=== PATIENT | male | born 1965 | race American Indian/Alaskan Native ===

== ENCOUNTER 2020-04-08 21:30 | Inpatient (IN) | payer OTHER ==
--- NOTE | 2020-04-08 21:51 | Emergency Department Report ---
ED Shortness of Breath HPI - General Chief Complaint: Dyspnea/Respdistress Stated Complaint: SOB/COVID + Time Seen by Provider: 04/08/20 21:46 Source: patient, EMS Mode of arrival: Stretcher Limitations: No Limitations - History of Present Illness Initial Comments: Patient is a 55-year-old male who presents emergency room with complaints of shortness of breath, Covid positive, cough, fever, chills, diarrhea, loss of smell and taste. Patient states his symptoms started 5 days ago. Patient states he was diagnosed 3 days ago with COVID-19. Patient states his symptoms are worsening. Patient states he is taking Tylenol for his fever and chills. Patient states his diarrhea has improved. Patient states his shortness of breath is better with rest and worse with exertion. Patient brought in by EMS. EMS report received. Patient on initial assessment was 86% on room air and was placed on 15 L and remained 86%. Patient states he feels better with the oxygen. MD Complaint: shortness of breath, cough -: Sudden Severity: severe Consistency: constant Improves With: rest Worsens With: exertion Known History Of: other Context: recent URI Associated Symptoms: fever, cough Treatments Prior to Arrival: oxygen - Related Data Home Oxygen Therapy: No Allergies Allergy/AdvReac Type Severity Reaction Status Date / Time No Known Allergies Allergy Unverified 04/08/20 22:37 ED Review of Systems ROS: Stated complaint: SOB/COVID + Other details as noted in HPI Constitutional: chills, fever, malaise Eyes: denies: eye pain, eye discharge, vision change ENT: denies: ear pain, throat pain Respiratory: see HPI, cough, shortness of breath. denies: wheezing Cardiovascular: denies: chest pain, palpitations Endocrine: no symptoms reported Gastrointestinal: diarrhea. denies: abdominal pain, nausea Genitourinary: denies: urgency, dysuria Musculoskeletal: denies: back pain, joint swelling, arthralgia Skin: denies: rash, lesions Neurological: denies: headache, weakness, paresthesias Psychiatric: denies: anxiety, depression Hematological/Lymphatic: denies: easy bleeding, easy bruising ED Past Medical Hx - Surgical History Past Surgical History?: No - Family History Family history: no significant - Social History Smoking Status: Never Smoker Substance Use Type: None ED Physical Exam - General Limitations: No Limitations General appearance: alert, in distress - Head Head exam: Present: atraumatic, normocephalic - Eye Eye exam: Present: normal appearance - ENT ENT exam: Present: mucous membranes moist - Neck Neck exam: Present: normal inspection - Respiratory Respiratory exam: Present: respiratory distress, decreased breath sounds - Cardiovascular Cardiovascular Exam: Present: regular rate, normal rhythm. Absent: systolic murmur, diastolic murmur, rubs, gallop - GI/Abdominal GI/Abdominal exam: Present: soft, normal bowel sounds - Rectal Rectal exam: Present: deferred - Extremities Exam Extremities exam: Present: normal inspection - Back Exam Back exam: Present: normal inspection - Neurological Exam Neurological exam: Present: alert, oriented X3 - Psychiatric Psychiatric exam: Present: normal affect, normal mood - Skin Skin exam: Present: warm, dry, intact, normal color. Absent: rash ED Course Vital Signs 04/08/20 04/08/20 04/08/20 21:35 21:52 21:56 Temperature 97.7 F Pulse Rate 92 H 90 Respiratory 32 H 11 L Rate Blood Pressure Blood Pressure 104/56 [Left] O2 Sat by Pulse 91 75 L Oximetry 04/08/20 04/08/20 04/08/20 22:00 22:15 22:16 Temperature Pulse Rate 92 H 92 H Respiratory 40 H 29 H 26 H Rate Blood Pressure 102/51 110/60 Blood Pressure [Left] O2 Sat by Pulse 91 95 96 Oximetry 04/08/20 04/08/20 04/08/20 22:30 22:45 23:00 Temperature Pulse Rate 91 H 90 91 H Respiratory 12 29 H 14 Rate Blood Pressure 110/60 106/62 102/51 Blood Pressure [Left] O2 Sat by Pulse 95 94 96 Oximetry 04/08/20 04/08/20 04/08/20 23:15 23:30 23:45 Temperature Pulse Rate 88 87 88 Respiratory 23 35 H Rate Blood Pressure 119/74 118/77 125/79 Blood Pressure [Left] O2 Sat by Pulse 94 94 92 Oximetry - Reevaluation(s) Reevaluation #1: Initial evaluation done. Patient severely hypoxic and will be placed on BiPAP. 04/08/20 21:46 Reevaluation #2: Patient on BiPAP. Patient states he is feeling better. Patient's oxygen saturation is better. Patient's work to breathe has improved. 04/08/20 22:25 Reevaluation #3: Patient having allergic reaction. Patient noted to have hives and patient will be given Benadryl. Patient is only received cefepime. 04/08/20 23:53 Reevaluation #4: I discussed all results with patient. I discussed plan of care with patient. Patient agrees with plan of care and admission. Patient to be admitted to the hospitalist service. 04/09/20 00:19 - Consultations Consultation #1: Hospitalist consulted for admission. Hospitalist to admit patient. 04/09/20 00:19 Consultation #2: I discussed case with [facility] physician, Dr. Trinidad. Dr. Trinidad states the patiulises nt can be admitted here. 04/09/20 01:34 ED Medical Decision Making - Lab Data Result diagrams: 04/08/20 23:06 04/08/20 23:06 - Radiology Data Radiology results: report reviewed, image reviewed CHEST 1 VIEW INDICATION / CLINICAL INFORMATION: MAIN. COMPARISON: None available. FINDINGS: SUPPORT DEVICES: None. HEART / MEDIASTINUM: No significant abnormality. LUNGS / PLEURA: Moderate diffuse patchy and confluent consolidative opacities throughout the lungs. No significant effusion. No pneumothorax. ADDITIONAL FINDINGS: No significant additional findings. IMPRESSION: 1. Moderate diffuse airspace disease throughout the lungs. Given this patient's history, atypical/viral pneumonia is suggested. Recommend clinical correlation and continued follow-up until resolution. - Medical Decision Making Patient is a 55-year-old male who presents emergency room with complaints of shortness of breath, Covid, fever chills, respiratory infection symptoms. Patient diagnosed with Covid 3 days prior to come to the hospital. Patient was found to be severely hypoxic with EMS. Patient was immediately placed on BiPAP and his oxygen improved. Patient states he was feeling better on BiPAP. Patient given broad-spectrum antibiotics and fluids and Decadron immediately after initial evaluation. Patient had labs done which were consistent with renal failure, elevated markers of Covid. Patient had a chest x-ray which shows bilateral pneumonia. ID consultation placed. [facility] further evaluation treatment. - Differential Diagnosis Covid, pneumonia, shortness of breath, respiratory failure, Critical Care Time: Yes Critical care time in (mins) excluding proc time.: 35 Critical care attestation.: If time is entered above; I have spent that time in minutes in the direct care of this critically ill patient, excluding procedure time. Critical Care Time: 35 minutes ED Disposition Clinical Impression: SOB (shortness of breath), COVID-19, Cough Respiratory failure Qualifiers: Chronicity: acute Respiratory failure complication: hypoxia Qualified Code(s): J96.01 - Acute respiratory failure with hypoxia Renal failure Qualifiers: Renal failure chronicity: acute Acute renal failure type: unspecified Qualified Code(s): N17.9 - Acute kidney failure, unspecified Fever Qualifiers: Fever type: unspecified Qualified Code(s): R50.9 - Fever, unspecified Disposition: DC-09 OP ADMIT IP TO THIS HOSP Is pt being admited?: Yes Does the pt Need Aspirin: No Condition: Critical Time of Disposition: 00:14
[2020-04-08] MEDS ORDERED: SODIUM CHLORIDE 0.9% 1000 ML IV SOLN IV ONE (21:52)
[2020-04-08] MEDS ORDERED: CEFEPIME/NS 2 GM/100 ML 2 GM/100 ML BAG IV ONE (21:53)
[2020-04-08] MEDS ORDERED: dexAMETHasone 4 MG/ML VIAL IV ONE (21:53)
[2020-04-08] MEDS ORDERED: AZITHROMYCIN 500 MG in SODIUM CHLORIDE 0.9% 250ML 250 ML IV ONE (22:45)
--- NOTE | 2020-04-08 22:45 | XRay Report ---
CHEST 1 VIEW INDICATION / CLINICAL INFORMATION: MAIN. COMPARISON: None available. FINDINGS: SUPPORT DEVICES: None. HEART / MEDIASTINUM: No significant abnormality. LUNGS / PLEURA: Moderate diffuse patchy and confluent consolidative opacities throughout the lungs. N o significant effusion. No pneumothorax. ADDITIONAL FINDINGS: No significant additional findings. IMPRESSION: 1. Moderate diffuse airspace disease throughout the lungs. Given this patient's history, atypical/vir al pneumonia is suggested. Recommend clinical correlation and continued follow-up until resolution. Signer Name: Tad Finn MD Signed: 04/08/2020 10:40 PM Workstation Name: [id number]
[2020-04-08] MEDS ORDERED: HYDROmorphone 1 MG/1 ML INJ IV ONE (23:30)
[2020-04-08 23:47] LABS: Basophils # (Auto) 0.1 K/mm3 (0.0-0.1); Basophils % (Auto) 0.6 % (0.0-1.8); Hematocrit 48.5 % (35.5-45.6); Lymphocytes # (Auto) 0.5 K/mm3 (1.2-5.4); Lymphocytes % (Auto) 4.5 % (13.4-35.0); Mean Corpuscular HGB Conc 35 % (32-34); Mean Corpuscular Volume 87 fl (84-94); Monocytes # (Auto) 0.8 K/mm3 (0.0-0.8); Monocytes % (Auto) 7.5 % (0.0-7.3); Platelet Count 276 K/mm3 (140-440); Red Blood Count 5.59 M/mm3 (3.65-5.03); Red Cell Distribution Width 14.2 % (13.2-15.2)
[2020-04-08 23:48] LABS: Albumin 3.5 g/dL (3.9-5); Calcium 8.9 mg/dL (8.4-10.2)
[2020-04-08 23:57] LABS: C-Reactive Protein 24.3 mg/dL (0.00-1.30)
[2020-04-09] MEDS ORDERED: diphenhydrAMINE 50 MG/ML VIAL IV ONE (00:08)
[2020-04-09] MEDS ORDERED: SODIUM CHLORIDE 0.9% 1000 ML 2,000 ML ONE (00:11)
[2020-04-09] MEDS ORDERED: MORPHINE 2 MG/1 ML INJ IV PRN (02:25)
[2020-04-09] MEDS ORDERED: ONDANSETRON 4 MG/2 ML INJ IV PRN (02:25)
[2020-04-09] MEDS ORDERED: MAGNESIUM HYDROXIDE (MOM) ORAL LIQD UDC PO PRN (02:25)
[2020-04-09] MEDS ORDERED: ACETAMINOPHEN 325 MG TAB PO PRN (02:25)
--- NOTE | 2020-04-09 02:39 | History and Physical Report ---
History of Present Illness Date of examination: 04/08/20 Date of admission: 04/09/20 00:21 Chief complaint: Shortness of Breath History of present illness: 55-year-old male was diagnosed with Covid 19 at an outside facility few days ago presenting to the emergency room today complaining of shortness of breath, cough and fever. He also states that he has been having loss of smell and taste. Symptoms started about 5 days ago and he was diagnosed COVID-19 just 3 days ago. He had some diarrhea which has since improved. Patient has been taking some Tylenol for his fever and chills. Upon arrival in the emergency room today patient was in respiratory distress and was having O2 saturation of about 85% room air. He was subsequently placed on BiPAP. Work-up in the emergency room today reveals bilateral pneumonia. Patient was placed on empiric IV antibiotics and also started on IV steroid. He has also been placed on isolation precautions for COVID-19. Past History Past Medical History: No medical history Past Surgical History: No surgical history Social history: no significant social history Family history: no significant family history Medications and Allergies Allergies Allergy/AdvReac Type Severity Reaction Status Date / Time cefepime Allergy Hives Verified 04/09/20 03:19 Active Meds: Active Medications Acetaminophen (Acetaminophen 325 Mg Tab) 650 mg PO Q6H PRN PRN Reason: Pain MILD(1-3)/Fever >100.5/SARKAR Heparin Sodium (Porcine) (Heparin 5,000 Unit/1 Ml Vial) 5,000 unit SUB-Q Q8HR GLORIA Ceftriaxone Sodium (Rocephin/Ns 2 Gm/100 Ml) 2 gm in 100 mls @ 200 mls/hr IV Q24HR GLORIA; Protocol Azithromycin 500 mg/ Sodium (Chloride) 250 mls @ 250 mls/hr IV Q24HR GLORIA; Protocol Magnesium Hydroxide (Magnesium Hydroxide (Mom) Oral Liqd Udc) 30 ml PO Q4H PRN PRN Reason: Constipation Morphine Sulfate (Morphine 2 Mg/1 Ml Inj) 2 mg IV Q4H PRN PRN Reason: Pain, Moderate (4-6) Ondansetron HCl (Ondansetron 4 Mg/2 Ml Inj) 4 mg IV Q8H PRN PRN Reason: Nausea And Vomiting Sodium Chloride (Sodium Chloride 0.9% 10 Ml Flush Syringe) 10 ml IV BID GLORIA Sodium Chloride (Sodium Chloride 0.9% 10 Ml Flush Syringe) 10 ml IV PRN PRN PRN Reason: LINE FLUSH Review of Systems Constitutional: weakness, no fever Ears, nose, mouth and throat: no nasal congestion, no sore throat Cardiovascular: no chest pain, no palpitations Respiratory: cough, shortness of breath Gastrointestinal: no abdominal pain, no nausea, no vomiting, no diarrhea Genitourinary Male: no dysuria, no hematuria, no nocturia Musculoskeletal: no neck pain, no low back pain Integumentary: no rash, no pruritis Neurological: no headaches, no confusion Psychiatric: no anxiety, no depression Exam - Constitutional Vitals: Temp Pulse Resp BP Pulse Ox 97.7 F 88 35 H 103/68 94 04/08/20 21:52 04/08/20 23:45 04/08/20 23:30 04/09/20 01:30 04/09/20 01:30 General appearance: Present: no acute distress, well-nourished - EENT Eyes: Present: PERRL, EOM intact. Absent: scleral icterus ENT: hearing intact, clear oral mucosa, dentition normal - Neck Neck: Present: supple, normal ROM - Respiratory Respiratory effort: normal Respiratory: bilateral: CTA - Cardiovascular Rhythm: regular Heart Sounds: Present: S1 & S2. Absent: gallop, systolic murmur, diastolic murmur, rub - Extremities Extremities: no ischemia, pulses intact, pulses symmetrical, No edema, Full ROM Peripheral Pulses: within normal limits - Abdominal General gastrointestinal: Present: soft, non-tender, non-distended, normal bowel sounds. Absent: mass - Integumentary Integumentary: Present: clear, warm, dry. Absent: rash - Musculoskeletal Musculoskeletal: strength equal bilaterally - Psychiatric Psychiatric: appropriate mood/affect, intact judgment & insight, memory intact, cooperative - Neurologic Neurologic: CNII-XII intact, no focal deficits, moves all extremities Results - Labs CBC & Chem 7: 04/08/20 23:06 04/08/20 23:06 Labs: Abnormal lab results 04/08/20 04/08/20 04/08/20 Range/Units 23:06 23:06 23:06 RBC 5.59 H (3.65-5.03) M/mm3 Hgb 17.0 H (11.8-15.2) gm/dl Hct 48.5 H (35.5-45.6) % MCHC 35 H (32-34) % Lymph % (Auto) 4.5 L (13.4-35.0) % [place] % (Auto) 7.5 H (0.0-7.3) % Lymph # (Auto) 0.5 L (1.2-5.4) K/mm3 Seg Neutrophils % 87.4 H (40.0-70.0) % Seg Neutrophils # 9.3 H (1.8-7.7) K/mm3 D-Dimer 574.04 H (0-234) ng/mlDDU Sodium 136 L (137-145) mmol/L BUN 31 H (9-20) mg/dL Creatinine 1.9 H (0.8-1.3) mg/dL Glucose 132 H (75-100) mg/dL Ferritin (30.0-300.0) ng/mL AST 107 H (5-40) units/L ALT 69 H (7-56) units/L Lactate Dehydrogenase (91-180) units/L C-Reactive Protein (0.00-1.30) mg/dL Albumin 3.5 L (3.9-5) g/dL 04/08/20 04/08/20 Range/Units 23:06 23:06 RBC (3.65-5.03) M/mm3 Hgb (11.8-15.2) gm/dl Hct (35.5-45.6) % MCHC (32-34) % Lymph % (Auto) (13.4-35.0) % [place] % (Auto) (0.0-7.3) % Lymph # (Auto) (1.2-5.4) K/mm3 Seg Neutrophils % (40.0-70.0) % Seg Neutrophils # (1.8-7.7) K/mm3 D-Dimer (0-234) ng/mlDDU Sodium (137-145) mmol/L BUN (9-20) mg/dL Creatinine (0.8-1.3) mg/dL Glucose 131 H (75-100) mg/dL Ferritin 1068.0 H (30.0-300.0) ng/mL AST (5-40) units/L ALT (7-56) units/L Lactate Dehydrogenase 858 H (91-180) units/L C-Reactive Protein 24.30 H (0.00-1.30) mg/dL Albumin (3.9-5) g/dL Assessment and Plan - Patient Problems (1) COVID-19 Current Visit: Yes Status: Acute Plan to address problem: Patient placed on isolation precautions. We will await infectious disease evaluation. Consult also placed to employee representative for evaluation. (2) Renal failure Current Visit: Yes Status: Acute Qualifiers: Renal failure chronicity: acute Acute renal failure type: unspecified Qualified Code(s): N17.9 - Acute kidney failure, unspecified Plan to address problem: Patient placed on gentle IV fluid hydration. Will monitor BUN and creatinine. Baseline creatinine unknown. We will place a consult to nephrology for evaluation. (3) Respiratory failure Current Visit: Yes Status: Acute Qualifiers: Chronicity: acute Respiratory failure complication: hypoxia Qualified Code(s): J96.01 - Acute respiratory failure with hypoxia Plan to address problem: Due to the pneumonia secondary to Covid. We will await pulmonology evaluation. (4) DVT prophylaxis Current Visit: Yes Status: Acute Plan to address problem: Patient placed on subcutaneous heparin (5) Full code status Current Visit: Yes Status: Acute
[2020-04-09] MEDS: HEPARIN 5,000 UNIT/1 ML VIAL SUB-Q SCH ×2 (06:09→17:57)
--- NOTE | 2020-04-09 08:40 | Consultation ---
History of Present Illness - Reason for Consult Consult date: 04/09/20 r/o COVID Requesting physician: PATTI CARVALHO III - History of Present Illness 52 years old male with history of with no significant past medical history, admitted on 04/08/2020 secondary to 5-day history of generalized malaise, cough, fever, shortness of breath, loss of smell and taste. Patient also reported diarrhea. Patient tested positive for COVID-19 as an outpatient 3 days before admission. On arrival, temperature 97.7, HR 92, RR 32, O2 sat 91% drop to 75%, BP 104/56. Initial WBC 10. D-dimer 574. Creatinine 1.9. AST 107, ALT 69. CRP 24. Blood cultures pending. Chest x-ray shows diffuse bilateral airspace disease. Review of Systems: reviewed ED and H&P notes. Deferred to prevent COVID-19 transmission. Past History Past Medical History: No medical history Past Surgical History: No surgical history Social history: no significant social history Family history: no significant family history Medications and Allergies Allergies Allergy/AdvReac Type Severity Reaction Status Date / Time cefepime Allergy Hives Verified 04/09/20 03:19 Active Meds: Active Medications Acetaminophen (Acetaminophen 325 Mg Tab) 650 mg PO Q6H PRN PRN Reason: Pain MILD(1-3)/Fever >100.5/SARKAR Heparin Sodium (Porcine) (Heparin 5,000 Unit/1 Ml Vial) 5,000 unit SUB-Q Q8HR GLORIA Last Admin: 04/09/20 06:09 Dose: 5,000 unit Documented by: Ceftriaxone Sodium (Rocephin/Ns 2 Gm/100 Ml) 2 gm in 100 mls @ 200 mls/hr IV Q24HR GLORIA; Protocol Azithromycin 500 mg/ Sodium (Chloride) 250 mls @ 250 mls/hr IV Q24HR GLORIA; Protocol Magnesium Hydroxide (Magnesium Hydroxide (Mom) Oral Liqd Udc) 30 ml PO Q4H PRN PRN Reason: Constipation Morphine Sulfate (Morphine 2 Mg/1 Ml Inj) 2 mg IV Q4H PRN PRN Reason: Pain, Moderate (4-6) Ondansetron HCl (Ondansetron 4 Mg/2 Ml Inj) 4 mg IV Q8H PRN PRN Reason: Nausea And Vomiting Sodium Chloride (Sodium Chloride 0.9% 10 Ml Flush Syringe) 10 ml IV BID GLORIA Sodium Chloride (Sodium Chloride 0.9% 10 Ml Flush Syringe) 10 ml IV PRN PRN PRN Reason: LINE FLUSH Physical Examination - Physical Exam Narrative exam: Physical Exam: reviewed ED and hospitalist notes. Deferred to prevent COVID-19 transmission. - Constitutional Vitals: Vital Signs Temp Pulse Resp BP Pulse Ox 97.7 F 66 26 H 102/62 95 04/08/20 21:52 04/09/20 08:28 04/09/20 08:28 04/09/20 08:28 04/09/20 08:28 Temperature -Last 24 Hours Temperature 97.7 F Results - Labs CBC & Chem 7: 04/08/20 23:06 04/08/20 23:06 Labs: Abnormal lab results 04/08/20 04/08/20 04/08/20 Range/Units 23:06 23:06 23:06 RBC 5.59 H (3.65-5.03) M/mm3 Hgb 17.0 H (11.8-15.2) gm/dl Hct 48.5 H (35.5-45.6) % MCHC 35 H (32-34) % Lymph % (Auto) 4.5 L (13.4-35.0) % [place] % (Auto) 7.5 H (0.0-7.3) % Lymph # (Auto) 0.5 L (1.2-5.4) K/mm3 Seg Neutrophils % 87.4 H (40.0-70.0) % Seg Neutrophils # 9.3 H (1.8-7.7) K/mm3 D-Dimer 574.04 H (0-234) ng/mlDDU Sodium 136 L (137-145) mmol/L BUN 31 H (9-20) mg/dL Creatinine 1.9 H (0.8-1.3) mg/dL Glucose 132 H (75-100) mg/dL Ferritin (30.0-300.0) ng/mL AST 107 H (5-40) units/L ALT 69 H (7-56) units/L Lactate Dehydrogenase (91-180) units/L C-Reactive Protein (0.00-1.30) mg/dL Albumin 3.5 L (3.9-5) g/dL 04/08/20 04/08/20 Range/Units 23:06 23:06 RBC (3.65-5.03) M/mm3 Hgb (11.8-15.2) gm/dl Hct (35.5-45.6) % MCHC (32-34) % Lymph % (Auto) (13.4-35.0) % [place] % (Auto) (0.0-7.3) % Lymph # (Auto) (1.2-5.4) K/mm3 Seg Neutrophils % (40.0-70.0) % Seg Neutrophils # (1.8-7.7) K/mm3 D-Dimer (0-234) ng/mlDDU Sodium (137-145) mmol/L BUN (9-20) mg/dL Creatinine (0.8-1.3) mg/dL Glucose 131 H (75-100) mg/dL Ferritin 1068.0 H (30.0-300.0) ng/mL AST (5-40) units/L ALT (7-56) units/L Lactate Dehydrogenase 858 H (91-180) units/L C-Reactive Protein 24.30 H (0.00-1.30) mg/dL Albumin (3.9-5) g/dL Assessment and Plan Cultures: Blood culture pending SARS CoV2 PCR positive as an outpatient Assessment: 52 years old male with history of with no significant past medical history, admitted on 04/08/2020 secondary to 5-day history of generalized malaise, cough, fever, shortness of breath, loss of smell and taste: #Severe sepsis: Present on admission with hypoxia, hypotension, RICKY and elevated LFTs. Likely due to bilateral pneumonia. #Severe COVID pneumonia: Noted elevated inflammatory markers. Chest x-ray with bilateral airspace disease. #Acute hypoxemic respiratory failure: Initial O2 sats dropped to 75%. Patient currently on BiPAP. #Elevated LFTs: from COVID #RICKY: from COVID #Acute diarrhea: For COVID-19 infection. Recommendations: -Pulmonary consult -Start Dexamethasone 6 mg IV/PO daily for 10 days -Start Remdesivir total 5 days -Monitor inflammatory markers - ferritin, Ddimer, CRP, LDH -Stop ceftriaxone, history of cefepime allergy -Continue azithromycin, will stop if procalcitonin <0.25 ng/mL -Obtain procalcitonin -Monitor liver function test on Remdesivir -Continue anticoagulation per System Protocol -Prone positioning as possible -Obtain SARS CoV-2 IgG to determine if patient is a candidate for COVID convalescent plasma All laboratory, cultures and imaging were reviewed. Will follow Ave Morales MD Infectious Diseases [facility] M [phone] O [phone]
[2020-04-09] MEDS ORDERED: REMDESIVIR 200 MG in SODIUM CHLORIDE 0.9% 250ML 250 ML IV ONE (09:30)
[2020-04-09] MEDS ORDERED: REMDESIVIR 100 MG VIAL IV ONE (09:30)
[2020-04-09] MEDS ORDERED: cefTRIAXone/NS 2 GM/100 ML 2 GM/100 ML BAG IV SCH (10:00)
--- NOTE | 2020-04-09 10:12 | Consultation ---
History of Present Illness - Reason for Consult Consult date: 04/09/20 acute renal failure - History of Present Illness The patient is a 52 YO male with history significant for Obesity who presented to [facility] with 5-6 day history of worsening sob. He also reports malaise, cough, fever, shortness of breath, loss of smell & taste and diarrhea. Patient tested positive for COVID-19 as an outpatient 3 days before admission. History positive for sick contact. On arrival, temperature 97.7, HR 92, RR 32, O2 sat 91% drop to 75%, BP 104/56. Labs significant for D-dimer 574, Creatinine 1.9, AST 107, ALT 69 and CRP 24. Chest x-ray showed diffuse bilateral airspace disease. Patient was put on BIPAP. Pt denies any prior kidney problem. Nephrology was consulted for further evaluation. Past History Past Medical History: No medical history Past Surgical History: No surgical history Social history: no significant social history Family history: no significant family history Medications and Allergies Allergies Allergy/AdvReac Type Severity Reaction Status Date / Time cefepime Allergy Hives Verified 04/09/20 03:19 Active Meds: Active Medications Acetaminophen (Acetaminophen 325 Mg Tab) 650 mg PO Q6H PRN PRN Reason: Pain MILD(1-3)/Fever >100.5/SARKAR Dexamethasone (Dexamethasone 4 Mg/Ml Vial) 6 mg IV Q24HR GLORIA Stop: 04/18/20 10:01 Heparin Sodium (Porcine) (Heparin 5,000 Unit/1 Ml Vial) 5,000 unit SUB-Q Q8HR GLORIA Last Admin: 04/09/20 06:09 Dose: 5,000 unit Documented by: Azithromycin 500 mg/ Sodium (Chloride) 250 mls @ 250 mls/hr IV Q24HR GLORIA; Protocol REMDESIVIR 100 mg/ Sodium (Chloride) 250 mls @ 500 mls/hr IV Q24HR@2100 GLORIA Stop: 04/13/20 21:29 Magnesium Hydroxide (Magnesium Hydroxide (Mom) Oral Liqd Udc) 30 ml PO Q4H PRN PRN Reason: Constipation Morphine Sulfate (Morphine 2 Mg/1 Ml Inj) 2 mg IV Q4H PRN PRN Reason: Pain, Moderate (4-6) Ondansetron HCl (Ondansetron 4 Mg/2 Ml Inj) 4 mg IV Q8H PRN PRN Reason: Nausea And Vomiting Sodium Chloride (Sodium Chloride 0.9% 10 Ml Flush Syringe) 10 ml IV BID GLORIA Sodium Chloride (Sodium Chloride 0.9% 10 Ml Flush Syringe) 10 ml IV PRN PRN PRN Reason: LINE FLUSH Sodium Chloride (Sodium Chloride 0.9% 50 Ml Ivpb) 50 ml IV Q24HR@2100 GLORIA Stop: 04/13/20 21:01 Review of Systems Constitutional: malaise, no weight loss, no weight gain, no fever Cardiovascular: shortness of breath, dyspnea on exertion, no chest pain, no orthopnea, no lightheadedness Respiratory: shortness of breath, dyspnea on exertion, no cough, no excessive sputum, no hemoptysis Gastrointestinal: no abdominal pain, no nausea, no vomiting, no diarrhea, no melena Genitourinary Male: no dysuria, no hematuria Rectal: no bleeding Integumentary: no rash Neurological: no seizures, no syncope, no aphasia, no change in speech, no change in mentation, no confusion Exam - Vital Signs Vital signs: Vital Signs Pulse Resp BP Pulse Ox 92 H 32 H 104/56 91 04/08/20 21:35 04/08/20 21:35 04/08/20 21:35 04/08/20 21:35 Results - Lab Results 04/08/20 23:06 04/09/20 09:55 Most recent lab results Calcium 8.9 mg/dL (8.4-10.2) 04/08/20 23:06 Assessment and Plan 1. Acute kidney injury: Likely vasomotor nephropathy in the setting of hypotension and COVID-19 infection. Urine studies and Renal US ordered. Baseline renal function is unknown. Monitor renal function. Creatinine level is 2 from 1.9. Avoid nephrotoxic agents. Meds dosage based on GFR. 2. FEN: Metabolic acidosis, monitor. Monitor lytes and volume status. 3. Acute respiratory failure with hypoxia: 2/2 COVID PNA. On BIPAP. 4. Severe sepsis, POA: 2/2 COVID PNA. Cefepime, stopped now 2/2 hives. Followed by ID. 5. Bilateral pneumonia, POA: 2/2 COVID infection. On Abx and IV Decadron. 6. Severe COVID pneumonia: Elevated inflammatory markers. 7. Elevated LFTs: 2/2 COVID. 8. Acute diarrhea: 2/2 COVID-19 infection. Subjective: Patient was seen and examined at the bedside. Examination: General appearance: well-developed, appears stated age, intubated, on BIPAP HEENT: Pupils reacting to light Neck: Trachea midline Respiratory: coarse breath sounds heard Cardiology: regular, S1S2, no murmur Gastrointestinal: normoactive bowel sounds, no tenderness, ND Integumentary: no obvious rash Neurologic: AOX4, able to move extremities Ext: no edema
[2020-04-09 11:36] LABS: Calcium 8.9 mg/dL (8.4-10.2)
--- NOTE | 2020-04-09 12:34 | Event Note ---
This is a 55-year-old male with no significant medical history who presented to the emergency department on 04/08 with a 5-day history of generalized malaise, cough, fever, shortness of breath, loss of smell and taste and diarrhea. Patient is tested positive for COVID-19 at outpatient facility 3 days before admission. Upon arrival to the emergency department his SPO2 on room air was 85% and was subsequently placed on BiPAP. Work-up emergency department revealed sepsis (presented with hypoxia, hypotension, acute kidney injury and transaminitis likely secondary to bilateral pneumonia), bilateral pneumonia on CXR, acute kidney injury, diarrhea, acute hypoxic respiratory failure, transaminitis and the patient was placed on empiric antibiotics and started on steroids. In the emergency department he received 3.5 L of normal saline, azithromycin, cefepime and dexamethasone. Patient was admitted to the hospitalist service with a consult to nephrology, infectious disease and p ulmonology. Today on examination patient remains on BiPAP with 80% FiO2 with SPO2 of 94%. Patient's RN informed that COVID-19 PCR needs to be sent. Infectious disease has started the patient on remdesivir, will monitor LFTs along with COVID-19 inflammatory markers. Patient will continue his azithromycin and his ceftriaxone was stopped due to cefepime allergy. ID has also ordered a SARS CoV-2 IgG to determine candidacy for convalescent plasma. We will continue to monitor.
[2020-04-09] MEDS: AZITHROMYCIN 500 MG in SODIUM CHLORIDE 0.9% 250ML 250 ML IV SCH (13:26)
[2020-04-09] MEDS: dexAMETHasone 4 MG/ML VIAL IV SCH (13:29)
--- NOTE | 2020-04-09 13:31 | Consultation ---
History of Present Illness Consult date: 04/09/20 Requesting physician: MIKE PETERS History of present illness: This is a 55-year-old male with no significant medical history who presented to the emergency department on 04/08 with a 5-day history of generalized malaise, cough, fever, shortness of breath, loss of smell and taste and diarrhea. Patient is tested positive for COVID-19 at outpatient facility 3 days before admission. Upon arrival to the emergency department his SPO2 on room air was 85% and was subsequently placed on BiPAP. Work-up emergency department revealed sepsis (presented with hypoxia, hypotension, acute kidney injury and transaminitis likely secondary to COVID, bilateral infiltrates on CXR, acute kidney injury, diarrhea, acute hypoxic respiratory failure, transaminitis and the patient was placed on empiric antibiotics and started on steroids. In the emergency department he received 3.5 L of normal saline, azithromycin, cefepime and dexamethasone. Patient was admitted to the hospitalist service with a consult to pulmonology. Patient seen and examined. Vitals, labs, medications, chart and imaging reviewed. He is on BIPAP via a FFM Today on examination patient remains on BiPAP with 80% FiO2 with SPO2 of 94%. He is resting comfortably in bed. States his daughter is currently COVID positive but is at home Review of Systems Constitutional: weakness, no fever Ears, nose, mouth and throat: no nasal congestion, no sore throat Cardiovascular: no chest pain, no palpitations Respiratory: cough, shortness of breath Gastrointestinal: no abdominal pain, no nausea, no vomiting, no diarrhea Genitourinary Male: no dysuria, no hematuria, no nocturia Musculoskeletal: no neck pain, no low back pain Integumentary: no rash, no pruritis Neurological: no headaches, no confusion Psychiatric: no anxiety, no depression Past History Past Medical History: No medical history Past Surgical History: No surgical history Social history: no significant social history Family history: no significant family history Medications and Allergies Allergies Allergy/AdvReac Type Severity Reaction Status Date / Time cefepime Allergy Hives Verified 04/09/20 03:19 Active Meds: Active Medications Acetaminophen (Acetaminophen 325 Mg Tab) 650 mg PO Q6H PRN PRN Reason: Pain MILD(1-3)/Fever >100.5/SARKAR Dexamethasone (Dexamethasone 4 Mg/Ml Vial) 6 mg IV Q24HR GLORIA Stop: 12/20/20 10:01 Heparin Sodium (Porcine) (Heparin 5,000 Unit/1 Ml Vial) 5,000 unit SUB-Q Q8HR [facility] Last Admin: 04/09/20 06:09 Dose: 5,000 unit Documented by: Azithromycin 500 mg/ Sodium (Chloride) 250 mls @ 250 mls/hr IV Q24HR [facility]; Protocol REMDESIVIR 100 mg/ Sodium (Chloride) 250 mls @ 500 mls/hr IV Q24HR@2100 GLORIA Stop: 04/13/20 21:29 Magnesium Hydroxide (Magnesium Hydroxide (Mom) Oral Liqd Udc) 30 ml PO Q4H PRN PRN Reason: Constipation Morphine Sulfate (Morphine 2 Mg/1 Ml Inj) 2 mg IV Q4H PRN PRN Reason: Pain, Moderate (4-6) Ondansetron HCl (Ondansetron 4 Mg/2 Ml Inj) 4 mg IV Q8H PRN PRN Reason: Nausea And Vomiting Sodium Chloride (Sodium Chloride 0.9% 10 Ml Flush Syringe) 10 ml IV BID GLORIA Sodium Chloride (Sodium Chloride 0.9% 10 Ml Flush Syringe) 10 ml IV PRN PRN PRN Reason: LINE FLUSH Sodium Chloride (Sodium Chloride 0.9% 50 Ml Ivpb) 50 ml IV Q24HR@2100 GLORIA Stop: 04/13/20 21:01 Physical Examination Vital signs: Vital Signs Pulse Resp BP Pulse Ox 92 H 32 H 104/56 91 04/08/20 21:35 04/08/20 21:35 04/08/20 21:35 04/08/20 21:35 General appearance: other (mild respiratory distress on FFM BIPAP) Eyes: non-icteric Neck: supple, no lymphadenopathy, no JVD, other (large short neck) Effort: mildly labored Ascultation: Bilateral: diminished breath sounds, rhonchi Cardiovascular: regular rate and rhythm, other (S1,S2) Gastrointestinal: normoactive bowel sounds, soft, non-tender, non-distended Integumentary: normal Extremities: no cyanosis, no edema, pulses normal normal mental status, non-focal exam, pupils equal and round, motor strength normal and mood appropriate, affect normal Results - Laboratory Findings CBC and BMP: 04/08/20 23:06 04/09/20 09:55 PT/INR, D-dimer D-Dimer 574.04 ng/mlDDU (0-234) H 04/08/20 23:06 Abnormal lab findings: Abnormal Labs 04/08/20 04/08/20 04/08/20 23:06 23:06 23:06 RBC 5.59 H Hgb 17.0 H Hct 48.5 H MCHC 35 H Lymph % (Auto) 4.5 L [place] % (Auto) 7.5 H Lymph # (Auto) 0.5 L Seg Neutrophils % 87.4 H Seg Neutrophils # 9.3 H D-Dimer 574.04 H Sodium 136 L Carbon Dioxide BUN 31 H Creatinine 1.9 H Glucose 132 H Ferritin AST 107 H ALT 69 H Lactate Dehydrogenase C-Reactive Protein Albumin 3.5 L 04/08/20 04/08/20 04/09/20 23:06 23:06 09:55 RBC Hgb Hct MCHC Lymph % (Auto) [place] % (Auto) Lymph # (Auto) Seg Neutrophils % Seg Neutrophils # D-Dimer Sodium Carbon Dioxide 17 L BUN 33 H Creatinine 2.0 H Glucose 131 H 135 H Ferritin 1068.0 H AST ALT Lactate Dehydrogenase 858 H C-Reactive Protein 24.30 H Albumin - Diagnostic Findings Chest x-ray: image reviewed (Bilateral alveolar space disease) Assessment and Plan 52 years old male with history of with no significant past medical history, admitted on 04/08/2020 secondary to 5-day history of generalized malaise, cough, fever, shortness of breath, loss of smell and taste: DIAGNOSIS -Severe sepsis -Acute hypoxemic respiratory failure on BIPAP -Bilateral Pneumonia -Severe COVID infection -Elevated LFTs -RICKY -Acute diarrhea -Acidosis Recommendations: -ABG -Wean supplemental oxygen for O2 sats>90% -Awake proning, lateral decubitus positioning as tolerated - accuchecks with glycemic control per SSI (While critically ill target blood glucose of 140-180 mg/dL; avoid hypoglycemia) - Monitor liver function test , avoid hepatotoxic agents - Avoid nephrotoxins, renally dose all medications, conservative fluid management -Empiric antibitoics fro CAP -Get transthoracic echocardiogram to evaluate LVEF - Avoid benzodiazepines, reduce the possibility of delirium - prn analgesia per CPOT score - Maintenance of sleep-wake cycle, avoid delirium - Aspiration precautions -CXR in am -CBC, BMP in am -Supportive transfusions to keep HgB >7g/dL - Monitor hemodynamics closely - continue other care per attending / other consultants COVID SPECIFIC INTERVENTIONS - SARS CoV-2 IgG , pending -On Remdesivir, monitor for hepatoxicity and nephrotoxicity -On dexamethasone -Monitor inflammatory markers - ferritin, dimer, CRP, LDH per facility protocol -Anticoagulation per System Protocol based on d-dimer -Continue contact and airborne isolation per facility protocol CONDITION: CRITICAL PROGNOSIS: GUARDED CODE STATUS: FULL CODE The high probability of a clinically significant, sudden or life-threatening deterioration of the [respiratory, renal system(s) required my full and direct attention, intervention and personal management. The aggregate critical care time was [35] minutes without overlap. Time includes spent on; [x] Data Review and interpretation [x] Patient assessment and monitoring of vital signs [x] Documentation [x] Medication orders and management
[2020-04-09] MEDS: SODIUM CHLORIDE 0.9% 50 ML IVPB IV SCH (13:40)
[2020-04-09] MEDS: MIDODRINE 5 MG TAB PO SCH (18:00)
[2020-04-09 18:04] LABS: Creatinine,Urine 176.6 mg/dL (0.1-20.0)
[2020-04-09 18:05] LABS: Bilirubin,Urine NEG (Negative); Blood,Urine NEG (Negative); Color,Urine Yellow (Yellow); Hyaline Casts,Urine 2 /LPF; Mucus,Urine FEW /HPF; Protein,Urine <15 mg/dL mg/dL (Negative); Urobilinogen,Urine < 2.0 mg/dL (<2.0)
[2020-04-09 20:18] LABS: ABG Base Excess -1.8 mmol/L (-2.0-3.0); ABG HCO3 23.2 mmol/L (20.0-26.0); ABG Methemoglobin 0.6 % (0.0-1.5); ABG Oxygen Saturation 93.2 % (95.0-99.0); ABG PCO2 40.4 mm Hg; ABG PH 7.376 pH Units (7.350-7.450); ABG PO2 67.1 mm Hg (80.0-90.0)
[2020-04-10 05:55] LABS: Basophils % (Auto) 0.1 % (0.0-1.8); Hematocrit 43.6 % (35.5-45.6); Hemoglobin 14.9 gm/dl (11.8-15.2); Lymphocytes # (Auto) 0.6 K/mm3 (1.2-5.4); Lymphocytes % (Auto) 4.8 % (13.4-35.0); Mean Corpuscular HGB Conc 34 % (32-34); Mean Corpuscular Volume 88 fl (84-94); Monocytes # (Auto) 1.2 K/mm3 (0.0-0.8); Monocytes % (Auto) 9.5 % (0.0-7.3); Platelet Count 323 K/mm3 (140-440); Red Blood Count 4.94 M/mm3 (3.65-5.03); Red Cell Distribution Width 14.1 % (13.2-15.2)
[2020-04-10 06:01] LABS: INR 1.14 (0.87-1.13)
[2020-04-10] MEDS: HEPARIN 5,000 UNIT/1 ML VIAL SUB-Q SCH ×4 (06:15→21:27)
[2020-04-10 06:18] LABS: Albumin 3.2 g/dL (3.9-5); Bilirubin,Direct 0.2 mg/dL (0-0.2)
[2020-04-10 06:37] LABS: BUN/Creatinine Ratio 31; Blood Urea Nitrogen 43 mg/dL (9-20); Calcium 8.4 mg/dL (8.4-10.2); Hemolysis Index 4
--- NOTE | 2020-04-10 09:44 | Progress Note ---
Assessment and Plan Assessment and plan: Acute hypoxemic respiratory failure. Continue O2 and BiPAP as clinically indicated. Etiology secondary to sepsis and severe Covid pneumonia. Severe sepsis. Patient meets criteria given the tachypnea, leukocytosis and diagnosis of pneumonia. Patient also with organ dysfunction of acute kidney injury and respiratory failure. Etiology secondary to Covid pneumonia. Severe Covid pneumonia. Continue to monitor elevated inflammatory markers. Continue dexamethasone and remdesivir. Follow-up pro calcitonin level. Continue anticoagulation per protocol. Prone positioning when possible. Elevated LFTs. Etiology secondary to Covid/sepsis. Acute kidney injury. Etiology secondary to sepsis/ATN Acute diarrhea. 04/10/2020. Patient currently with high flow nasal cannula 40 L/min O2 with FiO2 of 100%. Procalcitonin normal at 0.51. CRP elevated at 24.3, LDH 858 and ferritin 1068 and D-dimer 574. Trend inflammatory markers today. History Interval history: No new issues overnight. Hospitalist Physical - Constitutional Vitals: Temp Pulse Resp BP Pulse Ox 98.6 F 72 20 103/57 89 04/10/20 05:52 04/10/20 05:52 04/10/20 05:52 04/10/20 05:52 04/10/20 08:48 General appearance: Present: no acute distress, well-nourished - EENT Eyes: Present: PERRL, EOM intact ENT: hearing intact, clear oral mucosa, dentition normal - Neck Neck: Present: supple, normal ROM - Respiratory Respiratory effort: normal Respiratory: bilateral: CTA - Cardiovascular Rhythm: regular Heart Sounds: Present: S1 & S2. Absent: gallop, rub - Extremities Extremities: no ischemia, No edema, Full ROM - Abdominal General gastrointestinal: soft, non-tender, non-distended, normal bowel sounds - Integumentary Integumentary: Present: clear, warm, dry - Neurologic Neurologic: CNII-XII intact, moves all extremities Results - Labs CBC & Chem 7: 04/10/20 04:57 04/10/20 04:57 Labs: Laboratory Last Values WBC 12.3 K/mm3 (4.5-11.0) H 04/10/20 04:57 RBC 4.94 M/mm3 (3.65-5.03) 04/10/20 04:57 Hgb 14.9 gm/dl (11.8-15.2) 04/10/20 04:57 Hct 43.6 % (35.5-45.6) 04/10/20 04:57 MCV 88 fl (84-94) 04/10/20 04:57 MCH 30 pg (28-32) 04/10/20 04:57 MCHC 34 % (32-34) 04/10/20 04:57 RDW 14.1 % (13.2-15.2) 04/10/20 04:57 Plt Count 323 K/mm3 (140-440) 04/10/20 04:57 Lymph % (Auto) 4.8 % (13.4-35.0) L 04/10/20 04:57 [place] % (Auto) 9.5 % (0.0-7.3) H 04/10/20 04:57 Eos % (Auto) 0.0 % (0.0-4.3) 04/10/20 04:57 Baso % (Auto) 0.1 % (0.0-1.8) 04/10/20 04:57 Lymph # (Auto) 0.6 K/mm3 (1.2-5.4) L 04/10/20 04:57 [place] # (Auto) 1.2 K/mm3 (0.0-0.8) H 04/10/20 04:57 Eos # (Auto) 0.0 K/mm3 (0.0-0.4) 04/10/20 04:57 Baso # (Auto) 0.0 K/mm3 (0.0-0.1) 04/10/20 04:57 Seg Neutrophils % 85.6 % (40.0-70.0) H 04/10/20 04:57 Seg Neutrophils # 10.5 K/mm3 (1.8-7.7) H 04/10/20 04:57 PT 14.4 Sec. (12.2-14.9) 04/10/20 04:57 INR 1.14 (0.87-1.13) H 04/10/20 04:57 D-Dimer 574.04 ng/mlDDU (0-234) H 04/08/20 23:06 ABG pH 7.376 pH Units (7.350-7.450) 04/09/20 20:11 ABG pCO2 40.4 mm Hg 04/09/20 20:11 ABG pO2 67.1 mm Hg (80.0-90.0) L 04/09/20 20:11 ABG HCO3 23.2 mmol/L (20.0-26.0) 04/09/20 20:11 ABG O2 Saturation 93.2 % (95.0-99.0) L 04/09/20 20:11 ABG O2 Content 19.8 (0.0-44) 04/09/20 20:11 ABG Base Excess -1.8 mmol/L (-2.0-3.0) 04/09/20 20:11 ABG Hemoglobin 15.4 gm/dl (14.0-18.0) 04/09/20 20:11 ABG Carboxyhemoglobin 1.0 % (0.0-5.0) 04/09/20 20:11 ABG Methemoglobin 0.6 % (0.0-1.5) 04/09/20 20:11 Oxyhemoglobin 91.7 % (95.0-99.0) L 04/09/20 20:11 FiO2 80 % 04/09/20 20:11 Sodium 146 mmol/L (137-145) H 04/10/20 04:57 Potassium 4.1 mmol/L (3.6-5.0) 04/10/20 04:57 Chloride 107.4 mmol/L (98-107) H 04/10/20 04:57 Carbon Dioxide 23 mmol/L (22-30) 04/10/20 04:57 Anion Gap 20 mmol/L 04/10/20 04:57 BUN 43 mg/dL (9-20) H 04/10/20 04:57 Creatinine 1.4 mg/dL (0.8-1.3) H 04/10/20 04:57 Estimated GFR > 60 ml/min 04/10/20 04:57 BUN/Creatinine Ratio 31 % 04/10/20 04:57 Glucose 137 mg/dL (75-100) H 04/10/20 04:57 Lactic Acid 1.50 mmol/L (0.7-2.0) 04/09/20 09:55 Calcium 8.4 mg/dL (8.4-10.2) 04/10/20 04:57 Ferritin 1068.0 ng/mL (30.0-300.0) H 04/08/20 23:06 Total Bilirubin 0.50 mg/dL (0.1-1.2) 04/10/20 04:57 Direct Bilirubin 0.2 mg/dL (0-0.2) 04/10/20 04:57 Indirect Bilirubin 0.3 mg/dL 04/10/20 04:57 AST 50 units/L (5-40) H 04/10/20 04:57 ALT 49 units/L (7-56) 04/10/20 04:57 Alkaline Phosphatase 99 units/L (35-129) 04/10/20 04:57 Lactate Dehydrogenase 858 units/L (91-180) H 04/08/20 23:06 C-Reactive Protein 24.30 mg/dL (0.00-1.30) H 04/08/20 23:06 Total Protein 6.5 g/dL (6.3-8.2) 04/10/20 04:57 Albumin 3.2 g/dL (3.9-5) L 04/10/20 04:57 Albumin/Globulin Ratio 1.0 % 04/10/20 04:57 Procalcitonin 0.51 ng/mL (<0.15) 04/08/20 23:06 Urine Color Yellow (Yellow) 04/09/20 Unknown Urine Turbidity Clear (Clear) 04/09/20 Unknown Urine pH 5.0 (5.0-7.0) 04/09/20 Unknown Ur Specific [place] 1.018 (1.003-1.030) 04/09/20 Unknown Urine Protein <15 mg/dl mg/dL (Negative) 04/09/20 Unknown Urine Glucose (UA) Neg mg/dL (Negative) 04/09/20 Unknown Urine Ketones Neg mg/dL (Negative) 04/09/20 Unknown Urine Blood Neg (Negative) 04/09/20 Unknown Urine Nitrite Neg (Negative) 04/09/20 Unknown Urine Bilirubin Neg (Negative) 04/09/20 Unknown Urine Urobilinogen < 2.0 mg/dL (<2.0) 04/09/20 Unknown Ur Leukocyte Esterase Neg (Negative) 04/09/20 Unknown Urine WBC (Auto) 8.0 /HPF (0.0-6.0) H 04/09/20 Unknown Urine RBC (Auto) 3.0 /HPF (0.0-6.0) 04/09/20 Unknown U Epithel Cells (Auto) 1.0 /HPF (0-13.0) 04/09/20 Unknown Hyaline Casts 2 /LPF 04/09/20 Unknown Urine Mucus Few /HPF 04/09/20 Unknown Urine Eosinophils None seen (None Seen) 04/09/20 Unknown Urine Creatinine 176.6 mg/dL (0.1-20.0) H 04/09/20 Unknown Urine Sodium 35 mmol/L 04/09/20 Unknown SARS-CoV-2 IgG Ab Nonreactive (NonReactive) 04/09/20 09:55 Blood Type O POSITIVE 04/09/20 19:43 Antibody Screen Negative 04/09/20 19:43 Microbiology: Microbiology 04/08/20 23:28 Peripheral/Venous Blood Culture - Preliminary NO GROWTH AFTER 24 HOURS 04/08/20 23:06 Peripheral/Venous Blood Culture - Preliminary NO GROWTH AFTER 24 HOURS [place]/IV: Voiding Method Urinal IV Catheter Type [Right INT / Saline Lock Antecubital] Active Medications - Current Medications Current Medications: Generic Name Dose Route Start Last Admin Trade Name Freq PRN Reason Stop Dose Admin Acetaminophen 650 mg 04/09/20 02:25 Acetaminophen 325 Mg Tab PO Q6H PRN Pain MILD(1-3)/Fever >100.5/SARKAR Dexamethasone 6 mg 04/09/20 10:00 04/09/20 13:29 Dexamethasone 4 Mg/Ml Vial IV 04/18/20 10:01 6 mg Q24HR GLORIA Administration Heparin Sodium (Porcine) 5,000 unit 04/09/20 06:00 04/10/20 06:15 Heparin 5,000 Unit/1 Ml Vial SUB-Q 5,000 unit Q8HR GLORIA Administration Azithromycin 500 mg/ Sodium 250 mls @ 250 mls/hr 04/09/20 10:00 04/09/20 13:26 Chloride IV 250 mls/hr Q24HR GLORIA Administration Protocol REMDESIVIR 100 mg/ Sodium 250 mls @ 500 mls/hr 04/10/20 21:00 Chloride IV 04/13/20 21:29 Q24HR@2100 GLORIA Magnesium Hydroxide 30 ml 04/09/20 02:25 Magnesium Hydroxide (Mom) Oral Liqd Udc PO Q4H PRN Constipation Midodrine 5 mg 04/09/20 16:00 04/09/20 18:00 Midodrine 5 Mg Tab PO Not Given TID@0800,1200,1600 [facility] Morphine Sulfate 2 mg 04/09/20 02:25 04/09/20 18:00 Morphine 2 Mg/1 Ml Inj IV 2 mg Q4H PRN Administration Pain, Moderate (4-6) Ondansetron HCl 4 mg 04/09/20 02:25 04/09/20 18:01 Ondansetron 4 Mg/2 Ml Inj IV 4 mg Q8H PRN Administration Nausea And Vomiting Sodium Chloride 10 ml 04/09/20 10:00 04/09/20 13:40 Sodium Chloride 0.9% 10 Ml Flush Syringe IV 10 ml BID GLORIA Administration Sodium Chloride 10 ml 04/09/20 02:25 Sodium Chloride 0.9% 10 Ml Flush Syringe IV PRN PRN LINE FLUSH Sodium Chloride 50 ml 04/09/20 09:30 04/09/20 13:40 Sodium Chloride 0.9% 50 Ml Ivpb IV 04/13/20 21:01 50 ml Q24HR@2100 GLORIA Administration Nutrition/Malnutrition Assess - Dietary Evaluation Nutrition/Malnutrition Findings: Nutrition Notes Start: 04/09/20 11:14 Freq: Status: Active Protocol: Document 04/09/20 11:14 EN (Rec: 04/09/20 11:16 EN [id number]) Co-Sign 04/09/20 11:14 LM Nutrition Notes Need for Assessment generated from: MD Order,Education Initial or Follow up Brief Note Current Diagnosis Acute Kidney Injury, Respiratory Failure Other Pertinent Diagnosis Sepsis, COVID-19 + Current Diet Regular Subjective/Other Information MD consult for diet education. Pt is on a regular diet. Per chart, pt had diarrhea upon admission and it has since improved. Pt is currently in ED. Nutrition Intervention Anticipated Discharge Needs: Regular diet Follow-Up By: 04/13/20 Additional Comments F/u for assessment and any diet education needs
--- NOTE | 2020-04-10 09:46 | Progress Note ---
Assessment and Plan 1. Acute kidney injury: Likely vasomotor nephropathy in the setting of hypotension and COVID-19 infection. Urine studies and Renal US ordered. Baseline renal function is unknown. Monitor renal function. Creatinine level is 1.4 from 2 from 1.9. Avoid nephrotoxic agents. Meds dosage based on GFR. 2. FEN: Metabolic acidosis, improved, monitor. Encouraged PO fluids. Monitor lytes and volume status. 3. Acute respiratory failure with hypoxia: 2/2 COVID PNA. On HFNC o2. 4. Severe sepsis, POA: 2/2 COVID PNA. Azithromycin. Followed by ID. 5. Bilateral pneumonia, POA: 2/2 COVID infection. On Abx and IV Decadron. 6. Severe COVID pneumonia: Elevated inflammatory markers. 7. Elevated LFTs: 2/2 COVID. 8. Acute diarrhea: 2/2 COVID-19 infection. Subjective: Patient was seen and examined at the bedside. Doing ok. Examination: General appearance: well-developed, appears stated age, intubated, on HFNC O2 HEENT: Pupils reacting to light Neck: Trachea midline Respiratory: coarse breath sounds heard Cardiology: regular, S1S2, no murmur Gastrointestinal: normoactive bowel sounds, no tenderness, ND Integumentary: no obvious rash Neurologic: AOX4, able to move extremities Ext: no edema Subjective Date of service: 04/10/20 Objective - Vital Signs Vital signs: Vital Signs - 12hr 04/09/20 04/09/20 04/09/20 22:00 22:25 22:31 Temperature Pulse Rate Respiratory Rate Blood Pressure 137/81 137/81 137/68 O2 Sat by Pulse 93 93 95 Oximetry 04/09/20 04/09/20 04/09/20 22:41 22:51 23:00 Temperature Pulse Rate Respiratory Rate Blood Pressure 137/68 137/68 137/68 O2 Sat by Pulse 96 92 93 Oximetry 04/10/20 04/10/20 04/10/20 03:03 05:52 08:48 Temperature 98.6 F Pulse Rate 72 Respiratory 20 Rate Blood Pressure 103/57 O2 Sat by Pulse 93 93 89 Oximetry - Lab 04/10/20 04:57 04/10/20 04:57 Most recent lab results ABG pH 7.376 pH Units (7.350-7.450) 12/11/20 20:11 ABG pCO2 40.4 mm Hg 04/09/20 20:11 ABG pO2 67.1 mm Hg (80.0-90.0) L 04/09/20 20:11 ABG HCO3 23.2 mmol/L (20.0-26.0) 04/09/20 20:11 ABG O2 Saturation 93.2 % (95.0-99.0) L 04/09/20 20:11 Calcium 8.4 mg/dL (8.4-10.2) 04/10/20 04:57 Urine Creatinine 176.6 mg/dL (0.1-20.0) H 04/09/20 Unknown Urine Sodium 35 mmol/L 04/09/20 Unknown Medications & Allergies - Medications Allergies/Adverse Reactions: Allergies cefepime Allergy (Verified 04/09/20 03:19) Hives Active Medications: Generic Name Dose Route Start Last Admin Trade Name Freq PRN Reason Stop Dose Admin Acetaminophen 650 mg 04/09/20 02:25 Acetaminophen 325 Mg Tab PO Q6H PRN Pain MILD(1-3)/Fever >100.5/SARKAR Dexamethasone 6 mg 04/09/20 10:00 04/09/20 13:29 Dexamethasone 4 Mg/Ml Vial IV 04/18/20 10:01 6 mg Q24HR GLORIA Administration Heparin Sodium (Porcine) 5,000 unit 04/09/20 06:00 04/10/20 06:15 Heparin 5,000 Unit/1 Ml Vial SUB-Q 5,000 unit Q8HR GLORIA Administration Azithromycin 500 mg/ Sodium 250 mls @ 250 mls/hr 04/09/20 10:00 04/09/20 13 :26 Chloride IV 250 mls/hr Q24HR GLORIA Administration Protocol REMDESIVIR 100 mg/ Sodium 250 mls @ 500 mls/hr 04/10/20 21:00 Chloride IV 04/13/20 21:29 Q24HR@2100 GLORIA Magnesium Hydroxide 30 ml 04/09/20 02:25 Magnesium Hydroxide (Mom) Oral Liqd Udc PO Q4H PRN Constipation Midodrine 5 mg 04/09/20 16:00 04/09/20 18:00 Midodrine 5 Mg Tab PO Not Given TID@0800,1200,1600 [facility] Morphine Sulfate 2 mg 04/09/20 02:25 04/09/20 18:00 Morphine 2 Mg/1 Ml Inj IV 2 mg Q4H PRN Administration Pain, Moderate (4-6) Ondansetron HCl 4 mg 04/09/20 02:25 04/09/20 18:01 Ondansetron 4 Mg/2 Ml Inj IV 4 mg Q8H PRN Administration Nausea And Vomiting Sodium Chloride 10 ml 04/09/20 10:00 04/09/20 13:40 Sodium Chloride 0.9% 10 Ml Flush Syringe IV 10 ml BID GLORIA Administration Sodium Chloride 10 ml 04/09/20 02:25 Sodium Chloride 0.9% 10 Ml Flush Syringe IV PRN PRN LINE FLUSH Sodium Chloride 50 ml 04/09/20 09:30 04/09/20 13:40 Sodium Chloride 0.9% 50 Ml Ivpb IV 04/13/20 21:01 50 ml Q24HR@2100 GLORIA Administration
[2020-04-10] MEDS: dexAMETHasone 4 MG/ML VIAL IV SCH (11:03)
[2020-04-10] MEDS: MIDODRINE 5 MG TAB PO SCH ×3 (11:03→18:02)
[2020-04-10] MEDS: AZITHROMYCIN 500 MG in SODIUM CHLORIDE 0.9% 250ML 250 ML IV SCH (11:06)
[2020-04-10] MEDS: guaiFENesin DM 200/20 MG ORAL LIQD 10 ML PO PRN ×2 (12:27→17:56)
[2020-04-10] MEDS: REMDESIVIR 100 MG in SODIUM CHLORIDE 0.9% 250ML 250 ML IV SCH (21:26)
[2020-04-10] MEDS: SODIUM CHLORIDE 0.9% 50 ML IVPB IV SCH (21:27)
--- NOTE | 2020-04-10 22:18 | Progress Note ---
Assessment and Plan Patient alert, awake. Resting on High flow Oxygen , FIO2 80% and O2 saturation running 90%. According to the nursing staff. No complaint of chest pain or shortness of breath. Patient afebrile and has mild leukocytosis. Chest xray 04/08/20 reported Moderate diffuse airspace disease throughout the lungs. Given this patient's history, atypical/viral pneumonia is suggested. Koenig virus antibody reported non reactive. Patient is on Zithromax, S/C Heparin, REMDESIVIR and Decodron. - Patient Problems (1) Respiratory failure Current Visit: Yes Status: Acute Qualifiers: Chronicity: acute Respiratory failure complication: hypoxia Qualified Code(s): J96.01 - Acute respiratory failure with hypoxia Plan to address problem: Patient is oh high flow O2 80%, FIO2. (2) COVID-19 Current Visit: Yes Status: Acute Plan to address problem: Koenig virus antibody reported negative. Patient is on Zithromax, S/C Heparin, REMDESIVIR and Decodron. (3) Cough Current Visit: Yes Status: Acute Plan to address problem: Robitussin DM 10 ml q 4 hours PRN for cough. (4) Fever Current Visit: Yes Status: Acute Qualifiers: Fever type: unspecified Qualified Code(s): R50.9 - Fever, unspecified Plan to address problem: Patient afebrile at this time. (5) Renal failure Current Visit: Yes Status: Acute Qualifiers: Renal failure chronicity: acute Acute renal failure type: unspecified Qualified Code(s): N17.9 - Acute kidney failure, unspecified Plan to address problem: Management as per nephrology. Subjective Date of service: 04/10/20 Interval history: Patient alert, awake. Resting on High flow Oxygen , FIO2 80% and O2 saturation running 90%. According to the nursing staff. No complaint of chest pain or shortness of breath. Patient afebrile and has mild leukocytosis. Chest xray 04/08/20 reported Moderate diffuse airspace disease throughout the lungs. Given this patient's history, atypical/viral pneumonia is suggested. Koenig virus antibody reported non reactive. Patient is on Zithromax, S/C Heparin, REMDESIVIR and Decodron. Objective Vital Signs - 12hr 04/10/20 04/10/20 12:31 21:00 Temperature 98.8 F Pulse Rate 79 Respiratory 20 Rate Blood Pressure 124/72 O2 Sat by Pulse 90 89 Oximetry Constitutional: no acute distress, alert, other (mild respiratory distress on FFM BIPAP) Eyes: non-icteric Neck: supple, no lymphadenopathy, no JVD, other (large short neck) Effort: mildly labored Ascultation: Bilateral: diminished breath sounds, rhonchi Cardiovascular: regular rate and rhythm, other (S1,S2) Gastrointestinal: normoactive bowel sounds, soft, non-tender, non-distended Integumentary: normal Extremities: no cyanosis, no edema, pulses normal Neurologic: normal mental status, non-focal exam, pupils equal and round, motor strength normal and Psychiatric: mood appropriate, affect normal CBC and BMP: 04/11/20 09:54 04/11/20 09:54 ABG, PT/INR, D-dimer: ABG ABG pH 7.376 pH Units (7.350-7.450) 04/09/20 20:11 ABG pCO2 40.4 mm Hg 04/09/20 20:11 ABG pO2 67.1 mm Hg (80.0-90.0) L 04/09/20 20:11 ABG O2 Saturation 93.2 % (95.0-99.0) L 04/09/20 20:11 PT/INR, D-dimer PT 14.4 Sec. (12.2-14.9) 04/10/20 04:57 INR 1.14 (0.87-1.13) H 04/10/20 04:57 D-Dimer 574.04 ng/mlDDU (0-234) H 04/08/20 23:06 Abnormal lab findings: Abnormal Labs 04/08/20 04/08/20 04/08/20 23:06 23:06 23:06 WBC RBC 5.59 H Hgb 17.0 H Hct 48.5 H MCHC 35 H Lymph % (Auto) 4.5 L [place] % (Auto) 7.5 H Lymph # (Auto) 0.5 L [place] # (Auto) Seg Neutrophils % 87.4 H Seg Neutrophils # 9.3 H INR D-Dimer 574.04 H ABG pO2 ABG O2 Saturation Oxyhemoglobin Sodium 136 L Chloride Carbon Dioxide BUN 31 H Creatinine 1.9 H Glucose 132 H Ferritin AST 107 H ALT 69 H Lactate Dehydrogenase C-Reactive Protein Albumin 3.5 L Urine WBC (Auto) Urine Creatinine 04/08/20 04/08/20 04/09/20 23:06 23:06 09:55 WBC RBC Hgb Hct MCHC Lymph % (Auto) [place] % (Auto) Lymph # (Auto) [place] # (Auto) Seg Neutrophils % Seg Neutrophils # INR D-Dimer ABG pO2 ABG O2 Saturation Oxyhemoglobin Sodium Chloride Carbon Dioxide 17 L BUN 33 H Creatinine 2.0 H Glucose 131 H 135 H Ferritin 1068.0 H AST ALT Lactate Dehydrogenase 858 H C-Reactive Protein 24.30 H Albumin Urine WBC (Auto) Urine Creatinine 04/09/20 04/09/20 04/09/20 20:11 Unknown Unknown WBC RBC Hgb Hct MCHC Lymph % (Auto) [place] % (Auto) Lymph # (Auto) [place] # (Auto) Seg Neutrophils % Seg Neutrophils # INR D-Dimer ABG pO2 67.1 L ABG O2 Saturation 93.2 L Oxyhemoglobin 91.7 L Sodium Chloride Carbon Dioxide BUN Creatinine Glucose Ferritin AST ALT Lactate Dehydrogenase C-Reactive Protein Albumin Urine WBC (Auto) 8.0 H Urine Creatinine 176.6 H 04/10/20 04/10/20 04/10/20 04:57 04:57 04:57 WBC 12.3 H RBC Hgb Hct MCHC Lymph % (Auto) 4.8 L [place] % (Auto) 9.5 H Lymph # (Auto) 0.6 L [place] # (Auto) 1.2 H Seg Neutrophils % 85.6 H Seg Neutrophils # 10.5 H INR 1.14 H D-Dimer ABG pO2 ABG O2 Saturation Oxyhemoglobin Sodium 146 H Chloride 107.4 H Carbon Dioxide BUN 43 H Creatinine 1.4 H Glucose 137 H Ferritin AST ALT Lactate Dehydrogenase C-Reactive Protein Albumin Urine WBC (Auto) Urine Creatinine 04/10/20 04:57 WBC RBC Hgb Hct MCHC Lymph % (Auto) [place] % (Auto) Lymph # (Auto) [place] # (Auto) Seg Neutrophils % Seg Neutrophils # INR D-Dimer ABG pO2 ABG O2 Saturation Oxyhemoglobin Sodium Chloride Carbon Dioxide BUN Creatinine Glucose Ferritin AST 50 H ALT Lactate Dehydrogenase C-Reactive Protein Albumin 3.2 L Urine WBC (Auto) Urine Creatinine Chest x-ray: report reviewed, image reviewed Additional Studies: CHEST 1 VIEW 04/08/20 INDICATION / CLINICAL INFORMATION: MAIN. COMPARISON: None available. FINDINGS: SUPPORT DEVICES: None. HEART / MEDIASTINUM: No significant abnormality. LUNGS / PLEURA: Moderate diffuse patchy and confluent consolidative opacities throughout the lungs. No significant effusion. No pneumothorax. ADDITIONAL FINDINGS: No significant additional findings. IMPRESSION: 1. Moderate diffuse airspace disease throughout the lungs. Given this patient's history, atypical/viral pneumonia is suggested. Recommend clinical correlation and continued follow-up until resolution.
[2020-04-11] MEDS ORDERED: ALPRAZolam 0.5 MG TAB PO ONE (04:25)
[2020-04-11] MEDS: HEPARIN 5,000 UNIT/1 ML VIAL SUB-Q SCH ×3 (05:10→21:48)
[2020-04-11] MEDS ORDERED: LIP THERAPY VASELINE TP PRN (08:00)
[2020-04-11] MEDS: MIDODRINE 5 MG TAB PO SCH ×3 (08:48→15:43)
--- NOTE | 2020-04-11 09:13 | Progress Note ---
Assessment and Plan Assessment and plan: Acute hypoxemic respiratory failure. Continue O2 and BiPAP as clinically indicated. Etiology secondary to sepsis and severe Covid pneumonia. Severe sepsis. Patient meets criteria given the tachypnea, leukocytosis and diagnosis of pneumonia. Patient also with organ dysfunction of acute kidney injury and respiratory failure. Etiology secondary to Covid pneumonia. Severe Covid pneumonia. Continue to monitor elevated inflammatory markers. Continue dexamethasone and remdesivir. Follow-up pro calcitonin level. Continue anticoagulation per protocol. Prone positioning when possible. Elevated LFTs. Etiology secondary to Covid/sepsis. Acute kidney injury. Etiology secondary to sepsis/ATN Acute diarrhea. 04/10/2020. Patient currently with high flow nasal cannula 40 L/min O2 with FiO2 of 100%. Procalcitonin normal at 0.51. CRP elevated at 24.3, LDH 858 and ferritin 1068 and D-dimer 574. Trend inflammatory markers today. 04/11/2020. Patient currently with high flow nasal cannula 40 L/min O2 with FiO2 of 100%. Continue dexamethasone, remdesivir and prone positioning when possible. Continue to trend inflammatory markers. History Interval history: No new issues overnight. Hospitalist Physical - Constitutional Vitals: Temp Pulse Resp BP Pulse Ox 97.7 F 71 22 149/80 95 04/11/20 03:40 04/11/20 03:40 04/11/20 03:40 04/11/20 03:40 04/11/20 08:42 General appearance: Present: no acute distress, well-nourished - EENT Eyes: Present: PERRL, EOM intact ENT: hearing intact, clear oral mucosa, dentition normal - Neck Neck: Present: supple, normal ROM - Respiratory Respiratory effort: normal Respiratory: bilateral: CTA - Cardiovascular Rhythm: regular Heart Sounds: Present: S1 & S2. Absent: gallop, rub - Extremities Extremities: no ischemia, No edema, Full ROM - Abdominal General gastrointestinal: soft, non-tender, non-distended, normal bowel sounds - Integumentary Integumentary: Present: clear, warm, dry - Neurologic Neurologic: CNII-XII intact, moves all extremities Results - Labs CBC & Chem 7: 04/10/20 04:57 04/10/20 04:57 Labs: Laboratory Last Values WBC 12.3 K/mm3 (4.5-11.0) H 04/10/20 04:57 RBC 4.94 M/mm3 (3.65-5.03) 04/10/20 04:57 Hgb 14.9 gm/dl (11.8-15.2) 04/10/20 04:57 Hct 43.6 % (35.5-45.6) 04/10/20 04:57 MCV 88 fl (84-94) 04/10/20 04:57 MCH 30 pg (28-32) 04/10/20 04:57 MCHC 34 % (32-34) 04/10/20 04:57 RDW 14.1 % (13.2-15.2) 04/10/20 04:57 Plt Count 323 K/mm3 (140-440) 04/10/20 04:57 Lymph % (Auto) 4.8 % (13.4-35.0) L 04/10/20 04:57 [place] % (Auto) 9.5 % (0.0-7.3) H 04/10/20 04:57 Eos % (Auto) 0.0 % (0.0-4.3) 04/10/20 04:57 Baso % (Auto) 0.1 % (0.0-1.8) 04/10/20 04:57 Lymph # (Auto) 0.6 K/mm3 (1.2-5.4) L 04/10/20 04:57 [place] # (Auto) 1.2 K/mm3 (0.0-0.8) H 04/10/20 04:57 Eos # (Auto) 0.0 K/mm3 (0.0-0.4) 04/10/20 04:57 Baso # (Auto) 0.0 K/mm3 (0.0-0.1) 04/10/20 04:57 Seg Neutrophils % 85.6 % (40.0-70.0) H 04/10/20 04:57 Seg Neutrophils # 10.5 K/mm3 (1.8-7.7) H 04/10/20 04:57 PT 14.4 Sec. (12.2-14.9) 04/10/20 04:57 INR 1.14 (0.87-1.13) H 04/10/20 04:57 D-Dimer 574.04 ng/mlDDU (0-234) H 04/08/20 23:06 ABG pH 7.376 pH Units (7.350-7.450) 04/09/20 20:11 ABG pCO2 40.4 mm Hg 04/09/20 20:11 ABG pO2 67.1 mm Hg (80.0-90.0) L 04/09/20 20:11 ABG HCO3 23.2 mmol/L (20.0-26.0) 04/09/20 20:11 ABG O2 Saturation 93.2 % (95.0-99.0) L 04/09/20 20:11 ABG O2 Content 19.8 (0.0-44) 04/09/20 20:11 ABG Base Excess -1.8 mmol/L (-2.0-3.0) 04/09/20 20:11 ABG Hemoglobin 15.4 gm/dl (14.0-18.0) 04/09/20 20:11 ABG Carboxyhemoglobin 1.0 % (0.0-5.0) 04/09/20 20:11 ABG Methemoglobin 0.6 % (0.0-1.5) 04/09/20 20:11 Oxyhemoglobin 91.7 % (95.0-99.0) L 04/09/20 20:11 FiO2 80 % 04/09/20 20:11 Sodium 146 mmol/L (137-145) H 04/10/20 04:57 Potassium 4.1 mmol/L (3.6-5.0) 04/10/20 04:57 Chloride 107.4 mmol/L (98-107) H 04/10/20 04:57 Carbon Dioxide 23 mmol/L (22-30) 04/10/20 04:57 Anion Gap 20 mmol/L 04/10/20 04:57 BUN 43 mg/dL (9-20) H 04/10/20 04:57 Creatinine 1.4 mg/dL (0.8-1.3) H 04/10/20 04:57 Estimated GFR > 60 ml/min 04/10/20 04:57 BUN/Creatinine Ratio 31 % 04/10/20 04:57 Glucose 137 mg/dL (75-100) H 04/10/20 04:57 Lactic Acid 1.50 mmol/L (0.7-2.0) 04/09/20 09:55 Calcium 8.4 mg/dL (8.4-10.2) 04/10/20 04:57 Ferritin 1068.0 ng/mL (30.0-300.0) H 04/08/20 23:06 Total Bilirubin 0.50 mg/dL (0.1-1.2) 04/10/20 04:57 Direct Bilirubin 0.2 mg/dL (0-0.2) 04/10/20 04:57 Indirect Bilirubin 0.3 mg/dL 04/10/20 04:57 AST 50 units/L (5-40) H 04/10/20 04:57 ALT 49 units/L (7-56) 04/10/20 04:57 Alkaline Phosphatase 99 units/L (35-129) 04/10/20 04:57 Lactate Dehydrogenase 858 units/L (91-180) H 04/08/20 23:06 C-Reactive Protein 24.30 mg/dL (0.00-1.30) H 04/08/20 23:06 Total Protein 6.5 g/dL (6.3-8.2) 04/10/20 04:57 Albumin 3.2 g/dL (3.9-5) L 04/10/20 04:57 Albumin/Globulin Ratio 1.0 % 04/10/20 04:57 Procalcitonin 0.51 ng/mL (<0.15) 04/08/20 23:06 Urine Color Yellow (Yellow) 04/09/20 Unknown Urine Turbidity Clear (Clear) 04/09/20 Unknown Urine pH 5.0 (5.0-7.0) 04/09/20 Unknown Ur Specific [place] 1.018 (1.003-1.030) 04/09/20 Unknown Urine Protein <15 mg/dl mg/dL (Negative) 04/09/20 Unknown Urine Glucose (UA) Neg mg/dL (Negative) 04/09/20 Unknown Urine Ketones Neg mg/dL (Negative) 04/09/20 Unknown Urine Blood Neg (Negative) 04/09/20 Unknown Urine Nitrite Neg (Negative) 04/09/20 Unknown Urine Bilirubin Neg (Negative) 04/09/20 Unknown Urine Urobilinogen < 2.0 mg/dL (<2.0) 04/09/20 Unknown Ur Leukocyte Esterase Neg (Negative) 04/09/20 Unknown Urine WBC (Auto) 8.0 /HPF (0.0-6.0) H 04/09/20 Unknown Urine RBC (Auto) 3.0 /HPF (0.0-6.0) 04/09/20 Unknown U Epithel Cells (Auto) 1.0 /HPF (0-13.0) 04/09/20 Unknown Hyaline Casts 2 /LPF 04/09/20 Unknown Urine Mucus Few /HPF 04/09/20 Unknown Urine Eosinophils None seen (None Seen) 04/09/20 Unknown Urine Creatinine 176.6 mg/dL (0.1-20.0) H 04/09/20 Unknown Urine Sodium 35 mmol/L 04/09/20 Unknown SARS-CoV-2 IgG Ab Nonreactive (NonReactive) 04/09/20 09:55 Blood Type O POSITIVE 04/09/20 19:43 Antibody Screen Negative 04/09/20 19:43 Microbiology: Microbiology 04/08/20 23:28 Peripheral/Venous Blood Culture - Preliminary NO GROWTH AFTER 48 HOURS 04/08/20 23:06 Peripheral/Venous Blood Culture - Preliminary NO GROWTH AFTER 48 HOURS [place]/IV: Voiding Method Urinal IV Catheter Type [Right INT / Saline Lock Antecubital] Active Medications - Current Medications Current Medications: Generic Name Dose Route Start Last Admin Trade Name Freq PRN Reason Stop Dose Admin Acetaminophen 650 mg 04/09/20 02:25 Acetaminophen 325 Mg Tab PO Q6H PRN Pain MILD(1-3)/Fever >100.5/SARKAR Dexamethasone 6 mg 04/09/20 10:00 04/10/20 11:03 Dexamethasone 4 Mg/Ml Vial IV 04/18/20 10:01 6 mg Q24HR GLORIA Administration Guaifenesin 10 ml 04/10/20 13:00 04/10/20 17:56 Guaifenesin Dm 200/20 Mg Oral Liqd 10 Ml PO 10 ml Q4H PRN Administration Cough Heparin Sodium (Porcine) 5,000 unit 04/09/20 06:00 04/11/20 05:10 Heparin 5,000 Unit/1 Ml Vial SUB-Q 5,000 unit Q8HR GLORIA Administration Hydrophilic Ointment 1 applic 04/11/20 08:00 Lip Therapy Vaseline TP DIRECT PRN Dry Lips Azithromycin 500 mg/ Sodium 250 mls @ 250 mls/hr 04/09/20 10:00 04/10/20 11:06 Chloride IV 250 mls/hr Q24HR GLORIA Administration Protocol REMDESIVIR 100 mg/ Sodium 250 mls @ 500 mls/hr 04/10/20 21:00 04/10/20 21:26 Chloride IV 04/13/20 21:29 500 mls/hr Q24HR@2100 GLORIA Administration Magnesium Hydroxide 30 ml 04/09/20 02:25 Magnesium Hydroxide (Mom) Oral Liqd Udc PO Q4H PRN Constipation Midodrine 5 mg 04/09/20 16:00 04/11/20 08:48 Midodrine 5 Mg Tab PO 5 mg TID@0800,1200,1600 GLORIA Administration Morphine Sulfate 2 mg 04/09/20 02:25 04/09/20 18:00 Morphine 2 Mg/1 Ml Inj IV 2 mg Q4H PRN Administration Pain, Moderate (4-6) Ondansetron HCl 4 mg 04/09/20 02:25 04/09/20 18:01 Ondansetron 4 Mg/2 Ml Inj IV 4 mg Q8H PRN Administration Nausea And Vomiting Sodium Chloride 10 ml 04/09/20 10:00 04/10/20 21:28 Sodium Chloride 0.9% 10 Ml Flush Syringe IV 10 ml BID GLORIA Administration Sodium Chloride 10 ml 04/09/20 02:25 Sodium Chloride 0.9% 10 Ml Flush Syringe IV PRN PRN LINE FLUSH Sodium Chloride 50 ml 04/09/20 09:30 04/10/20 21:27 Sodium Chloride 0.9% 50 Ml Ivpb IV 04/13/20 21:01 50 ml Q24HR@2100 GLORIA Administration Nutrition/Malnutrition Assess - Dietary Evaluation Nutrition/Malnutrition Findings: Nutrition Notes Start: 04/09/20 11:14 Freq: Status: Active Protocol: Document 04/09/20 11:14 EN (Rec: 04/09/20 11:16 EN [id number]) Co-Sign 04/09/20 11:14 LM Nutrition Notes Need for Assessment generated from: MD Order,Education Initial or Follow up Brief Note Current Diagnosis Acute Kidney Injury, Respiratory Failure Other Pertinent Diagnosis Sepsis, COVID-19 + Current Diet Regular Subjective/Other Information MD consult for diet education. Pt is on a regular diet. Per chart, pt had diarrhea upon admission and it has since improved. Pt is currently in ED. Nutrition Intervention Anticipated Discharge Needs: Regular diet Follow-Up By: 04/13/20 Additional Comments F/u for assessment and any diet education needs
--- NOTE | 2020-04-11 10:34 | Progress Note ---
Assessment and Plan 1. Acute kidney injury: Likely vasomotor nephropathy in the setting of hypotension and COVID-19 infection. Urine studies and Renal US ordered. Baseline renal function is unknown. Monitor renal function. Creatinine level is 1.1 from 1.4 from 2 from 1.9. Avoid nephrotoxic agents. Meds dosage based on GFR. 2. FEN: Metabolic acidosis, improved, monitor. Encouraged PO fluids. Monitor lytes and volume status. 3. Acute respiratory failure with hypoxia: 2/2 COVID PNA. On HFNC O2. 4. Severe sepsis, POA: 2/2 COVID PNA. Azithromycin. Followed by ID. 5. Bilateral pneumonia, POA: 2/2 COVID infection. On Abx and IV Decadron. 6. Severe COVID pneumonia: Remdesivir. Elevated inflammatory markers. 7. Elevated LFTs: 2/2 COVID. 8. Acute diarrhea: 2/2 COVID-19 infection. Subjective: Patient was seen and examined at the bedside. Doing ok. Examination: General appearance: well-developed, appears stated age, on HFNC O2 HEENT: Pupils reacting to light Neck: Trachea midline Respiratory: coarse breath sounds heard Cardiology: regular, S1S2, no murmur Gastrointestinal: normoactive bowel sounds, no tenderness, ND Integumentary: no obvious rash Neurologic: AOX4, able to move extremities Ext: no edema Subjective Date of service: 04/11/20 Objective - Vital Signs Vital signs: Vital Signs - 12hr 04/10/20 04/10/20 04/11/20 23:00 23:13 01:00 Temperature 98.2 F Pulse Rate 72 Respiratory 20 22 20 Rate Blood Pressure 125/72 O2 Sat by Pulse 88 Oximetry 04/11/20 04/11/20 04/11/20 03:00 03:40 08:05 Temperature 97.7 F Pulse Rate 65 71 Respiratory 32 H 22 Rate Blood Pressure 149/80 O2 Sat by Pulse 97 71 L 93 Oximetry 04/11/20 08:42 Temperature Pulse Rate Respiratory Rate Blood Pressure O2 Sat by Pulse 95 Oximetry - Lab 04/11/20 09:54 04/11/20 09:54 Most recent lab results ABG pH 7.376 pH Units (7.350-7.450) 04/09/20 20:11 ABG pCO2 40.4 mm Hg 04/09/20 20:11 ABG pO2 67.1 mm Hg (80.0-90.0) L 04/09/20 20:11 ABG HCO3 23.2 mmol/L (20.0-26.0) 04/09/20 20:11 ABG O2 Saturation 93.2 % (95.0-99.0) L 04/09/20 20:11 Calcium 8.4 mg/dL (8.4-10.2) 04/10/20 04:57 Urine Creatinine 176.6 mg/dL (0.1-20.0) H 04/09/20 Unknown Urine Sodium 35 mmol/L 04/09/20 Unknown Medications & Allergies - Medications Allergies/Adverse Reactions: Allergies cefepime Allergy (Verified 04/09/20 03:19) Hives Active Medications: Generic Name Dose Route Start Last Admin Trade Name Freq PRN Reason Stop Dose Admin Acetaminophen 650 mg 04/09/20 02:25 Acetaminophen 325 Mg Tab PO Q6H PRN Pain MILD(1-3)/Fever >100.5/SARKAR Dexamethasone 6 mg 04/09/20 10:00 04/10/20 11:03 Dexamethasone 4 Mg/Ml Vial IV 04/18/20 10:01 6 mg Q24HR GLORIA Administration Guaifenesin 10 ml 04/10/20 13:00 04/10/20 17:56 Guaifenesin Dm 200/20 Mg Oral Liqd 10 Ml PO 10 ml Q4H PRN Administration Cough Heparin Sodium (Porcine) 5,000 unit 04/09/20 06:00 04/11/20 05:10 Heparin 5,000 Unit/1 Ml Vial SUB-Q 5,000 unit Q8HR GLORIA Administration Hydrophilic Ointment 1 applic 04/11/20 08:00 Lip Therapy Vaseline TP DIRECT PRN Dry Lips Azithromycin 500 mg/ Sodium 250 mls @ 250 mls/hr 04/09/20 10:00 04/10/20 11:06 Chloride IV 250 mls/hr Q24HR GLORIA Administration Protocol REMDESIVIR 100 mg/ Sodium 250 mls @ 500 mls/hr 04/10/20 21:00 04/10/20 21:26 Chloride IV 04/13/20 21:29 500 mls/hr Q24HR@2100 GLORIA Administration Magnesium Hydroxide 30 ml 04/09/20 02:25 Magnesium Hydroxide (Mom) Oral Liqd Udc PO Q4H PRN Constipation Midodrine 5 mg 04/09/20 16:00 04/11/20 08:48 Midodrine 5 Mg Tab PO 5 mg TID@0800,1200,1600 GLORIA Administration Morphine Sulfate 2 mg 04/09/20 02:25 04/09/20 18:00 Morphine 2 Mg/1 Ml Inj IV 2 mg Q4H PRN Administration Pain, Moderate (4-6) Ondansetron HCl 4 mg 04/09/20 02:25 04/09/20 18:01 Ondansetron 4 Mg/2 Ml Inj IV 4 mg Q8H PRN Administration Nausea And Vomiting Sodium Chloride 10 ml 04/09/20 10:00 04/10/20 21:28 Sodium Chloride 0.9% 10 Ml Flush Syringe IV 10 ml BID GLORIA Administration Sodium Chloride 10 ml 04/09/20 02:25 Sodium Chloride 0.9% 10 Ml Flush Syringe IV PRN PRN LINE FLUSH Sodium Chloride 50 ml 04/09/20 09:30 04/10/20 21:27 Sodium Chloride 0.9% 50 Ml Ivpb IV 04/13/20 21:01 50 ml Q24HR@2100 GLORIA Administration
[2020-04-11 11:06] LABS: BUN/Creatinine Ratio 30; Blood Urea Nitrogen 33 mg/dL (9-20); Calcium 8.4 mg/dL (8.4-10.2); Hemolysis Index 35
[2020-04-11 11:10] LABS: Bilirubin,Direct 0.2 mg/dL (0-0.2)
[2020-04-11 11:27] LABS: Hematocrit 46.1 % (35.5-45.6); Hemoglobin 15.4 gm/dl (11.8-15.2); Mean Corpuscular HGB Conc 34 % (32-34); Mean Corpuscular Volume 88 fl (84-94); Platelet Count 310 K/mm3 (140-440); Red Blood Count 5.26 M/mm3 (3.65-5.03); Red Cell Distribution Width 14.5 % (13.2-15.2)
[2020-04-11] MEDS: AZITHROMYCIN 500 MG in SODIUM CHLORIDE 0.9% 250ML 250 ML IV SCH (11:31)
[2020-04-11] MEDS: dexAMETHasone 4 MG/ML VIAL IV SCH (11:31)
[2020-04-11] MEDS: guaiFENesin DM 200/20 MG ORAL LIQD 10 ML PO PRN ×3 (11:41→22:34)
[2020-04-11 12:25] LABS: Total Cells Counted 100
[2020-04-11 12:26] LABS: Platelet Estimate Consistent w Auto; RBC Morphology Normal
--- NOTE | 2020-04-11 21:47 | Progress Note ---
Assessment and Plan Patient alert, awake. Resting on High flow Oxygen , FIO2 100% and O2 saturation running 93%. According to the nursing staff. No complaint of chest pain or shortness of breath. Patient afebrile and has mild leukocytosis. Chest xray 04/08/20 reported Moderate diffuse airspace disease throughout the lungs. Given this patient's history, atypical/viral pneumonia is suggested. Koenig virus antibody reported non reactive. Patient is on Zithromax, S/C Heparin, REMDESIVIR and Decodron. - Patient Problems (1) Respiratory failure Current Visit: Yes Status: Acute Qualifiers: Chronicity: acute Respiratory failure complication: hypoxia Qualified Code(s): J96.01 - Acute respiratory failure with hypoxia Plan to address problem: Patient is oh high flow O2 100%, FIO2. (2) COVID-19 Current Visit: Yes Status: Acute Plan to address problem: Koenig virus antibody reported negative. Patient is on Zithromax, S/C Heparin, REMDESIVIR and Decodron. (3) Cough Current Visit: Yes Status: Acute Plan to address problem: Robitussin DM 10 ml q 4 hours PRN for cough. (4) Fever Current Visit: Yes Status: Acute Qualifiers: Fever type: unspecified Qualified Code(s): R50.9 - Fever, unspecified Plan to address problem: Patient running low grade fever at this time. (5) Renal failure Current Visit: Yes Status: Acute Qualifiers: Renal failure chronicity: acute Acute renal failure type: unspecified Qualified Code(s): N17.9 - Acute kidney failure, unspecified Plan to address problem: Management as per nephrology. Subjective Date of service: 04/11/20 Interval history: Patient alert, awake. Resting on High flow Oxygen , FIO2 100% and O2 saturation running 93%. According to the nursing staff. No complaint of chest pain or shortness of breath. Patient afebrile and has mild leukocytosis. Chest xray 04/08/20 reported Moderate diffuse airspace disease throughout the lungs. Given this patient's history, atypical/viral pneumonia is suggested. Koenig virus antibody reported non reactive. Patient is on Zithromax, S/C Heparin, REMDESIVIR and Decodron. Objective Vital Signs - 12hr 04/11/20 04/11/20 15:00 16:17 Temperature 99.5 F Pulse Rate 63 Respiratory 28 H Rate Blood Pressure 118/63 O2 Sat by Pulse 90 91 Oximetry Constitutional: no acute distress, alert, other (mild respiratory distress on FFM BIPAP) Eyes: non-icteric Neck: supple, no lymphadenopathy, no JVD, other (large short neck) Effort: mildly labored Ascultation: Bilateral: diminished breath sounds, rhonchi Cardiovascular: regular rate and rhythm, other (S1,S2) Gastrointestinal: normoactive bowel sounds, soft, non-tender, non-distended Integumentary: normal Extremities: no cyanosis, no edema, pulses normal Neurologic: normal mental status, non-focal exam, pupils equal and round, motor strength normal and Psychiatric: mood appropriate, affect normal CBC and BMP: 04/11/20 09:54 04/11/20 09:54 ABG, PT/INR, D-dimer: ABG ABG pH 7.376 pH Units (7.350-7.450) 04/09/20 20:11 ABG pCO2 40.4 mm Hg 04/09/20 20:11 ABG pO2 67.1 mm Hg (80.0-90.0) L 04/09/20 20:11 ABG O2 Saturation 93.2 % (95.0-99.0) L 04/09/20 20:11 PT/INR, D-dimer PT 14.4 Sec. (12.2-14.9) 04/10/20 04:57 INR 1.14 (0.87-1.13) H 04/10/20 04:57 D-Dimer > 76137 ng/mlDDU (0-234) H 04/11/20 09:54 Abnormal lab findings: Abnormal Labs 04/08/20 04/08/20 04/08/20 23:06 23:06 23:06 WBC RBC 5.59 H Hgb 17.0 H Hct 48.5 H MCHC 35 H Lymph % (Auto) 4.5 L [place] % (Auto) 7.5 H Lymph # (Auto) 0.5 L [place] # (Auto) Seg Neutrophils % 87.4 H Seg Neuts % (Manual) Lymphocytes % (Manual) Nucleated RBC % Seg Neutrophils # 9.3 H Seg Neutrophils # Man Lymphocytes # (Manual) INR D-Dimer 574.04 H ABG pO2 ABG O2 Saturation Oxyhemoglobin Sodium 136 L Chloride Carbon Dioxide BUN 31 H Creatinine 1.9 H Glucose 132 H Ferritin AST 107 H ALT 69 H Alkaline Phosphatase Lactate Dehydrogenase C-Reactive Protein Albumin 3.5 L Urine WBC (Auto) Urine Creatinine 04/08/20 04/08/20 04/09/20 23:06 23:06 09:55 WBC RBC Hgb Hct MCHC Lymph % (Auto) [place] % (Auto) Lymph # (Auto) [place] # (Auto) Seg Neutrophils % Seg Neuts % (Manual) Lymphocytes % (Manual) Nucleated RBC % Seg Neutrophils # Seg Neutrophils # Man Lymphocytes # (Manual) INR D-Dimer ABG pO2 ABG O2 Saturation Oxyhemoglobin Sodium Chloride Carbon Dioxide 17 L BUN 33 H Creatinine 2.0 H Glucose 131 H 135 H Ferritin 1068.0 H AST ALT Alkaline Phosphatase Lactate Dehydrogenase 858 H C-Reactive Protein 24.30 H Albumin Urine WBC (Auto) Urine Creatinine 04/09/20 04/09/20 04/09/20 20:11 Unknown Unknown WBC RBC Hgb Hct MCHC Lymph % (Auto) [place] % (Auto) Lymph # (Auto) [place] # (Auto) Seg Neutrophils % Seg Neuts % (Manual) Lymphocytes % (Manual) Nucleated RBC % Seg Neutrophils # Seg Neutrophils # Man Lymphocytes # (Manual) INR D-Dimer ABG pO2 67.1 L ABG O2 Saturation 93.2 L Oxyhemoglobin 91.7 L Sodium Chloride Carbon Dioxide BUN Creatinine Glucose Ferritin AST ALT Alkaline Phosphatase Lactate Dehydrogenase C-Reactive Protein Albumin Urine WBC (Auto) 8.0 H Urine Creatinine 176.6 H 04/10/20 04/10/20 04/10/20 04:57 04:57 04:57 WBC 12.3 H RBC Hgb Hct MCHC Lymph % (Auto) 4.8 L [place] % (Auto) 9.5 H Lymph # (Auto) 0.6 L [place] # (Auto) 1.2 H Seg Neutrophils % 85.6 H Seg Neuts % (Manual) Lymphocytes % (Manual) Nucleated RBC % Seg Neutrophils # 10.5 H Seg Neutrophils # Man Lymphocytes # (Manual) INR 1.14 H D-Dimer ABG pO2 ABG O2 Saturation Oxyhemoglobin Sodium 146 H Chloride 107.4 H Carbon Dioxide BUN 43 H Creatinine 1.4 H Glucose 137 H Ferritin AST ALT Alkaline Phosphatase Lactate Dehydrogenase C-Reactive Protein Albumin Urine WBC (Auto) Urine Creatinine 04/10/20 04/11/20 04/11/20 04:57 09:54 09:54 WBC RBC Hgb Hct MCHC Lymph % (Auto) [place] % (Auto) Lymph # (Auto) [place] # (Auto) Seg Neutrophils % Seg Neuts % (Manual) Lymphocytes % (Manual) Nucleated RBC % Seg Neutrophils # Seg Neutrophils # Man Lymphocytes # (Manual) INR D-Dimer > 15764 H ABG pO2 ABG O2 Saturation Oxyhemoglobin Sodium Chloride Carbon Dioxide BUN Creatinine Glucose Ferritin AST 50 H 76 H ALT 89 H Alkaline Phosphatase 134 H Lactate Dehydrogenase C-Reactive Protein Albumin 3.2 L 3.0 L Urine WBC (Auto) Urine Creatinine 04/11/20 04/11/20 04/11/20 09:54 09:54 09:54 WBC 11.8 H RBC 5.26 H Hgb 15.4 H Hct 46.1 H MCHC Lymph % (Auto) [place] % (Auto) Lymph # (Auto) [place] # (Auto) Seg Neutrophils % Seg Neuts % (Manual) 91.0 H Lymphocytes % (Manual) 6.0 L Nucleated RBC % 1.0 H Seg Neutrophils # Seg Neutrophils # Man 10.7 H Lymphocytes # (Manual) 0.7 L INR D-Dimer ABG pO2 ABG O2 Saturation Oxyhemoglobin Sodium Chloride 107.1 H Carbon Dioxide BUN 33 H Creatinine Glucose 111 H Ferritin 926.3 H AST ALT Alkaline Phosphatase Lactate Dehydrogenase 815 H C-Reactive Protein 5.70 H Albumin Urine WBC (Auto) Urine Creatinine
[2020-04-11] MEDS: REMDESIVIR 100 MG in SODIUM CHLORIDE 0.9% 250ML 250 ML IV SCH (21:48)
[2020-04-11] MEDS: SODIUM CHLORIDE 0.9% 50 ML IVPB IV SCH (21:49)
[2020-04-12] MEDS: HEPARIN 5,000 UNIT/1 ML VIAL SUB-Q SCH (05:32)
[2020-04-12] MEDS: guaiFENesin DM 200/20 MG ORAL LIQD 10 ML PO PRN ×2 (05:32→23:28)
[2020-04-12] MEDS: MIDODRINE 5 MG TAB PO SCH ×3 (08:29→17:22)
--- NOTE | 2020-04-12 08:44 | Progress Note ---
Assessment and Plan 1. Acute kidney injury: Likely vasomotor nephropathy in the setting of hypotension and COVID-19 infection. Urine studies and Renal US ordered. Monitor renal function. Creatinine level is 0.9 from 1.1 from 1.4 from 2 from 1.9. Avoid nephrotoxic agents. Meds dosage based on GFR. 2. FEN: Metabolic acidosis, improved, monitor. Encouraged PO fluids. Monitor lytes and volume status. 3. Acute respiratory failure with hypoxia: 2/2 COVID PNA. On HFNC O2. 4. Severe sepsis, POA: 2/2 COVID PNA. Followed by ID. 5. Severe COVID pneumonia: On IV Decadron and Remdesivir. Elevated inflammatory markers. 6. Elevated LFTs: 2/2 COVID. Subjective: Patient was seen and examined at the bedside. Doing ok. Examination: General appearance: well-developed, appears stated age, on HFNC O2 HEENT: Pupils reacting to light Neck: Trachea midline Respiratory: ctab Cardiology: regular, S1S2, no murmur Gastrointestinal: normoactive bowel sounds, no tenderness, ND Integumentary: no obvious rash Neurologic: AOX4, able to move extremities Ext: no edema Subjective Date of service: 04/12/20 Objective - Vital Signs Vital signs: Vital Signs - 12hr 04/11/20 04/11/20 04/12/20 21:30 22:22 03:47 Temperature 98.9 F Pulse Rate 70 Respiratory 18 Rate Blood Pressure 145/87 O2 Sat by Pulse 92 93 96 Oximetry 04/12/20 04:47 Temperature 99.3 F Pulse Rate 68 Respiratory 18 Rate Blood Pressure 138/83 O2 Sat by Pulse 91 Oximetry - Lab 04/12/20 08:17 04/12/20 08:17 Most recent lab results ABG pH 7.376 pH Units (7.350-7.450) 04/09/20 20:11 ABG pCO2 40.4 mm Hg 04/09/20 20:11 ABG pO2 67.1 mm Hg (80.0-90.0) L 04/09/20 20:11 ABG HCO3 23.2 mmol/L (20.0-26.0) 04/09/20 20:11 ABG O2 Saturation 93.2 % (95.0-99.0) L 04/09/20 20:11 Calcium 8.4 mg/dL (8.4-10.2) 04/11/20 09:54 Urine Creatinine 176.6 mg/dL (0.1-20.0) H 04/09/20 Unknown Urine Sodium 35 mmol/L 04/09/20 Unknown Medications & Allergies - Medications Allergies/Adverse Reactions: Allergies cefepime Allergy (Verified 04/09/20 03:19) Hives Active Medications: Generic Name Dose Route Start Last Admin Trade Name Freq PRN Reason Stop Dose Admin Acetaminophen 650 mg 04/09/20 02:25 Acetaminophen 325 Mg Tab PO Q6H PRN Pain MILD(1-3)/Fever >100.5/SARKAR Dexamethasone 6 mg 04/09/20 10:00 04/11/20 11:31 Dexamethasone 4 Mg/Ml Vial IV 04/18/20 10:01 6 mg Q24HR GLORIA Administration Guaifenesin 10 ml 04/10/20 13:00 04/12/20 05:32 Guaifenesin Dm 200/20 Mg Oral Liqd 10 Ml PO 10 ml Q4H PRN Administration Cough Heparin Sodium (Porcine) 5,000 unit 04/09/20 06:00 04/12/20 05:32 Heparin 5,000 Unit/1 Ml Vial SUB-Q 5,000 unit Q8HR GLORIA Administration Hydrophilic Ointment 1 applic 04/11/20 08:00 Lip Therapy Vaseline TP DIRECT PRN Dry Lips Azithromycin 500 mg/ Sodium 250 mls @ 250 mls/hr 04/09/20 10:00 04/11/20 11:31 Chloride IV 250 mls/hr Q24HR GLORIA Administration Protocol REMDESIVIR 100 mg/ Sodium 250 mls @ 500 mls/hr 04/10/20 21:00 04/11/20 21:48 Chloride IV 04/13/20 21:29 500 mls/hr Q24HR@2100 GLORIA Administration Magnesium Hydroxide 30 ml 04/09/20 02:25 Magnesium Hydroxide (Mom) Oral Liqd Udc PO Q4H PRN Constipation Midodrine 5 mg 04/09/20 16:00 04/12/20 08:29 Midodrine 5 Mg Tab PO 5 mg TID@0800,1200,1600 GLORIA Administration Morphine Sulfate 2 mg 04/09/20 02:25 04/09/20 18:00 Morphine 2 Mg/1 Ml Inj IV 2 mg Q4H PRN Administration Pain, Moderate (4-6) Ondansetron HCl 4 mg 04/09/20 02:25 04/09/20 18:01 Ondansetron 4 Mg/2 Ml Inj IV 4 mg Q8H PRN Administration Nausea And Vomiting Sodium Chloride 10 ml 04/09/20 10:00 04/11/20 21:49 Sodium Chloride 0.9% 10 Ml Flush Syringe IV 10 ml BID GLORIA Administration Sodium Chloride 10 ml 04/09/20 02:25 Sodium Chloride 0.9% 10 Ml Flush Syringe IV PRN PRN LINE FLUSH Sodium Chloride 50 ml 04/09/20 09:30 04/11/20 21:49 Sodium Chloride 0.9% 50 Ml Ivpb IV 04/13/20 21:01 50 ml Q24HR@2100 GLORIA Administration
[2020-04-12 08:57] LABS: Hematocrit 44.7 % (35.5-45.6); Hemoglobin 15.2 gm/dl (11.8-15.2); Mean Corpuscular HGB Conc 34 % (32-34); Mean Corpuscular Volume 88 fl (84-94); Platelet Count 279 K/mm3 (140-440); Red Blood Count 5.07 M/mm3 (3.65-5.03); Red Cell Distribution Width 14.3 % (13.2-15.2)
[2020-04-12 09:08] LABS: BUN/Creatinine Ratio 28; Blood Urea Nitrogen 25 mg/dL (9-20); Calcium 8.4 mg/dL (8.4-10.2); Hemolysis Index 4
--- NOTE | 2020-04-12 09:12 | Progress Note ---
Assessment and Plan Cultures: Blood culture no growth today SARS CoV2 PCR positive as an outpatient SARS Covid 2 IgG nonreactive Assessment: 52 years old male with history of with no significant past medical history, admitted on 04/08/2020 secondary to 5-day history of generalized malaise, cough, fever, shortness of breath, loss of smell and taste: #Severe sepsis: Present on admission with hypoxia, hypotension, RICKY and elevated LFTs. Likely due to bilateral pneumonia. #Severe COVID pneumonia: Noted elevated inflammatory markers. Chest x-ray with bilateral airspace disease. #Acute hypoxemic respiratory failure: Initial O2 sats dropped to 75%. Not better. Remains on high flow nasal cannula 100%. #Elevated LFTs: from COVID #RICKY: from COVID, improving #Acute diarrhea: For COVID-19 infection. #Very elevated D-dimer: Should rule out DVT/PE #Cefepime allergy: On admission patient developed hives Recommendations: -Pulmonary on board -Obtain chest CTA and venous ultrasound rule out DVT-very high D-dimer -Continue dexamethasone 6 mg IV/PO daily for 10 days -increase to 6 mg twice daily -Continue remdesivir total 5 days D3 of 5 -SARS-CoV-2 IgG negative, patient may benefit from Covid convalescent plasma -Monitor inflammatory markers - ferritin, Ddimer, CRP, LDH-recheck tomorrow -Continue azithromycin total 5 days -Monitor liver function test on Remdesivir -Continue anticoagulation per System Protocol -Prone positioning as possible All laboratory, cultures and imaging were reviewed. High mortality Will follow Ave Morales MD Infectious Diseases Strategy Execution Consultant [facility] M [phone] Subjective Date of service: 04/12/20 Principal diagnosis: COVID-19 Interval history: Remains on high flow nasal cannula 100%, no fever Objective - Exam Narrative Exam: Physical Exam: reviewed ED and hospitalist notes. Deferred to prevent COVID-19 transmission. - Constitutional Vitals: Vital Signs Temp Pulse Resp BP Pulse Ox 99.3 F 68 18 138/83 91 04/12/20 04:47 04/12/20 04:47 04/12/20 04:47 04/12/20 04:47 04/12/20 04:47 Temperature -Last 24 Hours Temperature 99.3 F Temperature 98.9 F Temperature 99.5 F - Labs CBC & Chem 7: 04/12/20 08:17 04/12/20 08:17 Labs: Abnormal lab results 04/11/20 04/11/20 04/11/20 Range/Units 09:54 09:54 09:54 WBC (4.5-11.0) K/mm3 RBC (3.65-5.03) M/mm3 Hgb (11.8-15.2) gm/dl Hct (35.5-45.6) % Seg Neuts % (Manual) (40.0-70.0) % Lymphocytes % (Manual) (13.4-35.0) % Nucleated RBC % (0.0-0.9) % Seg Neutrophils # Man (1.8-7.7) K/mm3 Lymphocytes # (Manual) (1.2-5.4) K/mm3 D-Dimer > 76773 H (0-234) ng/mlDDU Chloride 107.1 H (98-107) mmol/L Carbon Dioxide (22-30) mmol/L BUN 33 H (9-20) mg/dL Glucose 111 H (75-100) mg/dL Ferritin (30.0-300.0) ng/mL AST 76 H (5-40) units/L ALT 89 H (7-56) units/L Alkaline Phosphatase 134 H (35-129) units/L Lactate Dehydrogenase 815 H (91-180) units/L C-Reactive Protein 5.70 H (0.00-1.30) mg/dL Albumin 3.0 L (3.9-5) g/dL 04/11/20 04/11/20 04/12/20 Range/Units 09:54 09:54 08:17 WBC 11.8 H (4.5-11.0) K/mm3 RBC 5.26 H (3.65-5.03) M/mm3 Hgb 15.4 H (11.8-15.2) gm/dl Hct 46.1 H (35.5-45.6) % Seg Neuts % (Manual) 91.0 H (40.0-70.0) % Lymphocytes % (Manual) 6.0 L (13.4-35.0) % Nucleated RBC % 1.0 H (0.0-0.9) % Seg Neutrophils # Man 10.7 H (1.8-7.7) K/mm3 Lymphocytes # (Manual) 0.7 L (1.2-5.4) K/mm3 D-Dimer (0-234) ng/mlDDU Chloride (98-107) mmol/L Carbon Dioxide 31 H (22-30) mmol/L BUN 25 H (9-20) mg/dL Glucose (75-100) mg/dL Ferritin 926.3 H (30.0-300.0) ng/mL AST (5-40) units/L ALT (7-56) units/L Alkaline Phosphatase (35-129) units/L Lactate Dehydrogenase (91-180) units/L C-Reactive Protein (0.00-1.30) mg/dL Albumin (3.9-5) g/dL
[2020-04-12 09:13] LABS: Albumin 3.3 g/dL (3.9-5); Bilirubin,Direct 0.3 mg/dL (0-0.2)
[2020-04-12] MEDS: AZITHROMYCIN 500 MG in SODIUM CHLORIDE 0.9% 250ML 250 ML IV SCH (11:07)
[2020-04-12] MEDS: ENOXAPARIN 100 MG/1 ML INJ SUB-Q SCH ×2 (11:08→23:28)
[2020-04-12] MEDS: dexAMETHasone 4 MG/ML VIAL IV SCH (11:08)
[2020-04-12 12:55] LABS: Band Neutrophils # (Manual) 0.3 K/mm3; Myelocytes # (Manual) 0.1 K/mm3; Platelet Estimate Consistent w Auto; RBC Morphology Normal; Total Cells Counted 100
--- NOTE | 2020-04-12 14:30 | Progress Note ---
Assessment and Plan Patient alert, awake. Resting on High flow Oxygen ,Vapotherm , FIO2 100% and O2 saturation running 93%. No complaint of chest pain or shortness of breath at rest.. Patient afebrile and has mild leukocytosis. Chest xray 04/08/20 reported Moderate diffuse airspace disease throughout the lungs. Given this patient's history, atypical/viral pneumonia is suggested. Koenig virus antibody reported non reactive. Inflammatory markers Ferritin 926.3 LDH 815 Patient has CTA of chest 04/12/20 Small acute, occlusive bilateral PTE as above. Extensive bilateral airspace disease. Venous doppler studies of legs results pending. Patient is on S/C Lovenox 100 mg S/C q 12 hours, REMDESIVIR and Decodron. - Patient Problems (1) Respiratory failure Current Visit: Yes Status: Acute Qualifiers: Chronicity: acute Respiratory failure complication: hypoxia Qualified Code(s): J96.01 - Acute respiratory failure with hypoxia Plan to address problem: Patient is oh high flow O2 100%, FIO2. (2) COVID-19 Current Visit: Yes Status: Acute Plan to address problem: Koenig virus antibody reported negative. Patient is on S/C Heparin, REMDESIVIR and Decodron. (3) Pulmonary embolism Current Visit: Yes Status: Acute Plan to address problem: Patient is on Lovenox 100 mg S/C q 12 hours. (4) Bilateral pneumonia Current Visit: Yes Status: Acute Plan to address problem: Patient treated with Zithromax. (5) Cough Current Visit: Yes Status: Acute Plan to address problem: Robitussin DM 10 ml q 4 hours PRN for cough. (6) Fever Current Visit: Yes Status: Acute Qualifiers: Fever type: unspecified Qualified Code(s): R50.9 - Fever, unspecified Plan to address problem: Patient running low grade fever at this time. (7) Renal failure Current Visit: Yes Status: Acute Qualifiers: Renal failure chronicity: acute Acute renal failure type: unspecified Qualified Code(s): N17.9 - Acute kidney failure, unspecified Plan to address problem: Management as per nephrology. Subjective Date of service: 04/12/20 Principal diagnosis: COVID-19 Interval history: Patient alert, awake. Resting on High flow Oxygen ,Vapotherm , FIO2 100% and O2 saturation running 93%. No complaint of chest pain or shortness of breath at rest.. Patient afebrile and has mild leukocytosis. Chest xray 04/08/20 reported Moderate diffuse airspace disease throughout the lungs. Given this patient's history, atypical/viral pneumonia is suggested. Koenig virus antibody reported non reactive. Inflammatory markers Ferritin 926.3 LDH 815 Patient has CTA of chest 04/12/20 Small acute, occlusive bilateral PTE as above. Extensive bilateral airspace disease. Venous doppler studies of legs results pending. Patient is on S/C Lovenox 100 mg S/C q 12 hours, REMDESIVIR and Decodron. Objective Vital Signs - 12hr 04/12/20 04/12/20 03:47 04:47 Temperature 99.3 F Pulse Rate 68 Respiratory 18 Rate Blood Pressure 138/83 O2 Sat by Pulse 96 91 Oximetry Constitutional: no acute distress, alert, other (mild respiratory distress on FFM BIPAP) Eyes: non-icteric Neck: supple, no lymphadenopathy, no JVD, other (large short neck) Effort: mildly labored Ascultation: Bilateral: diminished breath sounds, rhonchi Cardiovascular: regular rate and rhythm, other (S1,S2) Gastrointestinal: normoactive bowel sounds, soft, non-tender, non-distended Integumentary: normal Extremities: no cyanosis, no edema, pulses normal Neurologic: normal mental status, non-focal exam, pupils equal and round, motor strength normal and Psychiatric: mood appropriate, affect normal CBC and BMP: 04/12/20 08:17 04/12/20 08:17 ABG, PT/INR, D-dimer: ABG ABG pH 7.376 pH Units (7.350-7.450) 04/09/20 20:11 ABG pCO2 40.4 mm Hg 04/09/20 20:11 ABG pO2 67.1 mm Hg (80.0-90.0) L 04/09/20 20:11 ABG O2 Saturation 93.2 % (95.0-99.0) L 04/09/20 20:11 PT/INR, D-dimer PT 14.4 Sec. (12.2-14.9) 04/10/20 04:57 INR 1.14 (0.87-1.13) H 04/10/20 04:57 D-Dimer > 25855 ng/mlDDU (0-234) H 04/11/20 09:54 Abnormal lab findings: Abnormal Labs 04/08/20 04/08/20 04/08/20 23:06 23:06 23:06 WBC RBC 5.59 H Hgb 17.0 H Hct 48.5 H MCHC 35 H Lymph % (Auto) 4.5 L [place] % (Auto) 7.5 H Lymph # (Auto) 0.5 L [place] # (Auto) Seg Neutrophils % 87.4 H Seg Neuts % (Manual) Lymphocytes % (Manual) Nucleated RBC % Seg Neutrophils # 9.3 H Seg Neutrophils # Man Lymphocytes # (Manual) INR D-Dimer 574.04 H ABG pO2 ABG O2 Saturation Oxyhemoglobin Sodium 136 L Chloride Carbon Dioxide BUN 31 H Creatinine 1.9 H Glucose 132 H Ferritin Direct Bilirubin AST 107 H ALT 69 H Alkaline Phosphatase Lactate Dehydrogenase C-Reactive Protein Total Protein Albumin 3.5 L Urine WBC (Auto) Urine Creatinine 04/08/20 04/08/20 04/09/20 23:06 23:06 09:55 WBC RBC Hgb Hct MCHC Lymph % (Auto) [place] % (Auto) Lymph # (Auto) [place] # (Auto) Seg Neutrophils % Seg Neuts % (Manual) Lymphocytes % (Manual) Nucleated RBC % Seg Neutrophils # Seg Neutrophils # Man Lymphocytes # (Manual) INR D-Dimer ABG pO2 ABG O2 Saturation Oxyhemoglobin Sodium Chloride Carbon Dioxide 17 L BUN 33 H Creatinine 2.0 H Glucose 131 H 135 H Ferritin 1068.0 H Direct Bilirubin AST ALT Alkaline Phosphatase Lactate Dehydrogenase 858 H C-Reactive Protein 24.30 H Total Protein Albumin Urine WBC (Auto) Urine Creatinine 04/09/20 04/09/20 04/09/20 20:11 Unknown Unknown WBC RBC Hgb Hct MCHC Lymph % (Auto) [place] % (Auto) Lymph # (Auto) [place] # (Auto) Seg Neutrophils % Seg Neuts % (Manual) Lymphocytes % (Manual) Nucleated RBC % Seg Neutrophils # Seg Neutrophils # Man Lymphocytes # (Manual) INR D-Dimer ABG pO2 67.1 L ABG O2 Saturation 93.2 L Oxyhemoglobin 91.7 L Sodium Chloride Carbon Dioxide BUN Creatinine Glucose Ferritin Direct Bilirubin AST ALT Alkaline Phosphatase Lactate Dehydrogenase C-Reactive Protein Total Protein Albumin Urine WBC (Auto) 8.0 H Urine Creatinine 176.6 H 1204/10/20 04/10/20 04:57 04:57 04:57 WBC 12.3 H RBC Hgb Hct MCHC Lymph % (Auto) 4.8 L [place] % (Auto) 9.5 H Lymph # (Auto) 0.6 L [place] # (Auto) 1.2 H Seg Neutrophils % 85.6 H Seg Neuts % (Manual) Lymphocytes % (Manual) Nucleated RBC % Seg Neutrophils # 10.5 H Seg Neutrophils # Man Lymphocytes # (Manual) INR 1.14 H D-Dimer ABG pO2 ABG O2 Saturation Oxyhemoglobin Sodium 146 H Chloride 107.4 H Carbon Dioxide BUN 43 H Creatinine 1.4 H Glucose 137 H Ferritin Direct Bilirubin AST ALT Alkaline Phosphatase Lactate Dehydrogenase C-Reactive Protein Total Protein Albumin Urine WBC (Auto) Urine Creatinine 04/10/20 04/11/20 04/11/20 04:57 09:54 09:54 WBC RBC Hgb Hct MCHC Lymph % (Auto) [place] % (Auto) Lymph # (Auto) [place] # (Auto) Seg Neutrophils % Seg Neuts % (Manual) Lymphocytes % (Manual) Nucleated RBC % Seg Neutrophils # Seg Neutrophils # Man Lymphocytes # (Manual) INR D-Dimer > 44708 H ABG pO2 ABG O2 Saturation Oxyhemoglobin Sodium Chloride Carbon Dioxide BUN Creatinine Glucose Ferritin Direct Bilirubin AST 50 H 76 H ALT 89 H Alkaline Phosphatase 134 H Lactate Dehydrogenase C-Reactive Protein Total Protein Albumin 3.2 L 3.0 L Urine WBC (Auto) Urine Creatinine 04/11/20 04/11/20 04/11/20 09:54 09:54 09:54 WBC 11.8 H RBC 5.26 H Hgb 15.4 H Hct 46.1 H MCHC Lymph % (Auto) [place] % (Auto) Lymph # (Auto) [place] # (Auto) Seg Neutrophils % Seg Neuts % (Manual) 91.0 H Lymphocytes % (Manual) 6.0 L Nucleated RBC % 1.0 H Seg Neutrophils # Seg Neutrophils # Man 10.7 H Lymphocytes # (Manual) 0.7 L INR D-Dimer ABG pO2 ABG O2 Saturation Oxyhemoglobin Sodium Chloride 107.1 H Carbon Dioxide BUN 33 H Creatinine Glucose 111 H Ferritin 926.3 H Direct Bilirubin AST ALT Alkaline Phosphatase Lactate Dehydrogenase 815 H C-Reactive Protein 5.70 H Total Protein Albumin Urine WBC (Auto) Urine Creatinine 04/12/20 04/12/20 04/12/20 08:17 08:17 08:17 WBC RBC 5.07 H Hgb Hct MCHC Lymph % (Auto) [place] % (Auto) Lymph # (Auto) [place] # (Auto) Seg Neutrophils % Seg Neuts % (Manual) 78.0 H Lymphocytes % (Manual) 10.0 L Nucleated RBC % Seg Neutrophils # Seg Neutrophils # Man 8.0 H Lymphocytes # (Manual) 1.0 L INR D-Dimer ABG pO2 ABG O2 Saturation Oxyhemoglobin Sodium Chloride Carbon Dioxide 31 H BUN 25 H Creatinine Glucose Ferritin Direct Bilirubin 0.3 H AST 63 H ALT 97 H Alkaline Phosphatase 156 H Lactate Dehydrogenase C-Reactive Protein Total Protein 6.1 L Albumin 3.3 L Urine WBC (Auto) Urine Creatinine CT scan - chest: report reviewed, image reviewed Additional Studies: CTA CHEST WITH IV CONTRAST INDICATION: elevated d-dimer. Chest pain, shortness of breath TECHNIQUE: Axial CT images were obtained through the chest after injection of IV contrast. 3 plane MIP reconstructions were produced. All CT scans at this location are performed using CT dose reduction for ALARA by means of automated exposure control. COMPARISON: None available. FINDINGS: Pulmonary Arteries: There is acute, occlusive PTE within the right lung base (as seen on series 4 image 73/115). Occlusive PTE is seen within left upper lobe segmental pulmonary artery as well (as seen on image 41 of the same series). There may be acute PTE in the left lung base, motion artifact is noted here. There is no central saddle embolus. Thoracic Aorta: No acute abnormality. Heart: Normal. Lungs: There is extensive bilateral airspace disease which is somewhat patchy in distribution. Pleura: No pleural effusion. No pneumothorax. Lymph Nodes: No significant adenopathy. Additional Findings: None. Upper Abdomen: No acute findings. There is hepatic steatosis. Right adrenal nodules may be adenomas but are nonspecific. Skeletal Structures: No significant osseous abnormality. IMPRESSION: 1. Small acute, occlusive bilateral PTE as above. 2. Extensive bilateral airspace disease. 3. Additional incidental findings as above.
--- NOTE | 2020-04-12 14:38 | Cat Scan Report ---
CTA CHEST WITH IV CONTRAST INDICATION: elevated d-dimer. Chest pain, shortness of breath TECHNIQUE: Axial CT images were obtained through the chest after injection of IV contrast. 3 plane MIP reconstru ctions were produced. All CT scans at this location are performed using CT dose reduction for ALARA b y means of automated exposure control. COMPARISON: None available. FINDINGS: Pulmonary Arteries: There is acute, occlusive PTE within the right lung base (as seen on series 4 kaye ge 73/115). Occlusive PTE is seen within left upper lobe segmental pulmonary artery as well (as seen on image 41 of the same series). There may be acute PTE in the left lung base, motion artifact is not ed here. There is no central saddle embolus. Thoracic Aorta: No acute abnormality. Heart: Normal. Lungs: There is extensive bilateral airspace disease which is somewhat patchy in distribution. Pleura: No pleural effusion. No pneumothorax. Lymph Nodes: No significant adenopathy. Additional Findings: None. Upper Abdomen: No acute findings. There is hepatic steatosis. Right adrenal nodules may be adenomas b ut are nonspecific. Skeletal Structures: No significant osseous abnormality. IMPRESSION: 1. Small acute, occlusive bilateral PTE as above. 2. Extensive bilateral airspace disease. 3. Additional incidental findings as above. CRITICAL RESULT: Time of Discovery (BLACK OXIDE OPERATOR/CDT): 1329 Time of Communication (BLACK OXIDE OPERATOR/CDT): 1333 Licensed Practitioner Receiving Report: CHANTALE Valente 3rd floor Read-Back Performed: Yes. Signer Name: Skyler Vasquez MD Signed: 04/12/2020 2:33 PM Workstation Name: [id number]
--- NOTE | 2020-04-12 16:58 | Progress Note ---
Assessment and Plan - Patient Problems (1) Severe sepsis Current Visit: Yes Status: Acute Plan to address problem: Patient presented with tachypnea, leukocytosis, pneumonia on CXR, end organ dysfunction with RICKY and respiratory failure Secondary to COVID-19 pneumonia Infectious disease consulted 04/08 BC x2 no growth after 72 hours (2) Pneumonia due to COVID-19 virus Current Visit: Yes Status: Acute Plan to address problem: Pneumonia on CXR 04/09 COVID-19 antibody negative Continue dexamethasone and remdesivir Anticoagulation per protocol Prone position as needed Supplemental oxygen as needed Disease consulted Trend inflammatory markers Droplet/contact isolation precautions Pulmonary hygiene OOB 3 times daily and as needed 04/12 COVID-19 PCR pending (3) Acute respiratory failure with hypoxia Current Visit: Yes Status: Acute Plan to address problem: Patient presented with hypoxia S/p BiPAP Currently on high flow nasal cannula Continue SPO2 monitoring Pulmonary hygiene Supplemental oxygen as needed, wean as tolerated (4) Transaminitis Current Visit: Yes Status: Acute Plan to address problem: Secondary to COVID-19/sepsis Monitor LFTs with remdesivir therapy 04/08 AST: 107, ALT 69, alkaline phos 125 04/10 AST 50, ALT 49, alkaline phos 99 04/11 AST 76, ALT 89, alkaline Светлана 144 04/12 AST 63, ALT 97, alkaline phos 158 (5) RICKY (acute kidney injury) Current Visit: Yes Status: Resolved Plan to address problem: Presented with acute kidney injury Trend BMP Secondary to sepsis/acute tubular necrosis Avoid nephrotoxic medications 04/08 creatinine 1.9, 2; 04/09 creatinine 1.29; 04/10 Cr 1.1, 04/11 Cr 0.9 (6) Diarrhea Current Visit: Yes Status: Acute Plan to address problem: Secondary to COVID-19 Supportive care (7) Pulmonary embolism Current Visit: Yes Status: Acute Plan to address problem: 04/12 CTA chest shows shows acute occlusive pulmonary embolism within the right lung base, occlusive pulmonary emboli but some within the left upper lobe segmental pulmonary artery, possible acute pulmonary embolism in the left lung base with no central saddle embolus. Extensive bilateral airspace disease with somewhat patchy distribution. Hepatic steatosis, right adrenal nodules may be adenomas Therapeutic anticoagulation with Lovenox Supplemental oxygen as needed Consider echo to evaluate for right heart strain if oxygenation is not improving (8) Elevated d-dimer Current Visit: Yes Status: Acute Plan to address problem: 04/08 D-dimer 574 04/12 D-dimer greater than 10,000 04/12 CTA chest shows acute occlusive pulmonary plasm in the right lung base, left upper lobe segmental pulmonary artery, possible acute pulmonary embolism in the left lung base 04/12 bilateral lower extremity Dopplers pending (9) DVT prophylaxis Current Visit: Yes Status: Acute Plan to address problem: SCDs to bilateral lower extremities while in bed 04/12 started on therapeutic anticoagulation History Interval history: This is a 55-year-old male with no significant medical history who presented to the emergency department on 04/08 with a 5-day history of generalized malaise, cough, fever, shortness of breath, loss of smell and taste and diarrhea. Patient is tested positive for COVID-19 at outpatient facility 3 days before admission. Upon arrival to the emergency department his SPO2 on room air was 85% and was subsequently placed on BiPAP. Work-up emergency department revealed sepsis (presented with hypoxia, hypotension, acute kidney injury and transaminitis likely secondary to bilateral pneumonia), bilateral pneumonia on CXR, acute kidney injury, diarrhea, acute hypoxic respiratory failure, transaminitis and the patient was placed on empiric antibiotics and started on steroids. In the emergency department he received 3.5 L of normal saline, azithromycin, cefepime and dexamethasone. Patient was admitted to the hospitalist service with a consult to nephrology, infectious disease and pulmonology. Today on examination patient is on 25 L, 100% FiO2 high flow nasal cannula. Patient states that he still gets short of breath and is coughing. Patient encouraged to prone to sleep and follow as needed. This morning patient's D-dimer resulted as greater than 10,000 and CTA chest was obtained which showed small bilateral pulmonary embolism however bilateral lower extremities are still pending. Patient's COVID-19 PCR was resent today. 04/09: Remains on BiPAP with 80% FiO2 with SPO2 of 94%. Infectious disease has started the patient on remdesivir. Patient will continue his azithromycin and his ceftriaxone was stopped due to cefepime allergy. ID has also ordered a SARS CoV-2 IgG to determine candidacy for convalescent plasma. We will continue to monitor. 04/10/2020. Patient currently with high flow nasal cannula 40 L/min O2 with FiO2 of 100%. Procalcitonin normal at 0.51. CRP elevated at 24.3, LDH 858 and ferritin 1068 and D-dimer 574. Trend inflammatory markers today. 04/11/2020. Patient currently with high flow nasal cannula 40 L/min O2 with FiO2 of 100%. Continue dexamethasone, remdesivir and prone positioning when possible. Continue to trend inflammatory markers. Hospitalist Physical - Constitutional Vitals: Temp Pulse Resp BP Pulse Ox 100.3 F H 71 18 129/77 90 04/12/20 14:26 04/12/20 14:26 04/12/20 14:26 04/12/20 14:26 04/12/20 14:26 General appearance: Present: no acute distress, well-nourished - EENT Eyes: Present: EOM intact ENT: clear oral mucosa, dentition normal - Neck Neck: Present: normal ROM - Respiratory Respiratory effort: normal Respiratory: bilateral: diminished - Cardiovascular Rhythm: regular Heart Sounds: Present: S1 & S2. Absent: systolic murmur, diastolic murmur - Extremities Extremities: no ischemia, pulses intact, pulses symmetrical, No edema, normal temperature, normal color, Full ROM - Abdominal General gastrointestinal: soft, non-tender, non-distended, normal bowel sounds - Integumentary Integumentary: Present: clear, warm, dry - Psychiatric Psychiatric: appropriate mood/affect, cooperative - Neurologic Neurologic: CNII-XII intact, no focal deficits, moves all extremities - Allied Health Allied health notes reviewed: nursing Results - Labs CBC & Chem 7: 04/12/20 08:17 04/12/20 08:17 Labs: Laboratory Last Values WBC 10.2 K/mm3 (4.5-11.0) 04/12/20 08:17 RBC 5.07 M/mm3 (3.65-5.03) H 04/12/20 08:17 Hgb 15.2 gm/dl (11.8-15.2) 04/12/20 08:17 Hct 44.7 % (35.5-45.6) 04/12/20 08:17 MCV 88 fl (84-94) 04/12/20 08:17 MCH 30 pg (28-32) 04/12/20 08:17 MCHC 34 % (32-34) 04/12/20 08:17 RDW 14.3 % (13.2-15.2) 04/12/20 08:17 Plt Count 279 K/mm3 (140-440) 04/12/20 08:17 Lymph % (Auto) 4.8 % (13.4-35.0) L 04/10/20 04:57 [place] % (Auto) 9.5 % (0.0-7.3) H 04/10/20 04:57 Eos % (Auto) 0.0 % (0.0-4.3) 04/10/20 04:57 Baso % (Auto) 0.1 % (0.0-1.8) 04/10/20 04:57 Lymph # (Auto) 0.6 K/mm3 (1.2-5.4) L 04/10/20 04:57 [place] # (Auto) 1.2 K/mm3 (0.0-0.8) H 04/10/20 04:57 Eos # (Auto) 0.0 K/mm3 (0.0-0.4) 04/10/20 04:57 Baso # (Auto) 0.0 K/mm3 (0.0-0.1) 04/10/20 04:57 Add Manual Diff Complete 04/12/20 08:17 Total Counted 100 04/12/20 08:17 Seg Neutrophils % 85.6 % (40.0-70.0) H 04/10/20 04:57 Seg Neuts % (Manual) 78.0 % (40.0-70.0) H 04/12/20 08:17 Band Neutrophils % 3.0 % 04/12/20 08:17 Lymphocytes % (Manual) 10.0 % (13.4-35.0) L 04/12/20 08:17 Reactive Lymphs % (Man) 1.0 % 04/11/20 09:54 Monocytes % (Manual) 7.0 % (0.0-7.3) 04/12/20 08:17 Metamyelocytes % 1.0 % 04/12/20 08:17 Myelocytes % 1.0 % 04/12/20 08:17 Nucleated RBC % Not Reportable 04/12/20 08:17 Seg Neutrophils # 10.5 K/mm3 (1.8-7.7) H 04/10/20 04:57 Seg Neutrophils # Man 8.0 K/mm3 (1.8-7.7) H 04/12/20 08:17 Band Neutrophils # 0.3 K/mm3 04/12/20 08:17 Lymphocytes # (Manual) 1.0 K/mm3 (1.2-5.4) L 04/12/20 08:17 Abs React Lymphs (Man) 0.0 K/mm3 04/12/20 08:17 Monocytes # (Manual) 0.7 K/mm3 (0.0-0.8) 04/12/20 08:17 Eosinophils # (Manual) 0.0 K/mm3 (0.0-0.4) 04/12/20 08:17 Basophils # (Manual) 0.0 K/mm3 (0.0-0.1) 04/12/20 08:17 Metamyelocytes # 0.1 K/mm3 04/12/20 08:17 Myelocytes # 0.1 K/mm3 04/12/20 08:17 Promyelocytes # 0.0 K/mm3 04/12/20 08:17 Blast Cells # 0.0 K/mm3 04/12/20 08:17 WBC Morphology Not Reportable 04/12/20 08:17 Hypersegmented Neuts Not Reportable 04/12/20 08:17 Hyposegmented Neuts Not Reportable 04/12/20 08:17 Hypogranular Neuts Not Reportable 04/12/20 08:17 Smudge Cells Not Reportable 04/12/20 08:17 Toxic Granulation Not Reportable 04/12/20 08:17 Toxic Vacuolation Not Reportable 04/12/20 08:17 Dohle Bodies Not Reportable 04/12/20 08:17 Pelger-Huet Anomaly Not Reportable 04/12/20 08:17 Jason Rods Not Reportable 04/12/20 08:17 Platelet Estimate Consistent w auto 04/12/20 08:17 Clumped Platelets Not Reportable 04/12/20 08:17 Plt Clumps, EDTA Not Reportable 04/12/20 08:17 Large Platelets Not Reportable 04/12/20 08:17 Giant Platelets Not Reportable 04/12/20 08:17 Platelet Satelliting Not Reportable 04/12/20 08:17 Plt Morphology Comment Not Reportable 04/12/20 08:17 RBC Morphology Normal 04/12/20 08:17 Dimorphic RBCs Not Reportable 04/12/20 08:17 Polychromasia Not Reportable 04/12/20 08:17 Hypochromasia Not Reportable 04/12/20 08:17 Poikilocytosis Not Reportable 04/12/20 08:17 Anisocytosis Not Reportable 04/12/20 08:17 Microcytosis Not Reportable 04/12/20 08:17 Macrocytosis Not Reportable 04/12/20 08:17 Spherocytes Not Reportable 04/12/20 08:17 Pappenheimer Bodies Not Reportable 04/12/20 08:17 Sickle Cells Not Reportable 04/12/20 08:17 Target Cells Not Reportable 04/12/20 08:17 Tear Drop Cells Not Reportable 04/12/20 08:17 Ovalocytes Not Reportable 04/12/20 08:17 Helmet Cells Not Reportable 04/12/20 08:17 [place] Bodies Not Reportable 04/12/20 08:17 Norden Rings Not Reportable 04/12/20 08:17 Janessa Cells Not Reportable 04/12/20 08:17 Bite Cells Not Reportable 04/12/20 08:17 Crenated Cell Not Reportable 04/12/20 08:17 Elliptocytes Not Reportable 04/12/20 08:17 Acanthocytes (Spur) Not Reportable 04/12/20 08:17 Rouleaux Not Reportable 04/12/20 08:17 Hemoglobin C Crystals Not Reportable 04/12/20 08:17 Schistocytes Not Reportable 04/12/20 08:17 Malaria parasites Not Reportable 04/12/20 08:17 Nehemias Bodies Not Reportable 04/12/20 08:17 Hem Pathologist Commnt No 04/12/20 08:17 PT 14.4 Sec. (12.2-14.9) 04/10/20 04:57 INR 1.14 (0.87-1.13) H 04/10/20 04:57 D-Dimer > 11312 ng/mlDDU (0-234) H 04/11/20 09:54 ABG pH 7.376 pH Units (7.350-7.450) 04/09/20 20:11 ABG pCO2 40.4 mm Hg 04/09/20 20:11 ABG pO2 67.1 mm Hg (80.0-90.0) L 04/09/20 20:11 ABG HCO3 23.2 mmol/L (20.0-26.0) 04/09/20 20:11 ABG O2 Saturation 93.2 % (95.0-99.0) L 04/09/20 20:11 ABG O2 Content 19.8 (0.0-44) 04/09/20 20:11 ABG Base Excess -1.8 mmol/L (-2.0-3.0) 04/09/20 20:11 ABG Hemoglobin 15.4 gm/dl (14.0-18.0) 04/09/20 20:11 ABG Carboxyhemoglobin 1.0 % (0.0-5.0) 04/09/20 20:11 ABG Methemoglobin 0.6 % (0.0-1.5) 04/09/20 20:11 Oxyhemoglobin 91.7 % (95.0-99.0) L 04/09/20 20:11 FiO2 80 % 04/09/20 20:11 Sodium 143 mmol/L (137-145) 04/12/20 08:17 Potassium 3.9 mmol/L (3.6-5.0) 04/12/20 08:17 Chloride 105.0 mmol/L (98-107) 04/12/20 08:17 Carbon Dioxide 31 mmol/L (22-30) H 04/12/20 08:17 Anion Gap 11 mmol/L 04/12/20 08:17 BUN 25 mg/dL (9-20) H 04/12/20 08:17 Creatinine 0.9 mg/dL (0.8-1.3) 04/12/20 08:17 Estimated GFR > 60 ml/min 04/12/20 08:17 BUN/Creatinine Ratio 28 % 04/12/20 08:17 Glucose 93 mg/dL (75-100) 04/12/20 08:17 Lactic Acid 1.50 mmol/L (0.7-2.0) 04/09/20 09:55 Calcium 8.4 mg/dL (8.4-10.2) 04/12/20 08:17 Ferritin 926.3 ng/mL (30.0-300.0) H 04/11/20 09:54 Total Bilirubin 0.80 mg/dL (0.1-1.2) 04/12/20 08:17 Direct Bilirubin 0.3 mg/dL (0-0.2) H 04/12/20 08:17 Indirect Bilirubin 0.5 mg/dL 04/12/20 08:17 AST 63 units/L (5-40) H 04/12/20 08:17 ALT 97 units/L (7-56) H 04/12/20 08:17 Alkaline Phosphatase 156 units/L (35-129) H 04/12/20 08:17 Lactate Dehydrogenase 815 units/L (91-180) H 04/11/20 09:54 C-Reactive Protein 5.70 mg/dL (0.00-1.30) H 04/11/20 09:54 Total Protein 6.1 g/dL (6.3-8.2) L 04/12/20 08:17 Albumin 3.3 g/dL (3.9-5) L 04/12/20 08:17 Albumin/Globulin Ratio 1.2 % 04/12/20 08:17 Procalcitonin 0.51 ng/mL (<0.15) 04/08/20 23:06 Urine Color Yellow (Yellow) 04/09/20 Unknown Urine Turbidity Clear (Clear) 04/09/20 Unknown Urine pH 5.0 (5.0-7.0) 04/09/20 Unknown Ur Specific [place] 1.018 (1.003-1.030) 04/09/20 Unknown Urine Protein <15 mg/dl mg/dL (Negative) 04/09/20 Unknown Urine Glucose (UA) Neg mg/dL (Negative) 04/09/20 Unknown Urine Ketones Neg mg/dL (Negative) 04/09/20 Unknown Urine Blood Neg (Negative) 04/09/20 Unknown Urine Nitrite Neg (Negative) 04/09/20 Unknown Urine Bilirubin Neg (Negative) 04/09/20 Unknown Urine Urobilinogen < 2.0 mg/dL (<2.0) 04/09/20 Unknown Ur Leukocyte Esterase Neg (Negative) 04/09/20 Unknown Urine WBC (Auto) 8.0 /HPF (0.0-6.0) H 04/09/20 Unknown Urine RBC (Auto) 3.0 /HPF (0.0-6.0) 04/09/20 Unknown U Epithel Cells (Auto) 1.0 /HPF (0-13.0) 04/09/20 Unknown Hyaline Casts 2 /LPF 04/09/20 Unknown Urine Mucus Few /HPF 04/09/20 Unknown Urine Eosinophils None seen (None Seen) 04/09/20 Unknown Urine Creatinine 176.6 mg/dL (0.1-20.0) H 04/09/20 Unknown Urine Sodium 35 mmol/L 04/09/20 Unknown SARS-CoV-2 IgG Ab Nonreactive (NonReactive) 04/09/20 09:55 Blood Type O POSITIVE 04/09/20 19:43 Antibody Screen Negative 04/09/20 19:43 Microbiology: Microbiology 04/08/20 23:28 Peripheral/Venous Blood Culture - Preliminary NO GROWTH AFTER 72 HOURS 04/08/20 23:06 Peripheral/Venous Blood Culture - Preliminary NO GROWTH AFTER 72 HOURS [place]son/IV: Voiding Method Urinal IV Catheter Type [Right INT / Saline Lock Antecubital] Active Medications - Current Medications Current Medications: Generic Name Dose Route Start Last Admin Trade Name Freq PRN Reason Stop Dose Admin Acetaminophen 650 mg 04/09/20 02:25 Acetaminophen 325 Mg Tab PO Q6H PRN Pain MILD(1-3)/Fever >100.5/SARKAR Dexamethasone 6 mg 04/12/20 11:00 04/12/20 11:08 Dexamethasone 4 Mg/Ml Vial IV 04/16/20 23:59 6 mg Q12HR GLORIA Administration Dexamethasone 6 mg 04/17/20 10:00 Dexamethasone 4 Mg Tab PO 04/18/20 12:59 DAILY GLORIA Enoxaparin Sodium 100 mg 04/12/20 10:00 04/12/20 11:08 Enoxaparin 100 Mg/1 Ml Inj SUB-Q 100 mg Q12HR GLORIA Administration Protocol Guaifenesin 10 ml 04/10/20 13:00 04/12/20 05:32 Guaifenesin Dm 200/20 Mg Oral Liqd 10 Ml PO 10 ml Q4H PRN Administration Cough Hydrophilic Ointment 1 applic 04/11/20 08:00 Lip Therapy Vaseline TP DIRECT PRN Dry Lips Azithromycin 500 mg/ Sodium 250 mls @ 250 mls/hr 04/09/20 10:00 04/12/20 11:07 Chloride IV 04/12/20 18:00 250 mls/hr Q24HR GLORIA Administration Protocol REMDESIVIR 100 mg/ Sodium 250 mls @ 500 mls/hr 04/10/20 21:00 04/11/20 21:48 Chloride IV 04/13/20 21:29 500 mls/hr Q24HR@2100 GLORIA Administration Magnesium Hydroxide 30 ml 04/09/20 02:25 Magnesium Hydroxide (Mom) Oral Liqd Udc PO Q4H PRN Constipation Midodrine 5 mg 04/09/20 16:00 04/12/20 11:07 Midodrine 5 Mg Tab PO 5 mg TID@0800,1200,1600 GLORIA Administration Morphine Sulfate 2 mg 04/09/20 02:25 04/09/20 18:00 Morphine 2 Mg/1 Ml Inj IV 2 mg Q4H PRN Administration Pain, Moderate (4-6) Ondansetron HCl 4 mg 04/09/20 02:25 04/09/20 18:01 Ondansetron 4 Mg/2 Ml Inj IV 4 mg Q8H PRN Administration Nausea And Vomiting Sodium Chloride 10 ml 04/09/20 10:00 04/12/20 11:08 Sodium Chloride 0.9% 10 Ml Flush Syringe IV 10 ml BID GLORIA Administration Sodium Chloride 10 ml 04/09/20 02:25 Sodium Chloride 0.9% 10 Ml Flush Syringe IV PRN PRN LINE FLUSH Sodium Chloride 50 ml 04/09/20 09:30 04/11/20 21:49 Sodium Chloride 0.9% 50 Ml Ivpb IV 04/13/20 21:01 50 ml Q24HR@2100 GLORIA Administration Nutrition/Malnutrition Assess - Dietary Evaluation Nutrition/Malnutrition Findings: Nutrition Notes Start: 04/09/20 11:14 Freq: Status: Active Protocol: Document 04/09/20 11:14 EN (Rec: 04/09/20 11:16 EN [id number]) Co-Sign 04/09/20 11:14 LM Nutrition Notes Need for Assessment generated from: MD Order,Education Initial or Follow up Brief Note Current Diagnosis Acute Kidney Injury, Respiratory Failure Other Pertinent Diagnosis Sepsis, COVID-19 + Current Diet Regular Subjective/Other Information MD consult for diet education. Pt is on a regular diet. Per chart, pt had diarrhea upon admission and it has since improved. Pt is currently in ED. Nutrition Intervention Anticipated Discharge Needs: Regular diet Follow-Up By: 04/13/20 Additional Comments F/u for assessment and any diet education needs
--- NOTE | 2020-04-12 19:45 | Vascular Lab Report ---
DUPLEX DOPPLER LOWER EXTREMITY VEINS, BILATERAL INDICATION / CLINICAL INFORMATION: very high ddimer r/o DVT. TECHNIQUE: Duplex doppler imaging was performed through the veins of both lower extremities using venous lew elpidio and other maneuvers. COMPARISON: None available. FINDINGS: RIGHT COMMON FEMORAL VEIN: Negative. RIGHT FEMORAL VEIN: Negative. RIGHT POPLITEAL VEIN: Negative. RIGHT CALF VEINS: Negative. LEFT COMMON FEMORAL VEIN: Negative. LEFT FEMORAL VEIN: Negative. LEFT POPLITEAL VEIN: Negative. LEFT CALF VEINS: Negative. ADDITIONAL FINDINGS: None. IMPRESSION: 1. No sonographic evidence for DVT in either lower extremity. Signer Name: Armando Clayton MD Signed: 04/12/2020 7:40 PM Workstation Name: [id number]
[2020-04-12] MEDS: diphenhydrAMINE 25 MG CAP PO PRN (23:28)
[2020-04-13] MEDS: SODIUM CHLORIDE 0.9% 50 ML IVPB IV SCH ×2 (01:50→21:40)
[2020-04-13] MEDS: dexAMETHasone 4 MG/ML VIAL IV SCH ×3 (01:50→21:40)
[2020-04-13] MEDS: REMDESIVIR 100 MG in SODIUM CHLORIDE 0.9% 250ML 250 ML IV SCH ×2 (01:50→21:39)
[2020-04-13] MEDS: guaiFENesin DM 200/20 MG ORAL LIQD 10 ML PO PRN ×2 (05:36→21:40)
[2020-04-13 07:26] LABS: Hematocrit 46.1 % (35.5-45.6); Hemoglobin 15.6 gm/dl (11.8-15.2); Mean Corpuscular HGB Conc 34 % (32-34); Mean Corpuscular Volume 89 fl (84-94); Platelet Count 271 K/mm3 (140-440); Red Blood Count 5.21 M/mm3 (3.65-5.03); Red Cell Distribution Width 14.2 % (13.2-15.2)
--- NOTE | 2020-04-13 07:59 | Progress Note ---
Assessment and Plan Cultures: Blood culture no growth today SARS CoV2 PCR positive as an outpatient SARS Covid 2 IgG nonreactive Assessment: 52 years old male with history of with no significant past medical history, admitted on 04/08/2020 secondary to 5-day history of generalized malaise, cough, fever, shortness of breath, loss of smell and taste: #Severe sepsis: Remains with low-grade fever. Likely due to bilateral pneumonia. #Severe COVID pneumonia: Noted elevated inflammatory markers. Chest x-ray with bilateral airspace disease. Noted very high D-dimer >10,000. CTA shows acute bilateral pulmonary embolism. Venous ultrasound no DVT. #Acute hypoxemic respiratory failure: Initial O2 sats dropped to 75%. Not better. Remains on high flow nasal cannula 100%. #Elevated LFTs: from COVID #RICKY: from COVID, improving #Acute diarrhea: For COVID-19 infection. #Very elevated D-dimer: Should rule out DVT/PE #Cefepime allergy: On admission patient developed hives #Nonsustained V. tach Recommendations: -Close monitoring transferred to [facility] at least -Cards consult ?V tach -Pulmonary on board -On full dose anticoagulation for pulmonary embolism -Continue dexamethasone 6 mg IV/PO twice daily -Continue remdesivir total 5 days D4 of 5 -SARS-CoV-2 IgG negative, patient may benefit from Covid convalescent plasma -Monitor inflammatory markers - ferritin, Ddimer, CRP, LDH -Completed azithromycin -Monitor liver function test on Remdesivir -Continue anticoagulation per System Protocol -Prone positioning as possible All laboratory, cultures and imaging were reviewed. High mortality Will follow Ave Morales MD Infectious Diseases [employer] [facility] [phone] Subjective Date of service: 04/13/20 Principal diagnosis: COVID-19 Interval history: Remains on high flow nasal cannula 100%, 25L, noted low-grade fever. 14 beats of V. tach. Objective - Exam Narrative Exam: Physical Exam: reviewed ED and hospitalist notes. Deferred to prevent COVID-19 transmission. - Constitutional Vitals: Vital Signs Temp Pulse Resp BP Pulse Ox 98.6 F 68 20 146/94 91 04/13/20 05:24 04/13/20 05:24 04/13/20 05:24 04/13/20 05:24 04/13/20 05:24 Temperature -Last 24 Hours Temperature 98.6 F Temperature 99.8 F Temperature 100.3 F - Labs CBC & Chem 7: 04/13/20 05:54 04/12/20 08:17 Labs: Abnormal lab results 04/12/20 04/12/20 04/12/20 Range/Units 08:17 08:17 08:17 RBC 5.07 H (3.65-5.03) M/mm3 Hgb (11.8-15.2) gm/dl Hct (35.5-45.6) % Seg Neuts % (Manual) 78.0 H (40.0-70.0) % Lymphocytes % (Manual) 10.0 L (13.4-35.0) % Seg Neutrophils # Man 8.0 H (1.8-7.7) K/mm3 Lymphocytes # (Manual) 1.0 L (1.2-5.4) K/mm3 Carbon Dioxide 31 H (22-30) mmol/L BUN 25 H (9-20) mg/dL Direct Bilirubin 0.3 H (0-0.2) mg/dL AST 63 H (5-40) units/L ALT 97 H (7-56) units/L Alkaline Phosphatase 156 H (35-129) units/L Total Protein 6.1 L (6.3-8.2) g/dL Albumin 3.3 L (3.9-5) g/dL 04/13/20 Range/Units 05:54 RBC 5.21 H (3.65-5.03) M/mm3 Hgb 15.6 H (11.8-15.2) gm/dl Hct 46.1 H (35.5-45.6) % Seg Neuts % (Manual) (40.0-70.0) % Lymphocytes % (Manual) (13.4-35.0) % Seg Neutrophils # Man (1.8-7.7) K/mm3 Lymphocytes # (Manual) (1.2-5.4) K/mm3 Carbon Dioxide (22-30) mmol/L BUN (9-20) mg/dL Direct Bilirubin (0-0.2) mg/dL AST (5-40) units/L ALT (7-56) units/L Alkaline Phosphatase (35-129) units/L Total Protein (6.3-8.2) g/dL Albumin (3.9-5) g/dL
--- NOTE | 2020-04-13 08:40 | Progress Note ---
Assessment and Plan 1. Acute kidney injury: Likely vasomotor nephropathy in the setting of hypotension and COVID-19 infection. Renal US ordered. Monitor renal function. Creatinine level is 0.9 from 1.1 from 1.4 from 2 from 1.9. Avoid nephrotoxic agents. Meds dosage based on GFR. 2. FEN: Metabolic acidosis, improved, monitor. Encouraged PO fluids. Monitor lytes and volume status. 3. Acute respiratory failure with hypoxia: 2/2 COVID PNA. On HFNC O2. 4. Severe sepsis, POA: 2/2 COVID PNA. Followed by ID. 5. Severe COVID pneumonia: On IV Decadron and Remdesivir. Elevated inflammatory markers. 6. Elevated LFTs: 2/2 COVID. Subjective: Patient was seen and examined at the bedside. Doing ok. Examination: General appearance: well-developed, appears stated age, on HFNC O2 HEENT: Pupils reacting to light Neck: Trachea midline Respiratory: ctab Cardiology: regular, S1S2, no murmur Gastrointestinal: normoactive bowel sounds, no tenderness, ND Integumentary: no obvious rash Neurologic: AOX4, able to move extremities Ext: no edema Subjective Date of service: 04/13/20 Principal diagnosis: COVID-19 Objective - Vital Signs Vital signs: Vital Signs - 12hr 04/12/20 04/12/20 04/13/20 21:39 22:26 02:55 Temperature 99.8 F H Pulse Rate 70 Respiratory 20 Rate Blood Pressure 145/84 O2 Sat by Pulse 88 97 92 Oximetry 04/13/20 05:24 Temperature 98.6 F Pulse Rate 68 Respiratory 20 Rate Blood Pressure 146/94 O2 Sat by Pulse 91 Oximetry - Lab 04/13/20 05:54 04/12/20 08:17 Most recent lab results ABG pH 7.376 pH Units (7.350-7.450) 04/09/20 20:11 ABG pCO2 40.4 mm Hg 04/09/20 20:11 ABG pO2 67.1 mm Hg (80.0-90.0) L 04/09/20 20:11 ABG HCO3 23.2 mmol/L (20.0-26.0) 04/09/20 20:11 ABG O2 Saturation 93.2 % (95.0-99.0) L 04/09/20 20:11 Calcium 8.4 mg/dL (8.4-10.2) 04/12/20 08:17 Urine Creatinine 176.6 mg/dL (0.1-20.0) H 04/09/20 Unknown Urine Sodium 35 mmol/L 04/09/20 Unknown Medications & Allergies - Medications Allergies/Adverse Reactions: Allergies cefepime Allergy (Verified 04/09/20 03:19) Hives Active Medications: Generic Name Dose Route Start Last Admin Trade Name Freq PRN Reason Stop Dose Admin Acetaminophen 650 mg 04/09/20 02:25 Acetaminophen 325 Mg Tab PO Q6H PRN Pain MILD(1-3)/Fever >100.5/SARKAR Dexamethasone 6 mg 04/12/20 11:00 04/13/20 01:50 Dexamethasone 4 Mg/Ml Vial IV 04/16/20 23:59 6 mg Q12HR GLORIA Administration Dexamethasone 6 mg 04/17/20 10:00 Dexamethasone 4 Mg Tab PO 04/18/20 12:59 DAILY GLORIA Diphenhydramine HCl 25 mg 04/12/20 22:44 04/12/20 23:28 Diphenhydramine 25 Mg Cap PO 25 mg QHS PRN Administration Sleep Enoxaparin Sodium 100 mg 04/12/20 10:00 04/12/20 23:28 Enoxaparin 100 Mg/1 Ml Inj SUB-Q 100 mg Q12HR GLORIA Administration Protocol Guaifenesin 10 ml 04/10/20 13:00 04/13/20 05:36 Guaifenesin Dm 200/20 Mg Oral Liqd 10 Ml PO 10 ml Q4H PRN Administration Cough Hydrophilic Ointment 1 applic 04/11/20 08:00 Lip Therapy Vaseline TP DIRECT PRN Dry Lips REMDESIVIR 100 mg/ Sodium 250 mls @ 500 mls/hr 04/10/20 21:00 04/13/20 01:50 Chloride IV 04/13/20 21:29 500 mls/hr Q24HR@2100 GLORIA Administration Magnesium Hydroxide 30 ml 04/09/20 02:25 Magnesium Hydroxide (Mom) Oral Liqd Udc PO Q4H PRN Constipation Midodrine 5 mg 04/09/20 16:00 04/12/20 17:22 Midodrine 5 Mg Tab PO 5 mg TID@0800,1200,1600 GLORIA Administration Morphine Sulfate 2 mg 04/09/20 02:25 04/09/20 18:00 Morphine 2 Mg/1 Ml Inj IV 2 mg Q4H PRN Administration Pain, Moderate (4-6) Ondansetron HCl 4 mg 04/09/20 02:25 04/09/20 18:01 Ondansetron 4 Mg/2 Ml Inj IV 4 mg Q8H PRN Administration Nausea And Vomiting Sodium Chloride 10 ml 04/09/20 10:00 04/12/20 23:29 Sodium Chloride 0.9% 10 Ml Flush Syringe IV 10 ml BID GLORIA Administration Sodium Chloride 10 ml 04/09/20 02:25 Sodium Chloride 0.9% 10 Ml Flush Syringe IV PRN PRN LINE FLUSH Sodium Chloride 50 ml 04/09/20 09:30 04/13/20 01:50 Sodium Chloride 0.9% 50 Ml Ivpb IV 04/13/20 21:01 50 ml Q24HR@2100 GLORIA Administration
[2020-04-13] MEDS: MIDODRINE 5 MG TAB PO SCH ×3 (09:23→16:39)
[2020-04-13] MEDS: ENOXAPARIN 100 MG/1 ML INJ SUB-Q SCH ×2 (09:23→21:40)
[2020-04-13 09:36] LABS: Platelet Estimate Consistent w Auto; RBC Morphology Normal; Total Cells Counted 100; Toxic Granulation 1+
--- NOTE | 2020-04-13 11:37 | Progress Note ---
Assessment and Plan Patient alert, awake. Still on High flow Oxygen ,Vapotherm , FIO2 100% and O2 saturation running 95%. No complaint of chest pain or shortness of breath at rest.. Patient afebrile and has mild leukocytosis. Chest xray 04/08/20 reported Moderate diffuse airspace disease throughout the lungs. Given this patient's history, atypical/viral pneumonia is suggested. Koenig virus antibody reported non reactive. Inflammatory markers Ferritin 926.3 LDH 815 Patient has CTA of chest 04/12/20 Small acute, occlusive bilateral PTE as above. Extensive bilateral airspace disease. Venous doppler studies of legs reported no DVT in either legs. Patient is on S/C Lovenox 100 mg S/C q 12 hours, and Decodron. Patient finished course of REMDESIVIR. - Patient Problems (1) Respiratory failure Current Visit: Yes Status: Acute Qualifiers: Chronicity: acute Respiratory failure complication: hypoxia Qualified Code(s): J96.01 - Acute respiratory failure with hypoxia Plan to address problem: Patient is oh high flow O2 100%, FIO2. (2) COVID-19 Current Visit: Yes Status: Acute Plan to address problem: Koenig virus antibody reported negative. Patient is on S/C Heparin, and Decodron. Patient finished course of REMDESIVIR. (3) Pulmonary embolism Current Visit: Yes Status: Acute Plan to address problem: Patient is on Lovenox 100 mg S/C q 12 hours. (4) Bilateral pneumonia Current Visit: Yes Status: Acute Plan to address problem: Patient treated with Zithromax. (5) Cough Current Visit: Yes Status: Acute Plan to address problem: Robitussin DM 10 ml q 4 hours PRN for cough. (6) Fever Current Visit: Yes Status: Acute Qualifiers: Fever type: unspecified Qualified Code(s): R50.9 - Fever, unspecified Plan to address problem: Patient afebrile to day. (7) Renal failure Current Visit: Yes Status: Acute Qualifiers: Renal failure chronicity: acute Acute renal failure type: unspecified Qualified Code(s): N17.9 - Acute kidney failure, unspecified Plan to address problem: Management as per nephrology. Subjective Date of service: 04/13/20 Principal diagnosis: COVID-19 Interval history: Patient alert, awake. Still on High flow Oxygen ,Vapotherm , FIO2 100% and O2 saturation running 95%. No complaint of chest pain or shortness of breath at rest.. Patient afebrile and has mild leukocytosis. Chest xray 04/08/20 reported Moderate diffuse airspace disease throughout the lungs. Given this patient's history, atypical/viral pneumonia is suggested. Koenig virus antibody reported non reactive. Inflammatory markers Ferritin 926.3 LDH 815 Patient has CTA of chest 04/12/20 Small acute, occlusive bilateral PTE as above. Extensive bilateral airspace disease. Venous doppler studies of legs reported no DVT in either legs. Patient is on S/C Lovenox 100 mg S/C q 12 hours, and Decodron. Patient finished course of REMDESIVIR. Objective Vital Signs - 12hr 04/13/20 04/13/20 04/13/20 02:55 05:24 08:42 Temperature 98.6 F Pulse Rate 68 Respiratory 20 Rate Blood Pressure 146/94 O2 Sat by Pulse 92 91 94 Oximetry Constitutional: no acute distress, alert, other (mild respiratory distress on FFM BIPAP) Eyes: non-icteric Neck: supple, no lymphadenopathy, no JVD, other (large short neck) Effort: mildly labored Ascultation: Bilateral: diminished breath sounds, rhonchi Cardiovascular: regular rate and rhythm, other (S1,S2) Gastrointestinal: normoactive bowel sounds, soft, non-tender, non-distended Integumentary: normal Extremities: no cyanosis, no edema, pulses normal Neurologic: normal mental status, non-focal exam, pupils equal and round, motor strength normal and Psychiatric: mood appropriate, affect normal CBC and BMP: 04/13/20 05:54 04/12/20 08:17 ABG, PT/INR, D-dimer: ABG ABG pH 7.376 pH Units (7.350-7.450) 04/09/20 20:11 ABG pCO2 40.4 mm Hg 04/09/20 20:11 ABG pO2 67.1 mm Hg (80.0-90.0) L 04/09/20 20:11 ABG O2 Saturation 93.2 % (95.0-99.0) L 04/09/20 20:11 PT/INR, D-dimer PT 14.4 Sec. (12.2-14.9) 04/10/20 04:57 INR 1.14 (0.87-1.13) H 04/10/20 04:57 D-Dimer > 63076 ng/mlDDU (0-234) H 04/13/20 05:54 Abnormal lab findings: Abnormal Labs 04/08/20 04/08/20 04/08/20 23:06 23:06 23:06 WBC RBC 5.59 H Hgb 17.0 H Hct 48.5 H MCHC 35 H Lymph % (Auto) 4.5 L Keith % (Auto) 7.5 H Lymph # (Auto) 0.5 L Keith # (Auto) Seg Neutrophils % 87.4 H Seg Neuts % (Manual) Lymphocytes % (Manual) Nucleated RBC % Seg Neutrophils # 9.3 H Seg Neutrophils # Man Lymphocytes # (Manual) INR D-Dimer 574.04 H ABG pO2 ABG O2 Saturation Oxyhemoglobin Sodium 136 L Chloride Carbon Dioxide BUN 31 H Creatinine 1.9 H Glucose 132 H Ferritin Direct Bilirubin AST 107 H ALT 69 H Alkaline Phosphatase Lactate Dehydrogenase C-Reactive Protein Total Protein Albumin 3.5 L Urine WBC (Auto) Urine Creatinine Coronavirus (PCR) 04/08/20 04/08/20 04/09/20 23:06 23:06 09:55 WBC RBC Hgb Hct MCHC Lymph % (Auto) Keith % (Auto) Lymph # (Auto) Keith # (Auto) Seg Neutrophils % Seg Neuts % (Manual) Lymphocytes % (Manual) Nucleated RBC % Seg Neutrophils # Seg Neutrophils # Man Lymphocytes # (Manual) INR D-Dimer ABG pO2 ABG O2 Saturation Oxyhemoglobin Sodium Chloride Carbon Dioxide 17 L BUN 33 H Creatinine 2.0 H Glucose 131 H 135 H Ferritin 1068.0 H Direct Bilirubin AST ALT Alkaline Phosphatase Lactate Dehydrogenase 858 H C-Reactive Protein 24.30 H Total Protein Albumin Urine WBC (Auto) Urine Creatinine Coronavirus (PCR) 04/09/20 04/09/20 04/09/20 20:11 Unknown Unknown WBC RBC Hgb Hct MCHC Lymph % (Auto) Keith % (Auto) Lymph # (Auto) Keith # (Auto) Seg Neutrophils % Seg Neuts % (Manual) Lymphocytes % (Manual) Nucleated RBC % Seg Neutrophils # Seg Neutrophils # Man Lymphocytes # (Manual) INR D-Dimer ABG pO2 67.1 L ABG O2 Saturation 93.2 L Oxyhemoglobin 91.7 L Sodium Chloride Carbon Dioxide BUN Creatinine Glucose Ferritin Direct Bilirubin AST ALT Alkaline Phosphatase Lactate Dehydrogenase C-Reactive Protein Total Protein Albumin Urine WBC (Auto) 8.0 H Urine Creatinine 176.6 H Coronavirus (PCR) 04/10/20 04/10/20 04/10/20 04:57 04:57 04:57 WBC 12.3 H RBC Hgb Hct MCHC Lymph % (Auto) 4.8 L Keith % (Auto) 9.5 H Lymph # (Auto) 0.6 L Keith # (Auto) 1.2 H Seg Neutrophils % 85.6 H Seg Neuts % (Manual) Lymphocytes % (Manual) Nucleated RBC % Seg Neutrophils # 10.5 H Seg Neutrophils # Man Lymphocytes # (Manual) INR 1.14 H D-Dimer ABG pO2 ABG O2 Saturation Oxyhemoglobin Sodium 146 H Chloride 107.4 H Carbon Dioxide BUN 43 H Creatinine 1.4 H Glucose 137 H Ferritin Direct Bilirubin AST ALT Alkaline Phosphatase Lactate Dehydrogenase C-Reactive Protein Total Protein Albumin Urine WBC (Auto) Urine Creatinine Coronavirus (PCR) 04/10/20 04/11/20 04/11/20 04:57 09:54 09:54 WBC RBC Hgb Hct MCHC Lymph % (Auto) Keith % (Auto) Lymph # (Auto) Keith # (Auto) Seg Neutrophils % Seg Neuts % (Manual) Lymphocytes % (Manual) Nucleated RBC % Seg Neutrophils # Seg Neutrophils # Man Lymphocytes # (Manual) INR D-Dimer > 37583 H ABG pO2 ABG O2 Saturation Oxyhemoglobin Sodium Chloride Carbon Dioxide BUN Creatinine Glucose Ferritin Direct Bilirubin AST 50 H 76 H ALT 89 H Alkaline Phosphatase 134 H Lactate Dehydrogenase C-Reactive Protein Total Protein Albumin 3.2 L 3.0 L Urine WBC (Auto) Urine Creatinine Coronavirus (PCR) 04/11/20 04/11/20 04/11/20 09:54 09:54 09:54 WBC 11.8 H RBC 5.26 H Hgb 15.4 H Hct 46.1 H MCHC Lymph % (Auto) Keith % (Auto) Lymph # (Auto) Keith # (Auto) Seg Neutrophils % Seg Neuts % (Manual) 91.0 H Lymphocytes % (Manual) 6.0 L Nucleated RBC % 1.0 H Seg Neutrophils # Seg Neutrophils # Man 10.7 H Lymphocytes # (Manual) 0.7 L INR D-Dimer ABG pO2 ABG O2 Saturation Oxyhemoglobin Sodium Chloride 107.1 H Carbon Dioxide BUN 33 H Creatinine Glucose 111 H Ferritin 926.3 H Direct Bilirubin AST ALT Alkaline Phosphatase Lactate Dehydrogenase 815 H C-Reactive Protein 5.70 H Total Protein Albumin Urine WBC (Auto) Urine Creatinine Coronavirus (PCR) 04/12/20 04/12/20 04/12/20 08:17 08:17 08:17 WBC RBC 5.07 H Hgb Hct MCHC Lymph % (Auto) Keith % (Auto) Lymph # (Auto) Keith # (Auto) Seg Neutrophils % Seg Neuts % (Manual) 78.0 H Lymphocytes % (Manual) 10.0 L Nucleated RBC % Seg Neutrophils # Seg Neutrophils # Man 8.0 H Lymphocytes # (Manual) 1.0 L INR D-Dimer ABG pO2 ABG O2 Saturation Oxyhemoglobin Sodium Chloride Carbon Dioxide 31 H BUN 25 H Creatinine Glucose Ferritin Direct Bilirubin 0.3 H AST 63 H ALT 97 H Alkaline Phosphatase 156 H Lactate Dehydrogenase C-Reactive Protein Total Protein 6.1 L Albumin 3.3 L Urine WBC (Auto) Urine Creatinine Coronavirus (PCR) 04/12/20 04/13/20 04/13/20 Unknown 05:54 05:54 WBC RBC 5.21 H Hgb 15.6 H Hct 46.1 H MCHC Lymph % (Auto) Keith % (Auto) Lymph # (Auto) Keith # (Auto) Seg Neutrophils % Seg Neuts % (Manual) 92.0 H Lymphocytes % (Manual) 5.0 L Nucleated RBC % Seg Neutrophils # Seg Neutrophils # Man 10.1 H Lymphocytes # (Manual) 0.6 L INR D-Dimer > 00627 H ABG pO2 ABG O2 Saturation Oxyhemoglobin Sodium Chloride Carbon Dioxide BUN Creatinine Glucose Ferritin Direct Bilirubin AST ALT Alkaline Phosphatase Lactate Dehydrogenase C-Reactive Protein Total Protein Albumin Urine WBC (Auto) Urine Creatinine Coronavirus (PCR) Positive A Prior PFT's, U/S of legs: report reviewed, image reviewed Additional Studies: DUPLEX DOPPLER LOWER EXTREMITY VEINS, BILATERAL 04/12/20 INDICATION / CLINICAL INFORMATION: very high ddimer r/o DVT. TECHNIQUE: Duplex doppler imaging was performed through the veins of both lower extremities using venous compression and other maneuvers. COMPARISON: None available. FINDINGS: RIGHT COMMON FEMORAL VEIN: Negative. RIGHT FEMORAL VEIN: Negative. RIGHT POPLITEAL VEIN: Negative. RIGHT CALF VEINS: Negative. LEFT COMMON FEMORAL VEIN: Negative. LEFT FEMORAL VEIN: Negative. LEFT POPLITEAL VEIN: Negative. LEFT CALF VEINS: Negative. ADDITIONAL FINDINGS: None. IMPRESSION: 1. No sonographic evidence for DVT in either lower extremity.
--- NOTE | 2020-04-13 14:40 | Progress Note ---
Assessment and Plan - Patient Problems (1) Severe sepsis Current Visit: Yes Status: Acute Plan to address problem: Patient presented with tachypnea, leukocytosis, pneumonia on CXR, end organ dysfunction with RICKY and respiratory failure Secondary to COVID-19 pneumonia Infectious disease consulted 04/08 BC x2 no growth after 72 hours (2) Pneumonia due to COVID-19 virus Current Visit: Yes Status: Acute Plan to address problem: Pneumonia on CXR 04/09 COVID-19 antibody negative 04/12 Covid ID PCR positive Continue dexamethasone and remdesivir Anticoagulation for VTE treatment Prone position as needed Supplemental oxygen as needed Infectious disease and pulmonology consulted Trend inflammatory markers Droplet/contact isolation precautions Pulmonary hygiene OOB 3 times daily and as needed (3) Acute respiratory failure with hypoxia Current Visit: Yes Status: Acute Plan to address problem: Patient presented with hypoxia S/p BiPAP Currently on high flow nasal cannula Continue SPO2 monitoring Pulmonary hygiene Supplemental oxygen as needed, wean as tolerated (4) Pulmonary embolism Current Visit: Yes Status: Acute Plan to address problem: 04/12 CTA chest shows shows acute occlusive pulmonary embolism within the right lung base, occlusive pulmonary emboli but some within the left upper lobe segmental pulmonary artery, possible acute pulmonary embolism in the left lung base with no central saddle embolus. Extensive bilateral airspace disease with somewhat patchy distribution. Hepatic steatosis, right adrenal nodules may be adenomas Therapeutic anticoagulation with Lovenox Supplemental oxygen as needed Consider echo to evaluate for right heart strain if oxygenation is not improving (5) Transaminitis Current Visit: Yes Status: Acute Plan to address problem: Secondary to COVID-19/sepsis Monitor LFTs with remdesivir therapy 04/08 AST: 107, ALT 69, alkaline phos 125 04/10 AST 50, ALT 49, alkaline phos 99 04/11 AST 76, ALT 89, alkaline Светлана 144 04/12 AST 63, ALT 97, alkaline phos 156 (6) Diarrhea Current Visit: Yes Status: Acute Plan to address problem: Secondary to COVID-19 Supportive care (7) Elevated d-dimer Current Visit: Yes Status: Acute Plan to address problem: 04/08 D-dimer 574 04/12 D-dimer greater than 10,000 04/12 CTA chest shows acute occlusive pulmonary plasm in the right lung base, left upper lobe segmental pulmonary artery, possible acute pulmonary embolism in the left lung base 04/12 bilateral lower extremity Dopplers pending (8) DVT prophylaxis Current Visit: Yes Status: Acute Plan to address problem: SCDs to bilateral lower extremities while in bed 04/12 started on therapeutic anticoagulation History Interval history: This is a 55-year-old male with no significant medical history who presented to the emergency department on 04/08 with a 5-day history of generalized malaise, cough, fever, shortness of breath, loss of smell and taste and diarrhea. Patient is tested positive for COVID-19 at outpatient facility 3 days before admission. Upon arrival to the emergency department his SPO2 on room air was 85% and was subsequently placed on BiPAP. Work-up emergency department revealed sepsis (presented with hypoxia, hypotension, acute kidney injury and transaminitis likely secondary to bilateral pneumonia), bilateral pneumonia on CXR, acute kidney injury, diarrhea, acute hypoxic respiratory failure, transaminitis and the patient was placed on empiric antibiotics and started on steroids. In the emergency department he received 3.5 L of normal saline, azithromycin, cefepime and dexamethasone. Patient was admitted to the hospitalist service with a consult to nephrology, infectious disease and pulmonology. Patient still remains on high flow nasal cannula and he had a 14 beat of V. tach overnight. Stat potassium and magnesium ordered which is still pending at this time. Labs ordered for a.m. 04/09: Remains on BiPAP with 80% FiO2 with SPO2 of 94%. Infectious disease has started the patient on remdesivir. Patient will continue his azithromycin and his ceftriaxone was stopped due to cefepime allergy. ID has also ordered a SARS CoV-2 IgG to determine candidacy for convalescent plasma. We will continue to monitor. 04/10/2020. Patient currently with high flow nasal cannula 40 L/min O2 with FiO2 of 100%. Procalcitonin normal at 0.51. CRP elevated at 24.3, LDH 858 and ferritin 1068 and D-dimer 574. Trend inflammatory markers today. 04/11/2020. Patient currently with high flow nasal cannula 40 L/min O2 with FiO2 of 100%. Continue dexamethasone, remdesivir and prone positioning when possible. Continue to trend inflammatory markers. 04/12: Patient is on 25 L, 100% FiO2 high flow nasal cannula, D-dimer resulted as greater than 10,000 and CTA chest was obtained which showed small bilateral pulmonary embolism however bilateral lower extremities shows no acute DVT/SV. p atient's COVID-19 PCR was resent today. COVID-19 PCR positive Hospitalist Physical - Constitutional Vitals: Temp Pulse Resp BP Pulse Ox 98.7 F 72 18 127/72 94 04/13/20 12:39 04/13/20 12:39 04/13/20 12:39 04/13/20 12:39 04/13/20 13:39 General appearance: Present: no acute distress, well-nourished - EENT Eyes: Present: PERRL, EOM intact ENT: hearing intact, clear oral mucosa - Respiratory Respiratory effort: normal Respiratory: bilateral: diminished - Cardiovascular Rhythm: regular Heart Sounds: Present: S1 & S2. Absent: systolic murmur, diastolic murmur - Extremities Extremities: no ischemia, pulses intact, pulses symmetrical, No edema, normal temperature, normal color, Full ROM Peripheral Pulses: within normal limits - Abdominal General gastrointestinal: soft, non-tender, non-distended, normal bowel sounds - Integumentary Integumentary: Present: clear, warm, dry - Psychiatric Psychiatric: appropriate mood/affect, cooperative - Neurologic Neurologic: CNII-XII intact, no focal deficits, moves all extremities - Allied Health Allied health notes reviewed: nursing Results - Labs CBC & Chem 7: 04/13/20 05:54 04/12/20 08:17 Labs: Laboratory Last Values WBC 11.0 K/mm3 (4.5-11.0) 04/13/20 05:54 RBC 5.21 M/mm3 (3.65-5.03) H 04/13/20 05:54 Hgb 15.6 gm/dl (11.8-15.2) H 04/13/20 05:54 Hct 46.1 % (35.5-45.6) H 04/13/20 05:54 MCV 89 fl (84-94) 04/13/20 05:54 MCH 30 pg (28-32) 04/13/20 05:54 MCHC 34 % (32-34) 04/13/20 05:54 RDW 14.2 % (13.2-15.2) 04/13/20 05:54 Plt Count 271 K/mm3 (140-440) 04/13/20 05:54 Lymph % (Auto) 4.8 % (13.4-35.0) L 04/10/20 04:57 Chambers % (Auto) 9.5 % (0.0-7.3) H 04/10/20 04:57 Eos % (Auto) 0.0 % (0.0-4.3) 04/10/20 04:57 Baso % (Auto) 0.1 % (0.0-1.8) 04/10/20 04:57 Lymph # (Auto) 0.6 K/mm3 (1.2-5.4) L 04/10/20 04:57 Chambers # (Auto) 1.2 K/mm3 (0.0-0.8) H 04/10/20 04:57 Eos # (Auto) 0.0 K/mm3 (0.0-0.4) 04/10/20 04:57 Baso # (Auto) 0.0 K/mm3 (0.0-0.1) 04/10/20 04:57 Add Manual Diff Complete 04/13/20 05:54 Total Counted 100 04/13/20 05:54 Seg Neutrophils % Hand Ironer 04/13/20 05:54 Seg Neuts % (Manual) 92.0 % (40.0-70.0) H 04/13/20 05:54 Band Neutrophils % 3.0 % 04/12/20 08:17 Lymphocytes % (Manual) 5.0 % (13.4-35.0) L 04/13/20 05:54 Reactive Lymphs % (Man) 1.0 % 04/11/20 09:54 Monocytes % (Manual) 3.0 % (0.0-7.3) 04/13/20 05:54 Metamyelocytes % 1.0 % 04/12/20 08:17 Myelocytes % 1.0 % 04/12/20 08:17 Nucleated RBC % Not Reportable 04/13/20 05:54 Seg Neutrophils # 10.5 K/mm3 (1.8-7.7) H 04/10/20 04:57 Seg Neutrophils # Man 10.1 K/mm3 (1.8-7.7) H 04/13/20 05:54 Band Neutrophils # 0.0 K/mm3 04/13/20 05:54 Lymphocytes # (Manual) 0.6 K/mm3 (1.2-5.4) L 04/13/20 05:54 Abs React Lymphs (Man) 0.0 K/mm3 04/13/20 05:54 Monocytes # (Manual) 0.3 K/mm3 (0.0-0.8) 04/13/20 05:54 Eosinophils # (Manual) 0.0 K/mm3 (0.0-0.4) 04/13/20 05:54 Basophils # (Manual) 0.0 K/mm3 (0.0-0.1) 04/13/20 05:54 Metamyelocytes # 0.0 K/mm3 04/13/20 05:54 Myelocytes # 0.0 K/mm3 04/13/20 05:54 Promyelocytes # 0.0 K/mm3 04/13/20 05:54 Blast Cells # 0.0 K/mm3 04/13/20 05:54 WBC Morphology Not Reportable 04/13/20 05:54 Hypersegmented Neuts Not Reportable 04/13/20 05:54 Hyposegmented Neuts Not Reportable 04/13/20 05:54 Hypogranular Neuts Not Reportable 04/13/20 05:54 Smudge Cells Not Reportable 04/13/20 05:54 Toxic Granulation 1+ 04/13/20 05:54 Toxic Vacuolation Not Reportable 04/13/20 05:54 Dohle Bodies Not Reportable 04/13/20 05:54 Pelger-Huet Anomaly Not Reportable 04/13/20 05:54 Jason Rods Not Reportable 04/13/20 05:54 Platelet Estimate Consistent w auto 04/13/20 05:54 Clumped Platelets Not Reportable 04/13/20 05:54 Plt Clumps, EDTA Not Reportable 04/13/20 05:54 Large Platelets Not Reportable 04/13/20 05:54 Giant Platelets Not Reportable 04/13/20 05:54 Platelet Satelliting Not Reportable 04/13/20 05:54 Plt Morphology Comment Not Reportable 04/13/20 05:54 RBC Morphology Normal 04/13/20 05:54 Dimorphic RBCs Not Reportable 04/13/20 05:54 Polychromasia Not Reportable 04/13/20 05:54 Hypochromasia Not Reportable 04/13/20 05:54 Poikilocytosis Not Reportable 04/13/20 05:54 Anisocytosis Not Reportable 04/13/20 05:54 Microcytosis Not Reportable 04/13/20 05:54 Macrocytosis Not Reportable 04/13/20 05:54 Spherocytes Not Reportable 04/13/20 05:54 Pappenheimer Bodies Not Reportable 04/13/20 05:54 Sickle Cells Not Reportable 04/13/20 05:54 Target Cells Not Reportable 04/13/20 05:54 Tear Drop Cells Not Reportable 04/13/20 05:54 Ovalocytes Not Reportable 04/13/20 05:54 Helmet Cells Not Reportable 04/13/20 05:54 [place] Bodies Not Reportable 04/13/20 05:54 Alzada Rings Not Reportable 04/13/20 05:54 Archbald Cells Not Reportable 04/13/20 05:54 Bite Cells Not Reportable 04/13/20 05:54 Crenated Cell Not Reportable 04/13/20 05:54 Elliptocytes Not Reportable 04/13/20 05:54 Acanthocytes (Spur) Not Reportable 04/13/20 05:54 Rouleaux Not Reportable 04/13/20 05:54 Hemoglobin C Crystals Not Reportable 04/13/20 05:54 Schistocytes Not Reportable 04/13/20 05:54 Malaria parasites Not Reportable 04/13/20 05:54 Nehemias Bodies Not Reportable 04/13/20 05:54 Hem Pathologist Commnt No 04/13/20 05:54 PT 14.4 Sec. (12.2-14.9) 04/10/20 04:57 INR 1.14 (0.87-1.13) H 04/10/20 04:57 D-Dimer > 80032 ng/mlDDU (0-234) H 04/13/20 05:54 ABG pH 7.376 pH Units (7.350-7.450) 04/09/20 20:11 ABG pCO2 40.4 mm Hg 04/09/20 20:11 ABG pO2 67.1 mm Hg (80.0-90.0) L 04/09/20 20:11 ABG HCO3 23.2 mmol/L (20.0-26.0) 04/09/20 20:11 ABG O2 Saturation 93.2 % (95.0-99.0) L 04/09/20 20:11 ABG O2 Content 19.8 (0.0-44) 04/09/20 20:11 ABG Base Excess -1.8 mmol/L (-2.0-3.0) 04/09/20 20:11 ABG Hemoglobin 15.4 gm/dl (14.0-18.0) 04/09/20 20:11 ABG Carboxyhemoglobin 1.0 % (0.0-5.0) 04/09/20 20:11 ABG Methemoglobin 0.6 % (0.0-1.5) 04/09/20 20:11 Oxyhemoglobin 91.7 % (95.0-99.0) L 04/09/20 20:11 FiO2 80 % 04/09/20 20:11 Sodium 143 mmol/L (137-145) 04/12/20 08:17 Potassium 3.9 mmol/L (3.6-5.0) 04/12/20 08:17 Chloride 105.0 mmol/L (98-107) 04/12/20 08:17 Carbon Dioxide 31 mmol/L (22-30) H 04/12/20 08:17 Anion Gap 11 mmol/L 04/12/20 08:17 BUN 25 mg/dL (9-20) H 04/12/20 08:17 Creatinine 0.9 mg/dL (0.8-1.3) 04/12/20 08:17 Estimated GFR > 60 ml/min 04/12/20 08:17 BUN/Creatinine Ratio 28 % 04/12/20 08:17 Glucose 93 mg/dL (75-100) 04/12/20 08:17 Lactic Acid 1.50 mmol/L (0.7-2.0) 04/09/20 09:55 Calcium 8.4 mg/dL (8.4-10.2) 04/12/20 08:17 Ferritin 926.3 ng/mL (30.0-300.0) H 04/11/20 09:54 Total Bilirubin 0.80 mg/dL (0.1-1.2) 04/12/20 08:17 Direct Bilirubin 0.3 mg/dL (0-0.2) H 04/12/20 08:17 Indirect Bilirubin 0.5 mg/dL 04/12/20 08:17 AST 63 units/L (5-40) H 04/12/20 08:17 ALT 97 units/L (7-56) H 04/12/20 08:17 Alkaline Phosphatase 156 units/L (35-129) H 04/12/20 08:17 Lactate Dehydrogenase 815 units/L (91-180) H 04/11/20 09:54 C-Reactive Protein 5.70 mg/dL (0.00-1.30) H 04/11/20 09:54 Total Protein 6.1 g/dL (6.3-8.2) L 04/12/20 08:17 Albumin 3.3 g/dL (3.9-5) L 04/12/20 08:17 Albumin/Globulin Ratio 1.2 % 04/12/20 08:17 Procalcitonin 0.51 ng/mL (<0.15) 04/08/20 23:06 Urine Color Yellow (Yellow) 04/09/20 Unknown Urine Turbidity Clear (Clear) 04/09/20 Unknown Urine pH 5.0 (5.0-7.0) 04/09/20 Unknown Ur Specific [place] 1.018 (1.003-1.030) 04/09/20 Unknown Urine Protein <15 mg/dl mg/dL (Negative) 04/09/20 Unknown Urine Glucose (UA) Neg mg/dL (Negative) 04/09/20 Unknown Urine Ketones Neg mg/dL (Negative) 04/09/20 Unknown Urine Blood Neg (Negative) 04/09/20 Unknown Urine Nitrite Neg (Negative) 04/09/20 Unknown Urine Bilirubin Neg (Negative) 04/09/20 Unknown Urine Urobilinogen < 2.0 mg/dL (<2.0) 04/09/20 Unknown Ur Leukocyte Esterase Neg (Negative) 04/09/20 Unknown Urine WBC (Auto) 8.0 /HPF (0.0-6.0) H 04/09/20 Unknown Urine RBC (Auto) 3.0 /HPF (0.0-6.0) 04/09/20 Unknown U Epithel Cells (Auto) 1.0 /HPF (0-13.0) 04/09/20 Unknown Hyaline Casts 2 /LPF 04/09/20 Unknown Urine Mucus Few /HPF 04/09/20 Unknown Urine Eosinophils None seen (None Seen) 04/09/20 Unknown Urine Creatinine 176.6 mg/dL (0.1-20.0) H 04/09/20 Unknown Urine Sodium 35 mmol/L 04/09/20 Unknown Coronavirus (PCR) Positive (Negative) A 04/12/20 Unknown SARS-CoV-2 IgG Ab Nonreactive (NonReactive) 04/09/20 09:55 Blood Type O POSITIVE 04/09/20 19:43 Antibody Screen Negative 04/09/20 19:43 Microbiology: Microbiology 04/08/20 23:28 Peripheral/Venous Blood Culture - Preliminary NO GROWTH AFTER 4 DAYS 04/08/20 23:06 Peripheral/Venous Blood Culture - Preliminary NO GROWTH AFTER 4 DAYS [place]son/IV: Voiding Method Toilet IV Catheter Type [Right INT / Saline Lock Forearm] IV Catheter Type [Right Wrist] Peripheral IV IV Catheter Type [Left INT / Saline Lock Antecubital] IV Catheter Type [Right INT / Saline Lock Antecubital] Active Medications - Current Medications Current Medications: Generic Name Dose Route Start Last Admin Trade Name Freq PRN Reason Stop Dose Admin Acetaminophen 650 mg 04/09/20 02:25 Acetaminophen 325 Mg Tab PO Q6H PRN Pain MILD(1-3)/Fever >100.5/SARKAR Dexamethasone 6 mg 04/12/20 11:00 04/13/20 09:34 Dexamethasone 4 Mg/Ml Vial IV 04/16/20 23:59 6 mg Q12HR GLORIA Administration Dexamethasone 6 mg 04/17/20 10:00 Dexamethasone 4 Mg Tab PO 04/18/20 12:59 DAILY GLORIA Diphenhydramine HCl 25 mg 04/12/20 22:44 04/12/20 23:28 Diphenhydramine 25 Mg Cap PO 25 mg QHS PRN Administration Sleep Enoxaparin Sodium 100 mg 04/12/20 10:00 04/13/20 09:23 Enoxaparin 100 Mg/1 Ml Inj SUB-Q 100 mg Q12HR GLORIA Administration Protocol Guaifenesin 10 ml 04/10/20 13:00 04/13/20 05:36 Guaifenesin Dm 200/20 Mg Oral Liqd 10 Ml PO 10 ml Q4H PRN Administration Cough Hydrophilic Ointment 1 applic 04/11/20 08:00 Lip Therapy Vaseline TP DIRECT PRN Dry Lips REMDESIVIR 100 mg/ Sodium 250 mls @ 500 mls/hr 04/10/20 21:00 04/13/20 01:50 Chloride IV 04/13/20 21:29 500 mls/hr Q24HR@2100 GLORIA Administration Magnesium Hydroxide 30 ml 04/09/20 02:25 Magnesium Hydroxide (Mom) Oral Liqd Udc PO Q4H PRN Constipation Midodrine 5 mg 04/09/20 16:00 04/13/20 13:50 Midodrine 5 Mg Tab PO 5 mg TID@0800,1200,1600 GLORIA Administration Morphine Sulfate 2 mg 04/09/20 02:25 04/09/20 18:00 Morphine 2 Mg/1 Ml Inj IV 2 mg Q4H PRN Administration Pain, Moderate (4-6) Ondansetron HCl 4 mg 04/09/20 02:25 04/09/20 18:01 Ondansetron 4 Mg/2 Ml Inj IV 4 mg Q8H PRN Administration Nausea And Vomiting Sodium Chloride 10 ml 04/09/20 10:00 04/13/20 09:34 Sodium Chloride 0.9% 10 Ml Flush Syringe IV 10 ml BID GLORIA Administration Sodium Chloride 10 ml 04/09/20 02:25 Sodium Chloride 0.9% 10 Ml Flush Syringe IV PRN PRN LINE FLUSH Sodium Chloride 50 ml 04/09/20 09:30 04/13/20 01:50 Sodium Chloride 0.9% 50 Ml Ivpb IV 04/13/20 21:01 50 ml Q24HR@2100 GLORIA Administration Nutrition/Malnutrition Assess - Dietary Evaluation Nutrition/Malnutrition Findings: Nutrition Notes Start: 04/09/20 11:14 Freq: Status: Active Protocol: Document 04/09/20 11:14 EN (Rec: 04/09/20 11:16 EN [email or web address]) Co-Sign 04/09/20 11:14 LM Nutrition Notes Need for Assessment generated from: MD Order,Education Initial or Follow up Brief Note Current Diagnosis Acute Kidney Injury, Respiratory Failure Other Pertinent Diagnosis Sepsis, COVID-19 + Current Diet Regular Subjective/Other Information MD consult for diet education. Pt is on a regular diet. Per chart, pt had diarrhea upon admission and it has since improved. Pt is currently in ED. Nutrition Intervention Anticipated Discharge Needs: Regular diet Follow-Up By: 04/13/20 Additional Comments F/u for assessment and any diet education needs
[2020-04-13] MEDS: diphenhydrAMINE 25 MG CAP PO PRN (21:40)
[2020-04-13] MEDS: METOPROLOL TARTRATE 25 MG TAB PO SCH (21:40)
[2020-04-14] MEDS: guaiFENesin DM 200/20 MG ORAL LIQD 10 ML PO PRN (05:17)
[2020-04-14 06:59] LABS: BUN/Creatinine Ratio 28; Blood Urea Nitrogen 25 mg/dL (9-20); Calcium 8.6 mg/dL (8.4-10.2); Hemolysis Index 3
[2020-04-14] MEDS: MIDODRINE 5 MG TAB PO SCH ×3 (08:40→17:03)
--- NOTE | 2020-04-14 09:09 | Consultation ---
History of Present Illness Consult date: 04/14/20 Consult reason: other (NSVT) History of present illness: This is a 55-year old M with no prior medical history who is admitted with coronavirus pneumonia and hypotension. Initial labs showed acute kidney injury, and elevated transaminase. Further evaluation with a chest CTA revealed acute pulmonary embolism. Lower extremity duplex was negative for DVT. Yesterday, there was a short burst of NSVT seen on telemetry. There were no report of unusual shortness of breath, no chest pain and no palpitations. Patient remained asymptomatic. A cardiac consultation has been requested for asymptomatic NSVT. Past History Past Medical History: No medical history Past Surgical History: No surgical history Social history: no significant social history Family history: no significant family history Medications and Allergies Allergies Allergy/AdvReac Type Severity Reaction Status Date / Time cefepime Allergy Hives Verified 04/09/20 03:19 Active Meds: Active Medications Acetaminophen (Acetaminophen 325 Mg Tab) 650 mg PO Q6H PRN PRN Reason: Pain MILD(1-3)/Fever >100.5/SARKAR Dexamethasone (Dexamethasone 4 Mg/Ml Vial) 6 mg IV Q12HR GLORIA Stop: 04/16/20 23:59 Last Admin: 04/13/20 21:40 Dose: 6 mg Documented by: Dexamethasone (Dexamethasone 4 Mg Tab) 6 mg PO DAILY GLORIA Stop: 04/18/20 12:59 Diphenhydramine HCl (Diphenhydramine 25 Mg Cap) 25 mg PO QHS PRN PRN Reason: Sleep Last Admin: 04/13/20 21:40 Dose: 25 mg Documented by: Enoxaparin Sodium (Enoxaparin 100 Mg/1 Ml Inj) 100 mg SUB-Q Q12HR GLORIA; Protocol Last Admin: 04/13/20 21:40 Dose: 100 mg Documented by: Guaifenesin (Guaifenesin Dm 200/20 Mg Oral Liqd 10 Ml) 10 ml PO Q4H PRN PRN Reason: Cough Last Admin: 04/14/20 05:17 Dose: 10 ml Documented by: Hydrophilic Ointment (Lip Therapy Vaseline) 1 applic TP DIRECT PRN PRN Reason: Dry Lips Magnesium Hydroxide (Magnesium Hydroxide (Mom) Oral Liqd Udc) 30 ml PO Q4H PRN PRN Reason: Constipation Metoprolol Tartrate (Metoprolol Tartrate 25 Mg Tab) 25 mg PO BID [facility] Last Admin: 04/13/20 21:40 Dose: 25 mg Documented by: Midodrine (Midodrine 5 Mg Tab) 5 mg PO TID@0800,1200,1600 [facility] Last Admin: 04/14/20 08:40 Dose: 5 mg Documented by: Morphine Sulfate (Morphine 2 Mg/1 Ml Inj) 2 mg IV Q4H PRN PRN Reason: Pain, Moderate (4-6) Last Admin: 04/09/20 18:00 Dose: 2 mg Documented by: Ondansetron HCl (Ondansetron 4 Mg/2 Ml Inj) 4 mg IV Q8H PRN PRN Reason: Nausea And Vomiting Last Admin: 04/09/20 18:01 Dose: 4 mg Documented by: Sodium Chloride (Sodium Chloride 0.9% 10 Ml Flush Syringe) 10 ml IV BID [facility] Last Admin: 04/13/20 21:41 Dose: 10 ml Documented by: Sodium Chloride (Sodium Chloride 0.9% 10 Ml Flush Syringe) 10 ml IV PRN PRN PRN Reason: LINE FLUSH Physical Examination Vital Signs Pulse Resp BP Pulse Ox 92 H 32 H 104/56 91 04/08/20 21:35 04/08/20 21:35 04/08/20 21:35 04/08/20 21:35 Narrative exam: Deferred due to isolation protocol Results 04/13/20 05:54 04/14/20 05:46 Comprehensive Metabolic Panel 04/14/20 Range/Units 05:46 Sodium 142 (137-145) mmol/L Potassium 4.5 (3.6-5.0) mmol/L Chloride 106.9 (98-107) mmol/L Carbon Dioxide 29 (22-30) mmol/L BUN 25 H (9-20) mg/dL Creatinine 0.9 (0.8-1.3) mg/dL Glucose 145 H (75-100) mg/dL Calcium 8.6 (8.4-10.2) mg/dL Assessment and Plan Short burst of NSVT pt remained asymptomatic Coronavirus pneumonia Acute pulmonary embolism lower extremity duplex was negative for DVT Hypotension on midodrine Acute kidney injury -resolved Elevated transaminase Will check a TSH and magnesium.
--- NOTE | 2020-04-14 09:35 | Progress Note ---
Assessment and Plan Cultures: Blood culture no growth today SARS CoV2 PCR positive as an outpatient SARS Covid 2 IgG nonreactive Assessment: 52 years old male with history of with no significant past medical history, admitted on 04/08/2020 secondary to 5-day history of generalized malaise, cough, fever, shortness of breath, loss of smell and taste: #Severe sepsis: Remains with low-grade fever. Likely due to bilateral pneumonia. #Severe COVID pneumonia: Noted elevated inflammatory markers. Chest x-ray with bilateral airspace disease. Noted very high D-dimer >10,000. CTA shows acute bilateral pulmonary embolism. Venous ultrasound no DVT. Markers worsening, D- dimer> 10,000, ferritin 926. #Acute hypoxemic respiratory failure: Initial O2 sats dropped to 75%. Not better. Remains on high flow nasal cannula 100%, 25L. #Elevated LFTs: from COVID #RICKY: from COVID, improving #Acute diarrhea: For COVID-19 infection. #Very elevated D-dimer: Should rule out DVT/PE #Cefepime allergy: On admission patient developed hives #Nonsustained V. tach: per cards Recommendations: -Close monitoring transferred to IMCU -Pulmonary on board -On full dose anticoagulation for pulmonary embolism -Continue dexamethasone 6 mg IV/PO twice daily -Continue remdesivir total 5 days D4 of 5 -SARS-CoV-2 IgG negative, patient may benefit from Covid convalescent plasma -Monitor inflammatory markers - ferritin, Ddimer, CRP, LDH -Completed azithromycin -Monitor liver function test on Remdesivir -Continue anticoagulation per System Protocol -Prone positioning as possible All laboratory, cultures and imaging were reviewed. High risk evaluation, including intubation and Will follow Ave Morales MD Infectious Diseases Medical Aide [facility] [place] [facility] [id number] [phone] O [phone] Subjective Principal diagnosis: COVID-19 Objective - Constitutional Vitals: Vital Signs Temp Pulse Resp BP Pulse Ox 98.7 F 61 16 123/75 94 04/14/20 04:11 04/14/20 04:11 04/14/20 04:11 04/14/20 04:11 04/14/20 09:26 Temperature -Last 24 Hours Temperature 98.7 F Temperature 99.1 F Temperature 98.4 F Temperature 98.7 F - Labs CBC & Chem 7: 04/13/20 05:54 04/14/20 05:46 Labs: Abnormal lab results 04/13/20 04/14/20 Range/Units 05:54 05:46 Seg Neuts % (Manual) 92.0 H (40.0-70.0) % Lymphocytes % (Manual) 5.0 L (13.4-35.0) % Seg Neutrophils # Man 10.1 H (1.8-7.7) K/mm3 Lymphocytes # (Manual) 0.6 L (1.2-5.4) K/mm3 BUN 25 H (9-20) mg/dL Glucose 145 H (75-100) mg/dL
--- NOTE | 2020-04-14 09:39 | Progress Note ---
Assessment and Plan 1. Acute kidney injury: Likely vasomotor nephropathy in the setting of hypotension and COVID-19 infection. Renal US ordered. Monitor renal function. Creatinine level is 0.9 from 1.1 from 1.4 from 2 from 1.9. Avoid nephrotoxic agents. Meds dosage based on GFR. 2. FEN: Metabolic acidosis, improved, monitor. Encouraged PO fluids. Monitor lytes and volume status. 3. Acute respiratory failure with hypoxia: 2/2 COVID PNA. On HFNC O2. 4. Severe sepsis, POA: 2/2 COVID PNA. Followed by ID. 5. Severe COVID pneumonia: On IV Decadron and Remdesivir. Elevated inflammatory markers. 6. PE: Lovenox. 7. Elevated LFTs: 2/2 COVID. Subjective: Patient was seen and examined at the bedside. Examination: General appearance: well-developed, appears stated age, on HFNC O2 HEENT: Pupils reacting to light Neck: Trachea midline Respiratory: ctab Cardiology: regular, S1S2, no murmur Gastrointestinal: normoactive bowel sounds, no tenderness, ND Integumentary: no obvious rash Neurologic: AOX4, able to move extremities Ext: no edema Subjective Date of service: 04/14/20 Principal diagnosis: COVID-19 Objective - Vital Signs Vital signs: Vital Signs - 12hr 04/13/20 04/13/20 04/14/20 21:46 21:52 03:25 Temperature 99.1 F Pulse Rate 66 Respiratory 16 Rate Blood Pressure 134/81 O2 Sat by Pulse 93 95 92 Oximetry 04/14/20 04/14/20 04:11 09:26 Temperature 98.7 F Pulse Rate 61 Respiratory 16 Rate Blood Pressure 123/75 O2 Sat by Pulse 94 94 Oximetry - Lab 04/13/20 05:54 04/14/20 05:46 Most recent lab results ABG pH 7.376 pH Units (7.350-7.450) 04/09/20 20:11 ABG pCO2 40.4 mm Hg 04/09/20 20:11 ABG pO2 67.1 mm Hg (80.0-90.0) L 04/09/20 20:11 ABG HCO3 23.2 mmol/L (20.0-26.0) 04/09/20 20:11 ABG O2 Saturation 93.2 % (95.0-99.0) L 04/09/20 20:11 Calcium 8.6 mg/dL (8.4-10.2) 04/14/20 05:46 Urine Creatinine 176.6 mg/dL (0.1-20.0) H 04/09/20 Unknown Urine Sodium 35 mmol/L 04/09/20 Unknown Medications & Allergies - Medications Allergies/Adverse Reactions: Allergies cefepime Allergy (Verified 04/09/20 03:19) Hives Active Medications: Generic Name Dose Route Start Last Admin Trade Name Freq PRN Reason Stop Dose Admin Acetaminophen 650 mg 04/09/20 02:25 Acetaminophen 325 Mg Tab PO Q6H PRN Pain MILD(1-3)/Fever >100.5/SARKAR Dexamethasone 6 mg 04/12/20 11:00 04/13/20 21:40 Dexamethasone 4 Mg/Ml Vial IV 04/18/20 21:59 6 mg Q12HR GLORIA Administration Diphenhydramine HCl 25 mg 04/12/20 22:44 04/13/20 21:40 Diphenhydramine 25 Mg Cap PO 25 mg QHS PRN Administration Sleep Enoxaparin Sodium 100 mg 04/12/20 10:00 04/13/20 21:40 Enoxaparin 100 Mg/1 Ml Inj SUB-Q 100 mg Q12HR GLORIA Administration Protocol Guaifenesin 10 ml 04/10/20 13:00 04/14/20 05:17 Guaifenesin Dm 200/20 Mg Oral Liqd 10 Ml PO 10 ml Q4H PRN Administration Cough Hydrophilic Ointment 1 applic 04/11/20 08:00 Lip Therapy Vaseline TP DIRECT PRN Dry Lips Magnesium Hydroxide 30 ml 04/09/20 02:25 Magnesium Hydroxide (Mom) Oral Liqd Udc PO Q4H PRN Constipation Metoprolol Tartrate 25 mg 04/13/20 22:00 04/13/20 21:40 Metoprolol Tartrate 25 Mg Tab PO 25 mg BID GLORIA Administration Midodrine 5 mg 04/09/20 16:00 04/14/20 08:40 Midodrine 5 Mg Tab PO 5 mg TID@0800,1200,1600 GLORIA Administration Morphine Sulfate 2 mg 04/09/20 02:25 04/09/20 18:00 Morphine 2 Mg/1 Ml Inj IV 2 mg Q4H PRN Administration Pain, Moderate (4-6) Ondansetron HCl 4 mg 04/09/20 02:25 04/09/20 18:01 Ondansetron 4 Mg/2 Ml Inj IV 4 mg Q8H PRN Administration Nausea And Vomiting Sodium Chloride 10 ml 04/09/20 10:00 04/13/20 21:41 Sodium Chloride 0.9% 10 Ml Flush Syringe IV 10 ml BID GLORIA Administration Sodium Chloride 10 ml 04/09/20 02:25 Sodium Chloride 0.9% 10 Ml Flush Syringe IV PRN PRN LINE FLUSH
[2020-04-14] MEDS: ENOXAPARIN 100 MG/1 ML INJ SUB-Q SCH ×2 (10:22→21:54)
[2020-04-14] MEDS: dexAMETHasone 4 MG/ML VIAL IV SCH ×2 (10:22→21:54)
[2020-04-14] MEDS: METOPROLOL TARTRATE 25 MG TAB PO SCH ×2 (10:24→21:55)
--- NOTE | 2020-04-14 14:25 | Progress Note ---
Assessment and Plan - Patient Problems (1) Severe sepsis Current Visit: Yes Status: Acute Plan to address problem: Patient presented with tachypnea, leukocytosis, pneumonia on CXR, end organ dysfunction with RICKY and respiratory failure Secondary to COVID-19 pneumonia Infectious disease consulted 04/08 BC x2 no growth after 72 hours (2) Pneumonia due to COVID-19 virus Current Visit: Yes Status: Acute Plan to address problem: Pneumonia on CXR 04/09 COVID-19 antibody negative 04/12 Covid ID PCR positive Continue dexamethasone and remdesivir Anticoagulation for VTE treatment Prone position as needed Supplemental oxygen as needed Infectious disease and pulmonology consulted Trend inflammatory markers Droplet/contact isolation precautions Pulmonary hygiene OOB 3 times daily and as needed (3) Acute respiratory failure with hypoxia Current Visit: Yes Status: Acute Plan to address problem: Patient presented with hypoxia S/p BiPAP Currently on high flow nasal cannula Continue SPO2 monitoring Pulmonary hygiene Supplemental oxygen as needed, wean as tolerated (4) Pulmonary embolism Current Visit: Yes Status: Acute Plan to address problem: 04/12 CTA chest shows shows acute occlusive pulmonary embolism within the right lung base, occlusive pulmonary emboli but some within the left upper lobe segmental pulmonary artery, possible acute pulmonary embolism in the left lung base with no central saddle embolus. Extensive bilateral airspace disease with somewhat patchy distribution. Hepatic steatosis, right adrenal nodules may be adenomas Therapeutic anticoagulation with Lovenox Supplemental oxygen as needed Consider echo to evaluate for right heart strain if oxygenation is not improving (5) Transaminitis Current Visit: Yes Status: Acute Plan to address problem: Secondary to COVID-19/sepsis Monitor LFTs with remdesivir therapy 04/08 AST: 107, ALT 69, alkaline phos 125 04/10 AST 50, ALT 49, alkaline phos 99 04/11 AST 76, ALT 89, alkaline Светлана 144 04/12 AST 63, ALT 97, alkaline phos 156 (6) Diarrhea Current Visit: Yes Status: Resolved Plan to address problem: Secondary to COVID-19 Supportive care (7) Elevated d-dimer Current Visit: Yes Status: Acute Plan to address problem: 04/08 D-dimer 574 04/12 D-dimer greater than 10,000 04/12 CTA chest shows acute occlusive pulmonary plasm in the right lung base, left upper lobe segmental pulmonary artery, possible acute pulmonary embolism in the left lung base 04/12 bilateral lower extremity Dopplers shows no acute SVT/DVT (8) DVT prophylaxis Current Visit: Yes Status: Acute Plan to address problem: SCDs to bilateral lower extremities while in bed 04/12 started on therapeutic anticoagulation History Interval history: This is a 55-year-old male with no significant medical history who presented to the emergency department on 04/08 with a 5-day history of generalized malaise, cough, fever, shortness of breath, loss of smell and taste and diarrhea. Patient is tested positive for COVID-19 at outpatient facility 3 days before admission. Upon arrival to the emergency department his SPO2 on room air was 85% and was subsequently placed on BiPAP. Work-up emergency department revealed sepsis (presented with hypoxia, hypotension, acute kidney injury and transaminitis likely secondary to bilateral pneumonia), bilateral pneumonia on CXR, acute kidney injury, diarrhea, acute hypoxic respiratory failure, transaminitis and the patient was placed on empiric antibiotics and started on steroids. In the emergency department he received 3.5 L of normal saline, azithromycin, cefepime and dexamethasone. Patient was admitted to the hospitalist service with a consult to nephrology, infectious disease and pu lmonology. At the time of my examination patient still remains on high flow nasal cannula. He states that he is symptomatically better. Potassium level this morning is within normal limits. Patient did not have any more runs of V. tach overnight. His COVID-19 PCR is positive. 04/09: Remains on BiPAP with 80% FiO2 with SPO2 of 94%. Infectious disease has started the patient on remdesivir. Patient will continue his azithromycin and his ceftriaxone was stopped due to cefepime allergy. SARS CoV-2 IgG negative 04/10/2020. Patient currently with high flow nasal cannula 40 L/min O2 with FiO2 of 100%. Procalcitonin normal at 0.51. CRP elevated at 24.3, LDH 858 and ferritin 1068 and D-dimer 574. Trend inflammatory markers today. 04/11/2020. Patient currently with high flow nasal cannula 40 L/min O2 with FiO2 of 100%. Continue dexamethasone, remdesivir and prone positioning when possible. Continue to trend inflammatory markers. 04/12: Patient is on 25 L, 100% FiO2 high flow nasal cannula, D-dimer resulted as greater than 10,000 and CTA chest was obtained which showed small bilateral pulmonary embolism however bilateral lower extremities shows no acute DVT/SV. patient's 04/13: COVID-19 PCR was resent today. COVID-19 PCR positive: Patient still remains on high flow nasal cannula and he had a 14 beat of V. tach overnight. Stat potassium and magnesium ordered which is still pending at this time. Cardiology consulted Hospitalist Physical - Constitutional Vitals: Temp Pulse Resp BP Pulse Ox 98.7 F 89 16 123/75 94 04/14/20 04:11 04/14/20 10:00 04/14/20 04:11 04/14/20 04:11 04/14/20 13:38 General appearance: Present: no acute distress, well-nourished - EENT Eyes: Present: PERRL, EOM intact ENT: hearing intact, clear oral mucosa - Neck Neck: Present: normal ROM - Respiratory Respiratory effort: normal Respiratory: bilateral: diminished - Cardiovascular Rhythm: regular Heart Sounds: Present: S1 & S2. Absent: systolic murmur, diastolic murmur - Extremities Extremities: no ischemia, pulses intact, pulses symmetrical, No edema, normal temperature, normal color, Full ROM - Abdominal General gastrointestinal: soft, non-tender, non-distended, normal bowel sounds - Integumentary Integumentary: Present: clear, warm, dry - Psychiatric Psychiatric: appropriate mood/affect, cooperative - Neurologic Neurologic: CNII-XII intact, no focal deficits, moves all extremities Results - Labs CBC & Chem 7: 04/13/20 05:54 04/14/20 05:46 Labs: Laboratory Last Values WBC 11.0 K/mm3 (4.5-11.0) 04/13/20 05:54 RBC 5.21 M/mm3 (3.65-5.03) H 04/13/20 05:54 Hgb 15.6 gm/dl (11.8-15.2) H 04/13/20 05:54 Hct 46.1 % (35.5-45.6) H 04/13/20 05:54 MCV 89 fl (84-94) 04/13/20 05:54 MCH 30 pg (28-32) 04/13/20 05:54 MCHC 34 % (32-34) 04/13/20 05:54 RDW 14.2 % (13.2-15.2) 04/13/20 05:54 Plt Count 271 K/mm3 (140-440) 04/13/20 05:54 Lymph % (Auto) 4.8 % (13.4-35.0) L 04/10/20 04:57 [place] % (Auto) 9.5 % (0.0-7.3) H 04/10/20 04:57 Eos % (Auto) 0.0 % (0.0-4.3) 04/10/20 04:57 Baso % (Auto) 0.1 % (0.0-1.8) 04/10/20 04:57 Lymph # (Auto) 0.6 K/mm3 (1.2-5.4) L 04/10/20 04:57 [place] # (Auto) 1.2 K/mm3 (0.0-0.8) H 04/10/20 04:57 Eos # (Auto) 0.0 K/mm3 (0.0-0.4) 04/10/20 04:57 Baso # (Auto) 0.0 K/mm3 (0.0-0.1) 04/10/20 04:57 Add Manual Diff Complete 04/13/20 05:54 Total Counted 100 04/13/20 05:54 Seg Neutrophils % [employer]ant 04/13/20 05:54 Seg Neuts % (Manual) 92.0 % (40.0-70.0) H 04/13/20 05:54 Band Neutrophils % 3.0 % 04/12/20 08:17 Lymphocytes % (Manual) 5.0 % (13.4-35.0) L 04/13/20 05:54 Reactive Lymphs % (Man) 1.0 % 04/11/20 09:54 Monocytes % (Manual) 3.0 % (0.0-7.3) 04/13/20 05:54 Metamyelocytes % 1.0 % 04/12/20 08:17 Myelocytes % 1.0 % 04/12/20 08:17 Nucleated RBC % Not Reportable 04/13/20 05:54 Seg Neutrophils # 10.5 K/mm3 (1.8-7.7) H 04/10/20 04:57 Seg Neutrophils # Man 10.1 K/mm3 (1.8-7.7) H 04/13/20 05:54 Band Neutrophils # 0.0 K/mm3 04/13/20 05:54 Lymphocytes # (Manual) 0.6 K/mm3 (1.2-5.4) L 04/13/20 05:54 Abs React Lymphs (Man) 0.0 K/mm3 04/13/20 05:54 Monocytes # (Manual) 0.3 K/mm3 (0.0-0.8) 04/13/20 05:54 Eosinophils # (Manual) 0.0 K/mm3 (0.0-0.4) 04/13/20 05:54 Basophils # (Manual) 0.0 K/mm3 (0.0-0.1) 04/13/20 05:54 Metamyelocytes # 0.0 K/mm3 04/13/20 05:54 Myelocytes # 0.0 K/mm3 04/13/20 05:54 Promyelocytes # 0.0 K/mm3 04/13/20 05:54 Blast Cells # 0.0 K/mm3 04/13/20 05:54 WBC Morphology Not Reportable 04/13/20 05:54 Hypersegmented Neuts Not Reportable 04/13/20 05:54 Hyposegmented Neuts Not Reportable 04/13/20 05:54 Hypogranular Neuts Not Reportable 04/13/20 05:54 Smudge Cells Not Reportable 04/13/20 05:54 Toxic Granulation 1+ 04/13/20 05:54 Toxic Vacuolation Not Reportable 04/13/20 05:54 Dohle Bodies Not Reportable 04/13/20 05:54 Pelger-Huet Anomaly Not Reportable 04/13/20 05:54 Jason Rods Not Reportable 04/13/20 05:54 Platelet Estimate Consistent w auto 04/13/20 05:54 Clumped Platelets Not Reportable 04/13/20 05:54 Plt Clumps, EDTA Not Reportable 04/13/20 05:54 Large Platelets Not Reportable 04/13/20 05:54 Giant Platelets Not Reportable 04/13/20 05:54 Platelet Satelliting Not Reportable 04/13/20 05:54 Plt Morphology Comment Not Reportable 04/13/20 05:54 RBC Morphology Normal 04/13/20 05:54 Dimorphic RBCs Not Reportable 04/13/20 05:54 Polychromasia Not Reportable 04/13/20 05:54 Hypochromasia Not Reportable 04/13/20 05:54 Poikilocytosis Not Reportable 04/13/20 05:54 Anisocytosis Not Reportable 04/13/20 05:54 Microcytosis Not Reportable 04/13/20 05:54 Macrocytosis Not Reportable 04/13/20 05:54 Spherocytes Not Reportable 04/13/20 05:54 Pappenheimer Bodies Not Reportable 04/13/20 05:54 Sickle Cells Not Reportable 04/13/20 05:54 Target Cells Not Reportable 04/13/20 05:54 Tear Drop Cells Not Reportable 04/13/20 05:54 Ovalocytes Not Reportable 04/13/20 05:54 Helmet Cells Not Reportable 04/13/20 05:54 [place] Bodies Not Reportable 04/13/20 05:54 [place] Rings Not Reportable 04/13/20 05:54 Janessa Cells Not Reportable 04/13/20 05:54 Bite Cells Not Reportable 04/13/20 05:54 Crenated Cell Not Reportable 04/13/20 05:54 Elliptocytes Not Reportable 04/13/20 05:54 Acanthocytes (Spur) Not Reportable 04/13/20 05:54 Rouleaux Not Reportable 04/13/20 05:54 Hemoglobin C Crystals Not Reportable 04/13/20 05:54 Schistocytes Not Reportable 04/13/20 05:54 Malaria parasites Not Reportable 04/13/20 05:54 Nehemias Bodies Not Reportable 04/13/20 05:54 Hem Pathologist Commnt No 04/13/20 05:54 PT 14.4 Sec. (12.2-14.9) 04/10/20 04:57 INR 1.14 (0.87-1.13) H 04/10/20 04:57 D-Dimer > 76102 ng/mlDDU (0-234) H 04/13/20 05:54 ABG pH 7.376 pH Units (7.350-7.450) 04/09/20 20:11 ABG pCO2 40.4 mm Hg 04/09/20 20:11 ABG pO2 67.1 mm Hg (80.0-90.0) L 04/09/20 20:11 ABG HCO3 23.2 mmol/L (20.0-26.0) 04/09/20 20:11 ABG O2 Saturation 93.2 % (95.0-99.0) L 04/09/20 20:11 ABG O2 Content 19.8 (0.0-44) 04/09/20 20:11 ABG Base Excess -1.8 mmol/L (-2.0-3.0) 04/09/20 20:11 ABG Hemoglobin 15.4 gm/dl (14.0-18.0) 04/09/20 20:11 ABG Carboxyhemoglobin 1.0 % (0.0-5.0) 04/09/20 20:11 ABG Methemoglobin 0.6 % (0.0-1.5) 04/09/20 20:11 Oxyhemoglobin 91.7 % (95.0-99.0) L 04/09/20 20:11 FiO2 80 % 04/09/20 20:11 Sodium 142 mmol/L (137-145) 04/14/20 05:46 Potassium 4.5 mmol/L (3.6-5.0) 04/14/20 05:46 Chloride 106.9 mmol/L (98-107) 04/14/20 05:46 Carbon Dioxide 29 mmol/L (22-30) 04/14/20 05:46 Anion Gap 11 mmol/L 04/14/20 05:46 BUN 25 mg/dL (9-20) H 04/14/20 05:46 Creatinine 0.9 mg/dL (0.8-1.3) 04/14/20 05:46 Estimated GFR > 60 ml/min 04/14/20 05:46 BUN/Creatinine Ratio 28 % 04/14/20 05:46 Glucose 145 mg/dL (75-100) H 04/14/20 05:46 POC Glucose 105 mg/dL (70-105) 04/13/20 16:20 Lactic Acid 1.50 mmol/L (0.7-2.0) 04/09/20 09:55 Calcium 8.6 mg/dL (8.4-10.2) 04/14/20 05:46 Ferritin 926.3 ng/mL (30.0-300.0) H 04/11/20 09:54 Total Bilirubin 0.80 mg/dL (0.1-1.2) 04/12/20 08:17 Direct Bilirubin 0.3 mg/dL (0-0.2) H 04/12/20 08:17 Indirect Bilirubin 0.5 mg/dL 04/12/20 08:17 AST 63 units/L (5-40) H 04/12/20 08:17 ALT 97 units/L (7-56) H 04/12/20 08:17 Alkaline Phosphatase 156 units/L (35-129) H 04/12/20 08:17 Lactate Dehydrogenase 815 units/L (91-180) H 04/11/20 09:54 C-Reactive Protein 5.70 mg/dL (0.00-1.30) H 04/11/20 09:54 Total Protein 6.1 g/dL (6.3-8.2) L 04/12/20 08:17 Albumin 3.3 g/dL (3.9-5) L 04/12/20 08:17 Albumin/Globulin Ratio 1.2 % 04/12/20 08:17 Procalcitonin 0.51 ng/mL (<0.15) 04/08/20 23:06 Urine Color Yellow (Yellow) 04/09/20 Unknown Urine Turbidity Clear (Clear) 04/09/20 Unknown Urine pH 5.0 (5.0-7.0) 04/09/20 Unknown Ur Specific [place] 1.018 (1.003-1.030) 04/09/20 Unknown Urine Protein <15 mg/dl mg/dL (Negative) 04/09/20 Unknown Urine Glucose (UA) Neg mg/dL (Negative) 04/09/20 Unknown Urine Ketones Neg mg/dL (Negative) 04/09/20 Unknown Urine Blood Neg (Negative) 04/09/20 Unknown Urine Nitrite Neg (Negative) 04/09/20 Unknown Urine Bilirubin Neg (Negative) 04/09/20 Unknown Urine Urobilinogen < 2.0 mg/dL (<2.0) 04/09/20 Unknown Ur Leukocyte Esterase Neg (Negative) 04/09/20 Unknown Urine WBC (Auto) 8.0 /HPF (0.0-6.0) H 04/09/20 Unknown Urine RBC (Auto) 3.0 /HPF (0.0-6.0) 04/09/20 Unknown U Epithel Cells (Auto) 1.0 /HPF (0-13.0) 04/09/20 Unknown Hyaline Casts 2 /LPF 04/09/20 Unknown Urine Mucus Few /HPF 04/09/20 Unknown Urine Eosinophils None seen (None Seen) 04/09/20 Unknown Urine Creatinine 176.6 mg/dL (0.1-20.0) H 04/09/20 Unknown Urine Sodium 35 mmol/L 04/09/20 Unknown Coronavirus (PCR) Positive (Negative) A 04/12/20 Unknown SARS-CoV-2 IgG Ab Nonreactive (NonReactive) 04/09/20 09:55 Blood Type O POSITIVE 04/09/20 19:43 Antibody Screen Negative 04/09/20 19:43 Microbiology: Microbiology 04/08/20 23:28 Peripheral/Venous Blood Culture - Final NO GROWTH AFTER 5 DAYS 04/08/20 23:06 Peripheral/Venous Blood Culture - Final NO GROWTH AFTER 5 DAYS [place]/IV: Voiding Method Urinal IV Catheter Type [Right INT / Saline Lock Forearm] IV Catheter Type [Right Wrist] Peripheral IV IV Catheter Type [Left INT / Saline Lock Antecubital] IV Catheter Type [Right INT / Saline Lock Antecubital] Active Medications - Current Medications Current Medications: Generic Name Dose Route Start Last Admin Trade Name Freq PRN Reason Stop Dose Admin Acetaminophen 650 mg 04/09/20 02:25 Acetaminophen 325 Mg Tab PO Q6H PRN Pain MILD(1-3)/Fever >100.5/SARKAR Dexamethasone 6 mg 04/12/20 11:00 04/14/20 10:22 Dexamethasone 4 Mg/Ml Vial IV 04/18/20 21:59 6 mg Q12HR GLORIA Administration Diphenhydramine HCl 25 mg 04/12/20 22:44 04/13/20 21:40 Diphenhydramine 25 Mg Cap PO 25 mg QHS PRN Administration Sleep Enoxaparin Sodium 100 mg 04/12/20 10:00 04/14/20 10:22 Enoxaparin 100 Mg/1 Ml Inj SUB-Q 100 mg Q12HR GLORIA Administration Protocol Guaifenesin 10 ml 04/10/20 13:00 04/14/20 05:17 Guaifenesin Dm 200/20 Mg Oral Liqd 10 Ml PO 10 ml Q4H PRN Administration Cough Hydrophilic Ointment 1 applic 04/11/20 08:00 Lip Therapy Vaseline TP DIRECT PRN Dry Lips Magnesium Hydroxide 30 ml 04/09/20 02:25 Magnesium Hydroxide (Mom) Oral Liqd Udc PO Q4H PRN Constipation Metoprolol Tartrate 25 mg 04/13/20 22:00 04/14/20 10:24 Metoprolol Tartrate 25 Mg Tab PO Not Given BID GLORIA Midodrine 5 mg 04/09/20 16:00 04/14/20 13:34 Midodrine 5 Mg Tab PO 5 mg TID@0800,1200,1600 GLORIA Administration Morphine Sulfate 2 mg 04/09/20 02:25 04/09/20 18:00 Morphine 2 Mg/1 Ml Inj IV 2 mg Q4H PRN Administration Pain, Moderate (4-6) Ondansetron HCl 4 mg 04/09/20 02:25 04/09/20 18:01 Ondansetron 4 Mg/2 Ml Inj IV 4 mg Q8H PRN Administration Nausea And Vomiting Sodium Chloride 10 ml 04/09/20 10:00 04/14/20 10:24 Sodium Chloride 0.9% 10 Ml Flush Syringe IV 10 ml BID GLORIA Administration Sodium Chloride 10 ml 04/09/20 02:25 Sodium Chloride 0.9% 10 Ml Flush Syringe IV PRN PRN LINE FLUSH Nutrition/Malnutrition Assess - Dietary Evaluation Nutrition/Malnutrition Findings: Nutrition Notes Start: 04/09/20 11:14 Freq: Status: Active Protocol: Document 04/13/20 16:01 CW (Rec: 04/13/20 16:11 CW [email or web address]) Co-Sign 04/13/20 16:01 MK Nutrition Notes Initial or Follow up Brief Note Current Diagnosis Acute Kidney Injury, Respiratory Failure Other Pertinent Diagnosis Sepsis, COVID-19 + Current Diet Regular Height 6 ft Weight 114.3 kg [place] Body Weight (kg) 80.90 BMI 34.2 Weight Status Obese Subjective/Other Information FU for MD diet education order . Pt is COVID postive. Pt answered room phone and reported eating 75% of lunch today. Per chart pt ate 100% breakfast and 75% lunch on . Pt is open to diet education and asks questions about low sodium. Gave RN pt diet education handouts. Per RN, pt preferences recorded. Pt does not report drinking ONS. #1 Nutrition Diagnosis Food and nutrition-related knowledge deficit Etiology RICKY As Evidenced by Signs and Symptoms pt had questions about sodium Nutrition Intervention Teaching Recipient Patient Learning Readiness Good Teaching Methods Discussion,Handout Education Handouts Provided AND RICKY Barriers to Learning Environmental RD phone number provided Yes Patient aware of follow up options Yes Actions To Overcome Barriers Collaboration with Other Providers Anticipated Discharge Needs: Regular Revisit per MD consult or patient Sign Off request:
--- NOTE | 2020-04-14 14:28 | Progress Note ---
Assessment and Plan Patient alert, awake. Still on High flow Oxygen ,Vapotherm , FIO2 100% and O2 saturation running 93%. No complaint of chest pain or shortness of breath at rest. Still complaining shortness of breath on exertion. Patient running low grade temp at times and has mild leukocytosis. Chest xray 04/08/20 reported Moderate diffuse airspace disease throughout the lungs. Given this patient's history, atypical/viral pneumonia is suggested. Koenig virus antibody reported non reactive. Inflammatory markers Ferritin 926.3 LDH 815 Patient has CTA of chest 04/12/20 Small acute, occlusive bilateral PTE . Extensive bilateral airspace disease. Venous doppler studies of legs reported no DVT in either legs. Patient is on S/C Lovenox 100 mg S/C q 12 hours, and Decodron. Patient finished course of REMDESIVIR. - Patient Problems (1) Respiratory failure Current Visit: Yes Status: Acute Qualifiers: Chronicity: acute Respiratory failure complication: hypoxia Qualified Code(s): J96.01 - Acute respiratory failure with hypoxia Plan to address problem: Patient is oh high flow O2 100%, FIO2. (2) COVID-19 Current Visit: Yes Status: Acute Plan to address problem: Koenig virus antibody reported negative. Patient is on S/C Heparin, and Decodron. Patient finished course of REMDESIVIR. (3) Pulmonary embolism Current Visit: Yes Status: Acute Plan to address problem: Patient is on Lovenox 100 mg S/C q 12 hours. (4) Bilateral pneumonia Current Visit: Yes Status: Acute Plan to address problem: Patient treated with Zithromax. (5) Cough Current Visit: Yes Status: Acute Plan to address problem: Robitussin DM 10 ml q 4 hours PRN for cough. (6) Fever Current Visit: Yes Status: Acute Qualifiers: Fever type: unspecified Qualified Code(s): R50.9 - Fever, unspecified Plan to address problem: Patient running low grade fever at times.. (7) Renal failure Current Visit: Yes Status: Acute Qualifiers: Renal failure chronicity: acute Acute renal failure type: unspecified Adonis lified Code(s): N17.9 - Acute kidney failure, unspecified Plan to address problem: Management as per nephrology. Subjective Date of service: 04/14/20 Principal diagnosis: COVID-19 Interval history: Patient alert, awake. Still on High flow Oxygen ,Vapotherm , FIO2 100% and O2 saturation running 93%. No complaint of chest pain or shortness of breath at rest. Still complaining shortness of breath on exertion. Patient running low grade temp at times and has mild leukocytosis. Chest xray 04/08/20 reported Moderate diffuse airspace disease throughout the lungs. Given this patient's history, atypical/viral pneumonia is suggested. Koenig virus antibody reported non reactive. Inflammatory markers Ferritin 926.3 LDH 815 Patient has CTA of chest 04/12/20 Small acute, occlusive bilateral PTE . Extensive bilateral airspace disease. Venous doppler studies of legs reported no DVT in either legs. Patient is on S/C Lovenox 100 mg S/C q 12 hours, and Decodron. Patient finished course of REMDESIVIR. Objective Vital Signs - 12hr 04/14/20 04/14/20 04/14/20 03:25 04:11 09:26 Temperature 98.7 F Pulse Rate 61 Respiratory 16 Rate Blood Pressure 123/75 O2 Sat by Pulse 92 94 94 Oximetry 04/14/20 04/14/20 10:00 13:38 Temperature Pulse Rate 89 Respiratory Rate Blood Pressure O2 Sat by Pulse 94 Oximetry Constitutional: no acute distress, alert, other (mild respiratory distress on FFM BIPAP) Eyes: non-icteric Neck: supple, no lymphadenopathy, no JVD, other (large short neck) Effort: mildly labored Ascultation: Bilateral: diminished breath sounds, rhonchi Cardiovascular: regular rate and rhythm, other (S1,S2) Gastrointestinal: normoactive bowel sounds, soft, non-tender, non-distended Integumentary: normal Extremities: no cyanosis, no edema, pulses normal Neurologic: normal mental status, non-focal exam, pupils equal and round, motor strength normal and Psychiatric: mood appropriate, affect normal CBC and BMP: 04/13/20 05:54 04/14/20 05:46 ABG, PT/INR, D-dimer: ABG ABG pH 7.376 pH Units (7.350-7.450) 04/09/20 20:11 ABG pCO2 40.4 mm Hg 04/09/20 20:11 ABG pO2 67.1 mm Hg (80.0-90.0) L 04/09/20 20:11 ABG O2 Saturation 93.2 % (95.0-99.0) L 04/09/20 20:11 PT/INR, D-dimer PT 14.4 Sec. (12.2-14.9) 04/10/20 04:57 INR 1.14 (0.87-1.13) H 04/10/20 04:57 D-Dimer > 99401 ng/mlDDU (0-234) H 04/13/20 05:54 Abnormal lab findings: Abnormal Labs 04/08/20 04/08/20 04/08/20 23:06 23:06 23:06 WBC RBC 5.59 H Hgb 17.0 H Hct 48.5 H MCHC 35 H Lymph % (Auto) 4.5 L Parker % (Auto) 7.5 H Lymph # (Auto) 0.5 L Parker # (Auto) Seg Neutrophils % 87.4 H Seg Neuts % (Manual) Lymphocytes % (Manual) Nucleated RBC % Seg Neutrophils # 9.3 H Seg Neutrophils # Man Lymphocytes # (Manual) INR D-Dimer 574.04 H ABG pO2 ABG O2 Saturation Oxyhemoglobin Sodium 136 L Chloride Carbon Dioxide BUN 31 H Creatinine 1.9 H Glucose 132 H Ferritin Direct Bilirubin AST 107 H ALT 69 H Alkaline Phosphatase Lactate Dehydrogenase C-Reactive Protein Total Protein Albumin 3.5 L Urine WBC (Auto) Urine Creatinine Coronavirus (PCR) 04/08/20 04/08/20 04/09/20 23:06 23:06 09:55 WBC RBC Hgb Hct MCHC Lymph % (Auto) Parker % (Auto) Lymph # (Auto) Parker # (Auto) Seg Neutrophils % Seg Neuts % (Manual) Lymphocytes % (Manual) Nucleated RBC % Seg Neutrophils # Seg Neutrophils # Man Lymphocytes # (Manual) INR D-Dimer ABG pO2 ABG O2 Saturation Oxyhemoglobin Sodium Chloride Carbon Dioxide 17 L BUN 33 H Creatinine 2.0 H Glucose 131 H 135 H Ferritin 1068.0 H Direct Bilirubin AST ALT Alkaline Phosphatase Lactate Dehydrogenase 858 H C-Reactive Protein 24.30 H Total Protein Albumin Urine WBC (Auto) Urine Creatinine Coronavirus (PCR) 04/09/20 04/09/20 04/09/20 20:11 Unknown Unknown WBC RBC Hgb Hct MCHC Lymph % (Auto) Parker % (Auto) Lymph # (Auto) Parker # (Auto) Seg Neutrophils % Seg Neuts % (Manual) Lymphocytes % (Manual) Nucleated RBC % Seg Neutrophils # Seg Neutrophils # Man Lymphocytes # (Manual) INR D-Dimer ABG pO2 67.1 L ABG O2 Saturation 93.2 L Oxyhemoglobin 91.7 L Sodium Chloride Carbon Dioxide BUN Creatinine Glucose Ferritin Direct Bilirubin AST ALT Alkaline Phosphatase Lactate Dehydrogenase C-Reactive Protein Total Protein Albumin Urine WBC (Auto) 8.0 H Urine Creatinine 176.6 H Coronavirus (PCR) 04/10/20 04/10/20 04/10/20 04:57 04:57 04:57 WBC 12.3 H RBC Hgb Hct MCHC Lymph % (Auto) 4.8 L Parker % (Auto) 9.5 H Lymph # (Auto) 0.6 L Parker # (Auto) 1.2 H Seg Neutrophils % 85.6 H Seg Neuts % (Manual) Lymphocytes % (Manual) Nucleated RBC % Seg Neutrophils # 10.5 H Seg Neutrophils # Man Lymphocytes # (Manual) INR 1.14 H D-Dimer ABG pO2 ABG O2 Saturation Oxyhemoglobin Sodium 146 H Chloride 107.4 H Carbon Dioxide BUN 43 H Creatinine 1.4 H Glucose 137 H Ferritin Direct Bilirubin AST ALT Alkaline Phosphatase Lactate Dehydrogenase C-Reactive Protein Total Protein Albumin Urine WBC (Auto) Urine Creatinine Coronavirus (PCR) 04/10/20 04/11/20 04/11/20 04:57 09:54 09:54 WBC RBC Hgb Hct MCHC Lymph % (Auto) Parker % (Auto) Lymph # (Auto) Parker # (Auto) Seg Neutrophils % Seg Neuts % (Manual) Lymphocytes % (Manual) Nucleated RBC % Seg Neutrophils # Seg Neutrophils # Man Lymphocytes # (Manual) INR D-Dimer > 80631 H ABG pO2 ABG O2 Saturation Oxyhemoglobin Sodium Chloride Carbon Dioxide BUN Creatinine Glucose Ferritin Direct Bilirubin AST 50 H 76 H ALT 89 H Alkaline Phosphatase 134 H Lactate Dehydrogenase C-Reactive Protein Total Protein Albumin 3.2 L 3.0 L Urine WBC (Auto) Urine Creatinine Coronavirus (PCR) 04/11/20 04/11/20 04/11/20 09:54 09:54 09:54 WBC 11.8 H RBC 5.26 H Hgb 15.4 H Hct 46.1 H MCHC Lymph % (Auto) Parker % (Auto) Lymph # (Auto) Parker # (Auto) Seg Neutrophils % Seg Neuts % (Manual) 91.0 H Lymphocytes % (Manual) 6.0 L Nucleated RBC % 1.0 H Seg Neutrophils # Seg Neutrophils # Man 10.7 H Lymphocytes # (Manual) 0.7 L INR D-Dimer ABG pO2 ABG O2 Saturation Oxyhemoglobin Sodium Chloride 107.1 H Carbon Dioxide BUN 33 H Creatinine Glucose 111 H Ferritin 926.3 H Direct Bilirubin AST ALT Alkaline Phosphatase Lactate Dehydrogenase 815 H C-Reactive Protein 5.70 H Total Protein Albumin Urine WBC (Auto) Urine Creatinine Coronavirus (PCR) 04/12/20 04/12/20 04/12/20 08:17 08:17 08:17 WBC RBC 5.07 H Hgb Hct MCHC Lymph % (Auto) Parker % (Auto) Lymph # (Auto) Parker # (Auto) Seg Neutrophils % Seg Neuts % (Manual) 78.0 H Lymphocytes % (Manual) 10.0 L Nucleated RBC % Seg Neutrophils # Seg Neutrophils # Man 8.0 H Lymphocytes # (Manual) 1.0 L INR D-Dimer ABG pO2 ABG O2 Saturation Oxyhemoglobin Sodium Chloride Carbon Dioxide 31 H BUN 25 H Creatinine Glucose Ferritin Direct Bilirubin 0.3 H AST 63 H ALT 97 H Alkaline Phosphatase 156 H Lactate Dehydrogenase C-Reactive Protein Total Protein 6.1 L Albumin 3.3 L Urine WBC (Auto) Urine Creatinine Coronavirus (PCR) 04/12/20 04/13/20 04/13/20 Unknown 05:54 05:54 WBC RBC 5.21 H Hgb 15.6 H Hct 46.1 H MCHC Lymph % (Auto) Parker % (Auto) Lymph # (Auto) Parker # (Auto) Seg Neutrophils % Seg Neuts % (Manual) 92.0 H Lymphocytes % (Manual) 5.0 L Nucleated RBC % Seg Neutrophils # Seg Neutrophils # Man 10.1 H Lymphocytes # (Manual) 0.6 L INR D-Dimer > 81018 H ABG pO2 ABG O2 Saturation Oxyhemoglobin Sodium Chloride Carbon Dioxide BUN Creatinine Glucose Ferritin Direct Bilirubin AST ALT Alkaline Phosphatase Lactate Dehydrogenase C-Reactive Protein Total Protein Albumin Urine WBC (Auto) Urine Creatinine Coronavirus (PCR) Positive A 04/14/20 05:46 WBC RBC Hgb Hct MCHC Lymph % (Auto) Parker % (Auto) Lymph # (Auto) Parker # (Auto) Seg Neutrophils % Seg Neuts % (Manual) Lymphocytes % (Manual) Nucleated RBC % Seg Neutrophils # Seg Neutrophils # Man Lymphocytes # (Manual) INR D-Dimer ABG pO2 ABG O2 Saturation Oxyhemoglobin Sodium Chloride Carbon Dioxide BUN 25 H Creatinine Glucose 145 H Ferritin Direct Bilirubin AST ALT Alkaline Phosphatase Lactate Dehydrogenase C-Reactive Protein Total Protein Albumin Urine WBC (Auto) Urine Creatinine Coronavirus (PCR)
--- NOTE | 2020-04-14 15:46 | Progress Note ---
Assessment and Plan - Patient Problems (1) Severe sepsis Current Visit: Yes Status: Acute (2) Pneumonia due to COVID-19 virus Current Visit: Yes Status: Acute (3) Acute respiratory failure with hypoxia Current Visit: Yes Status: Acute (4) Pulmonary embolism Current Visit: Yes Status: Acute (5) Transaminitis Current Visit: Yes Status: Acute (6) Diarrhea Current Visit: Yes Status: Resolved (7) Elevated d-dimer Current Visit: Yes Status: Acute (8) DVT prophylaxis Current Visit: Yes Status: Acute History Interval history: This is a 55-year-old male with no significant medical history who presented to the emergency department on 04/08 with a 5-day history of generalized malaise, cough, fever, shortness of breath, loss of smell and taste and diarrhea. Patient is tested positive for COVID-19 at outpatient facility 3 days before admission. Upon arrival to the emergency department his SPO2 on room air was 85% and was subsequently placed on BiPAP. Work-up emergency department revealed sepsis (presented with hypoxia, hypotension, acute kidney injury and transaminitis likely secondary to bilateral pneumonia), bilateral pneumonia on CXR, acute kidney injury, diarrhea, acute hypoxic respiratory failure, transaminitis and the patient was placed on empiric antibiotics and started on steroids. In the emergency department he received 3.5 L of normal saline, azithromycin, cefepime and dexamethasone. Patient was admitted to the hospitalist service with a consult to nephrology, infectious disease and pulmonology. Patient still remains on 25 L [place] at 100% FiO2 of high flow nasal cannula. Patient did not have any more bouts of V. tach overnight and he was started on metoprolol last night. Vital signs stable. Patient states that he still gets short of breath and occasionally coughs. 04/09: Remains on BiPAP with 80% FiO2 with SPO2 of 94%. Infectious disease has started the patient on remdesivir. Patient will continue his azithromycin and his ceftriaxone was stopped due to cefepime allergy. SARS CoV-2 IgG negative 04/10/2020. Patient currently with high flow nasal cannula 40 L/min O2 with FiO2 of 100%. Procalcitonin normal at 0.51. CRP elevated at 24.3, LDH 858 and ferritin 1068 and D-dimer 574. Trend inflammatory markers today. 04/11/2020. Patient currently with high flow nasal cannula 40 L/min O2 with FiO2 of 100%. Continue dexamethasone, remdesivir and prone positioning when possible. Continue to trend inflammatory markers. 04/12: Patient is on 25 L, 100% FiO2 high flow nasal cannula, D-dimer resulted as greater than 10,000 and CTA chest was obtained which showed small bilateral pulmonary embolism however bilateral lower extremities shows no acute DVT/SV. patient's 04/13: COVID-19 PCR was resent today. COVID-19 PCR positive: Patient still remains on high flow nasal cannula and he had a 14 beat of V. tach overnight. Stat potassium and magnesium ordered which is still pending at this time. Cardiology consulted 04/14: Patient still remains on high flow nasal cannula. He states that he is symptomatically better. Potassium level this morning is within normal limits. Patient did not have any more runs of V. tach overnight. His COVID-19 PCR is positive. Hospitalist Physical - Constitutional Vitals: Temp Pulse Resp BP Pulse Ox 98.7 F 89 16 123/75 94 04/14/20 04:11 04/14/20 10:00 04/14/20 04:11 04/14/20 04:11 04/14/20 13:38 General appearance: Present: no acute distress, well-nourished Results - Labs CBC & Chem 7: 04/13/20 05:54 04/14/20 05:46 Labs: Laboratory Last Values WBC 11.0 K/mm3 (4.5-11.0) 04/13/20 05:54 RBC 5.21 M/mm3 (3.65-5.03) H 04/13/20 05:54 Hgb 15.6 gm/dl (11.8-15.2) H 04/13/20 05:54 Hct 46.1 % (35.5-45.6) H 04/13/20 05:54 MCV 89 fl (84-94) 04/13/20 05:54 MCH 30 pg (28-32) 04/13/20 05:54 MCHC 34 % (32-34) 04/13/20 05:54 RDW 14.2 % (13.2-15.2) 04/13/20 05:54 Plt Count 271 K/mm3 (140-440) 04/13/20 05:54 Lymph % (Auto) 4.8 % (13.4-35.0) L 04/10/20 04:57 [place] % (Auto) 9.5 % (0.0-7.3) H 04/10/20 04:57 Eos % (Auto) 0.0 % (0.0-4.3) 04/10/20 04:57 Baso % (Auto) 0.1 % (0.0-1.8) 04/10/20 04:57 Lymph # (Auto) 0.6 K/mm3 (1.2-5.4) L 04/10/20 04:57 [place] # (Auto) 1.2 K/mm3 (0.0-0.8) H 04/10/20 04:57 Eos # (Auto) 0.0 K/mm3 (0.0-0.4) 04/10/20 04:57 Baso # (Auto) 0.0 K/mm3 (0.0-0.1) 04/10/20 04:57 Add Manual Diff Complete 04/13/20 05:54 Total Counted 100 04/13/20 05:54 Seg Neutrophils % [employer] 04/13/20 05:54 Seg Neuts % (Manual) 92.0 % (40.0-70.0) H 04/13/20 05:54 Band Neutrophils % 3.0 % 04/12/20 08:17 Lymphocytes % (Manual) 5.0 % (13.4-35.0) L 04/13/20 05:54 Reactive Lymphs % (Man) 1.0 % 04/11/20 09:54 Monocytes % (Manual) 3.0 % (0.0-7.3) 04/13/20 05:54 Metamyelocytes % 1.0 % 04/12/20 08:17 Myelocytes % 1.0 % 04/12/20 08:17 Nucleated RBC % Not Reportable 04/13/20 05:54 Seg Neutrophils # 10.5 K/mm3 (1.8-7.7) H 04/10/20 04:57 Seg Neutrophils # Man 10.1 K/mm3 (1.8-7.7) H 04/13/20 05:54 Band Neutrophils # 0.0 K/mm3 04/13/20 05:54 Lymphocytes # (Manual) 0.6 K/mm3 (1.2-5.4) L 04/13/20 05:54 Abs React Lymphs (Man) 0.0 K/mm3 04/13/20 05:54 Monocytes # (Manual) 0.3 K/mm3 (0.0-0.8) 04/13/20 05:54 Eosinophils # (Manual) 0.0 K/mm3 (0.0-0.4) 04/13/20 05:54 Basophils # (Manual) 0.0 K/mm3 (0.0-0.1) 04/13/20 05:54 Metamyelocytes # 0.0 K/mm3 04/13/20 05:54 Myelocytes # 0.0 K/mm3 04/13/20 05:54 Promyelocytes # 0.0 K/mm3 04/13/20 05:54 Blast Cells # 0.0 K/mm3 04/13/20 05:54 WBC Morphology Not Reportable 04/13/20 05:54 Hypersegmented Neuts Not Reportable 04/13/20 05:54 Hyposegmented Neuts Not Reportable 04/13/20 05:54 Hypogranular Neuts Not Reportable 04/13/20 05:54 Smudge Cells Not Reportable 04/13/20 05:54 Toxic Granulation 1+ 04/13/20 05:54 Toxic Vacuolation Not Reportable 04/13/20 05:54 Dohle Bodies Not Reportable 04/13/20 05:54 Pelger-Huet Anomaly Not Reportable 04/13/20 05:54 Jason Rods Not Reportable 04/13/20 05:54 Platelet Estimate Consistent w auto 04/13/20 05:54 Clumped Platelets Not Reportable 04/13/20 05:54 Plt Clumps, EDTA Not Reportable 04/13/20 05:54 Large Platelets Not Reportable 04/13/20 05:54 Giant Platelets Not Reportable 04/13/20 05:54 Platelet Satelliting Not Reportable 04/13/20 05:54 Plt Morphology Comment Not Reportable 04/13/20 05:54 RBC Morphology Normal 04/13/20 05:54 Dimorphic RBCs Not Reportable 04/13/20 05:54 Polychromasia Not Reportable 04/13/20 05:54 Hypochromasia Not Reportable 04/13/20 05:54 Poikilocytosis Not Reportable 04/13/20 05:54 Anisocytosis Not Reportable 04/13/20 05:54 Microcytosis Not Reportable 04/13/20 05:54 Macrocytosis Not Reportable 04/13/20 05:54 Spherocytes Not Reportable 04/13/20 05:54 Pappenheimer Bodies Not Reportable 04/13/20 05:54 Sickle Cells Not Reportable 04/13/20 05:54 Target Cells Not Reportable 04/13/20 05:54 Tear Drop Cells Not Reportable 04/13/20 05:54 Ovalocytes Not Reportable 04/13/20 05:54 Helmet Cells Not Reportable 04/13/20 05:54 [place] Bodies Not Reportable 04/13/20 05:54 [place] Rings Not Reportable 04/13/20 05:54 [place] Cells Not Reportable 04/13/20 05:54 Bite Cells Not Reportable 04/13/20 05:54 Crenated Cell Not Reportable 04/13/20 05:54 Elliptocytes Not Reportable 04/13/20 05:54 Acanthocytes (Spur) Not Reportable 04/13/20 05:54 Rouleaux Not Reportable 04/13/20 05:54 Hemoglobin C Crystals Not Reportable 04/13/20 05:54 Schistocytes Not Reportable 04/13/20 05:54 Malaria parasites Not Reportable 04/13/20 05:54 Nehemias Bodies Not Reportable 04/13/20 05:54 Hem Pathologist Commnt No 04/13/20 05:54 PT 14.4 Sec. (12.2-14.9) 04/10/20 04:57 INR 1.14 (0.87-1.13) H 04/10/20 04:57 D-Dimer > 74343 ng/mlDDU (0-234) H 04/13/20 05:54 ABG pH 7.376 pH Units (7.350-7.450) 04/09/20 20:11 ABG pCO2 40.4 mm Hg 04/09/20 20:11 ABG pO2 67.1 mm Hg (80.0-90.0) L 04/09/20 20:11 ABG HCO3 23.2 mmol/L (20.0-26.0) 04/09/20 20:11 ABG O2 Saturation 93.2 % (95.0-99.0) L 04/09/20 20:11 ABG O2 Content 19.8 (0.0-44) 04/09/20 20:11 ABG Base Excess -1.8 mmol/L (-2.0-3.0) 04/09/20 20:11 ABG Hemoglobin 15.4 gm/dl (14.0-18.0) 04/09/20 20:11 ABG Carboxyhemoglobin 1.0 % (0.0-5.0) 04/09/20 20:11 ABG Methemoglobin 0.6 % (0.0-1.5) 04/09/20 20:11 Oxyhemoglobin 91.7 % (95.0-99.0) L 04/09/20 20:11 FiO2 80 % 04/09/20 20:11 Sodium 142 mmol/L (137-145) 04/14/20 05:46 Potassium 4.5 mmol/L (3.6-5.0) 04/14/20 05:46 Chloride 106.9 mmol/L (98-107) 04/14/20 05:46 Carbon Dioxide 29 mmol/L (22-30) 04/14/20 05:46 Anion Gap 11 mmol/L 04/14/20 05:46 BUN 25 mg/dL (9-20) H 04/14/20 05:46 Creatinine 0.9 mg/dL (0.8-1.3) 04/14/20 05:46 Estimated GFR > 60 ml/min 04/14/20 05:46 BUN/Creatinine Ratio 28 % 04/14/20 05:46 Glucose 145 mg/dL (75-100) H 04/14/20 05:46 POC Glucose 105 mg/dL (70-105) 04/13/20 16:20 Lactic Acid 1.50 mmol/L (0.7-2.0) 04/09/20 09:55 Calcium 8.6 mg/dL (8.4-10.2) 04/14/20 05:46 Ferritin 926.3 ng/mL (30.0-300.0) H 04/11/20 09:54 Total Bilirubin 0.80 mg/dL (0.1-1.2) 04/12/20 08:17 Direct Bilirubin 0.3 mg/dL (0-0.2) H 04/12/20 08:17 Indirect Bilirubin 0.5 mg/dL 04/12/20 08:17 AST 63 units/L (5-40) H 04/12/20 08:17 ALT 97 units/L (7-56) H 04/12/20 08:17 Alkaline Phosphatase 156 units/L (35-129) H 04/12/20 08:17 Lactate Dehydrogenase 815 units/L (91-180) H 04/11/20 09:54 C-Reactive Protein 5.70 mg/dL (0.00-1.30) H 04/11/20 09:54 Total Protein 6.1 g/dL (6.3-8.2) L 04/12/20 08:17 Albumin 3.3 g/dL (3.9-5) L 04/12/20 08:17 Albumin/Globulin Ratio 1.2 % 04/12/20 08:17 Procalcitonin 0.51 ng/mL (<0.15) 04/08/20 23:06 Urine Color Yellow (Yellow) 04/09/20 Unknown Urine Turbidity Clear (Clear) 04/09/20 Unknown Urine pH 5.0 (5.0-7.0) 04/09/20 Unknown Ur Specific Lewis 1.018 (1.003-1.030) 04/09/20 Unknown Urine Protein <15 mg/dl mg/dL (Negative) 04/09/20 Unknown Urine Glucose (UA) Neg mg/dL (Negative) 04/09/20 Unknown Urine Ketones Neg mg/dL (Negative) 04/09/20 Unknown Urine Blood Neg (Negative) 04/09/20 Unknown Urine Nitrite Neg (Negative) 04/09/20 Unknown Urine Bilirubin Neg (Negative) 04/09/20 Unknown Urine Urobilinogen < 2.0 mg/dL (<2.0) 04/09/20 Unknown Ur Leukocyte Esterase Neg (Negative) 04/09/20 Unknown Urine WBC (Auto) 8.0 /HPF (0.0-6.0) H 04/09/20 Unknown Urine RBC (Auto) 3.0 /HPF (0.0-6.0) 04/09/20 Unknown U Epithel Cells (Auto) 1.0 /HPF (0-13.0) 04/09/20 Unknown Hyaline Casts 2 /LPF 04/09/20 Unknown Urine Mucus Few /HPF 04/09/20 Unknown Urine Eosinophils None seen (None Seen) 04/09/20 Unknown Urine Creatinine 176.6 mg/dL (0.1-20.0) H 04/09/20 Unknown Urine Sodium 35 mmol/L 04/09/20 Unknown Coronavirus (PCR) Positive (Negative) A 04/12/20 Unknown SARS-CoV-2 IgG Ab Nonreactive (NonReactive) 04/09/20 09:55 Blood Type O POSITIVE 04/09/20 19:43 Antibody Screen Negative 04/09/20 19:43 Microbiology: Microbiology 04/08/20 23:28 Peripheral/Venous Blood Culture - Final NO GROWTH AFTER 5 DAYS 04/08/20 23:06 Peripheral/Venous Blood Culture - Final NO GROWTH AFTER 5 DAYS [place]/IV: Voiding Method Urinal IV Catheter Type [Right INT / Saline Lock Forearm] IV Catheter Type [Right Wrist] Peripheral IV IV Catheter Type [Left INT / Saline Lock Antecubital] IV Catheter Type [Right INT / Saline Lock Antecubital] Active Medications - Current Medications Current Medications: Generic Name Dose Route Start Last Admin Trade Name Freq PRN Reason Stop Dose Admin Acetaminophen 650 mg 04/09/20 02:25 Acetaminophen 325 Mg Tab PO Q6H PRN Pain MILD(1-3)/Fever >100.5/SARKAR Dexamethasone 6 mg 04/12/20 11:00 04/14/20 10:22 Dexamethasone 4 Mg/Ml Vial IV 04/18/20 21:59 6 mg Q12HR GLORIA Administration Diphenhydramine HCl 25 mg 04/12/20 22:44 04/13/20 21:40 Diphenhydramine 25 Mg Cap PO 25 mg QHS PRN Administration Sleep Enoxaparin Sodium 100 mg 04/12/20 10:00 04/14/20 10:22 Enoxaparin 100 Mg/1 Ml Inj SUB-Q 100 mg Q12HR GLORIA Administration Protocol Guaifenesin 10 ml 04/10/20 13:00 04/14/20 05:17 Guaifenesin Dm 200/20 Mg Oral Liqd 10 Ml PO 10 ml Q4H PRN Administration Cough Hydrophilic Ointment 1 applic 04/11/20 08:00 Lip Therapy Vaseline TP DIRECT PRN Dry Lips Magnesium Hydroxide 30 ml 04/09/20 02:25 Magnesium Hydroxide (Mom) Oral Liqd Udc PO Q4H PRN Constipation Metoprolol Tartrate 25 mg 04/13/20 22:00 04/14/20 10:24 Metoprolol Tartrate 25 Mg Tab PO Not Given BID GLORIA Midodrine 5 mg 04/09/20 16:00 04/14/20 13:34 Midodrine 5 Mg Tab PO 5 mg TID@0800,1200,1600 GLORIA Administration Morphine Sulfate 2 mg 04/09/20 02:25 04/09/20 18:00 Morphine 2 Mg/1 Ml Inj IV 2 mg Q4H PRN Administration Pain, Moderate (4-6) Ondansetron HCl 4 mg 04/09/20 02:25 04/09/20 18:01 Ondansetron 4 Mg/2 Ml Inj IV 4 mg Q8H PRN Administration Nausea And Vomiting Sodium Chloride 10 ml 04/09/20 10:00 04/14/20 10:24 Sodium Chloride 0.9% 10 Ml Flush Syringe IV 10 ml BID GLORIA Administration Sodium Chloride 10 ml 04/09/20 02:25 Sodium Chloride 0.9% 10 Ml Flush Syringe IV PRN PRN LINE FLUSH Nutrition/Malnutrition Assess - Dietary Evaluation Nutrition/Malnutrition Findings: Nutrition Notes Start: 04/09/20 11:14 Freq: Status: Active Protocol: Document 04/13/20 16:01 CW (Rec: 04/13/20 16:11 CW [email or web address]) Co-Sign 04/13/20 16:01 MK Nutrition Notes Initial or Follow up Brief Note Current Diagnosis Acute Kidney Injury, Respiratory Failure Other Pertinent Diagnosis Sepsis, COVID-19 + Current Diet Regular Height 6 ft Weight 114.3 kg [place] Body Weight (kg) 80.90 BMI 34.2 Weight Status Obese Subjective/Other Information FU for MD diet education order . Pt is COVID postive. Pt answered room phone and reported eating 75% of lunch today. Per chart pt ate 100% breakfast and 75% lunch on . Pt is open to diet education and asks questions about low sodium. Gave RN pt diet education handouts. Per RN, pt preferences recorded. Pt does not report drinking ONS. #1 Nutrition Diagnosis Food and nutrition-related knowledge deficit Etiology RICKY As Evidenced by Signs and Symptoms pt had questions about sodium Nutrition Intervention Teaching Recipient Patient Learning Readiness Good Teaching Methods Discussion,Handout Education Handouts Provided AND RICKY Barriers to Learning Environmental RD phone number provided Yes Patient aware of follow up options Yes Actions To Overcome Barriers Collaboration with Other Providers Anticipated Discharge Needs: Regular Revisit per MD consult or patient Sign Off request:
--- NOTE | 2020-04-14 16:01 | Event Note ---
Date: 04/14/20 I updated the his , Ms. Lianna Alvarado at [phone] today on her husbands clinical course and procedures during hospital stay. I answered all her questions.
--- NOTE | 2020-04-15 07:25 | Progress Note ---
Assessment and Plan 1. Acute kidney injury: Likely vasomotor nephropathy in the setting of hypotension and COVID-19 infection. Renal US ordered. Monitor renal function. Creatinine level is 1.1 from 0.9 from 1.1 from 1.4 from 2 from 1.9. Avoid nephrotoxic agents. Meds dosage based on GFR. 2. FEN: Metabolic acidosis, improved, monitor. Encouraged PO fluids. Monitor lytes and volume status. 3. Acute respiratory failure with hypoxia: 2/2 COVID PNA. On HFNC O2. 4. Severe sepsis, POA: 2/2 COVID PNA. Followed by ID. 5. Severe COVID pneumonia: S/p Remdesivir. On IV Decadron. Trend inflammatory markers. 6. PE: Lovenox. 7. Elevated LFTs: 2/2 COVID. Subjective: Patient was seen and examined at the bedside. Examination: General appearance: well-developed, appears stated age, on HFNC O2 HEENT: Pupils reacting to light Neck: Trachea midline Respiratory: ctab Cardiology: regular, S1S2, no murmur Gastrointestinal: normoactive bowel sounds, no tenderness, ND Integumentary: no obvious rash Neurologic: AOX4, able to move extremities Ext: no edema Subjective Date of service: 04/15/20 Principal diagnosis: COVID-19 Objective - Vital Signs Vital signs: Vital Signs - 12hr 04/14/20 04/14/20 04/14/20 21:50 21:55 22:00 Temperature 99.4 F Pulse Rate 65 61 Respiratory 28 H Rate Blood Pressure 137/78 138/74 O2 Sat by Pulse 97 94 Oximetry 04/15/20 04/15/20 02:49 04:26 Temperature 98.9 F Pulse Rate 59 L Respiratory 20 Rate Blood Pressure 131/75 O2 Sat by Pulse 96 97 Oximetry - Lab 04/15/20 10:43 04/15/20 10:43 Most recent lab results ABG pH 7.376 pH Units (7.350-7.450) 04/09/20 20:11 ABG pCO2 40.4 mm Hg 04/09/20 20:11 ABG pO2 67.1 mm Hg (80.0-90.0) L 04/09/20 20:11 ABG HCO3 23.2 mmol/L (20.0-26.0) 04/09/20 20:11 ABG O2 Saturation 93.2 % (95.0-99.0) L 04/09/20 20:11 Calcium 8.6 mg/dL (8.4-10.2) 04/14/20 05:46 Urine Creatinine 176.6 mg/dL (0.1-20.0) H 04/09/20 Unknown Urine Sodium 35 mmol/L 04/09/20 Unknown Medications & Allergies - Medications Allergies/Adverse Reactions: Allergies cefepime Allergy (Verified 04/09/20 03:19) Hives Active Medications: Generic Name Dose Route Start Last Admin Trade Name Freq PRN Reason Stop Dose Admin Acetaminophen 650 mg 04/09/20 02:25 Acetaminophen 325 Mg Tab PO Q6H PRN Pain MILD(1-3)/Fever >100.5/SARKAR Dexamethasone 6 mg 04/12/20 11:00 04/14/20 21:54 Dexamethasone 4 Mg/Ml Vial IV 04/18/20 21:59 6 mg Q12HR GLORIA Administration Diphenhydramine HCl 25 mg 04/12/20 22:44 04/13/20 21:40 Diphenhydramine 25 Mg Cap PO 25 mg QHS PRN Administration Sleep Enoxaparin Sodium 100 mg 04/12/20 10:00 04/14/20 21:54 Enoxaparin 100 Mg/1 Ml Inj SUB-Q 100 mg Q12HR GLORIA Administration Protocol Guaifenesin 10 ml 04/10/20 13:00 04/14/20 05:17 Guaifenesin Dm 200/20 Mg Oral Liqd 10 Ml PO 10 ml Q4H PRN Administration Cough Hydrophilic Ointment 1 applic 04/11/20 08:00 Lip Therapy Vaseline TP DIRECT PRN Dry Lips Magnesium Hydroxide 30 ml 04/09/20 02:25 Magnesium Hydroxide (Mom) Oral Liqd Udc PO Q4H PRN Constipation Metoprolol Tartrate 25 mg 04/13/20 22:00 04/14/20 21:55 Metoprolol Tartrate 25 Mg Tab PO 25 mg BID GLORIA Administration Midodrine 5 mg 04/09/20 16:00 04/14/20 17:03 Midodrine 5 Mg Tab PO 5 mg TID@0800,1200,1600 GLORIA Administration Morphine Sulfate 2 mg 04/09/20 02:25 04/09/20 18:00 Morphine 2 Mg/1 Ml Inj IV 2 mg Q4H PRN Administration Pain, Moderate (4-6) Ondansetron HCl 4 mg 04/09/20 02:25 04/09/20 18:01 Ondansetron 4 Mg/2 Ml Inj IV 4 mg Q8H PRN Administration Nausea And Vomiting Sodium Chloride 10 ml 04/09/20 10:00 04/14/20 21:55 Sodium Chloride 0.9% 10 Ml Flush Syringe IV 10 ml BID GLORIA Administration Sodium Chloride 10 ml 04/09/20 02:25 Sodium Chloride 0.9% 10 Ml Flush Syringe IV PRN PRN LINE FLUSH
--- NOTE | 2020-04-15 09:15 | Progress Note ---
Assessment and Plan Short burst of NSVT pt remained asymptomatic 12 lead ECG is normal sinus rhythm Coronavirus pneumonia Acute pulmonary embolism lower extremity duplex was negative for DVT Hypotension on midodrine Acute kidney injury -resolved Elevated transaminase Recommendations: TSH and magnesium level is pending. Continue metoprolol for suppression of pNSVT. Otherwise, conservative cardiac management. Subjective Date of service: 04/15/20 Principal diagnosis: COVID-19 Interval history: No cardiac event on quality assurance monitor body overnight. 12 lead ECG reviewed, normal sinus rhythm. Labs ordered 04/13 including a TSH and magnesium has yet to be drawn. Objective Vital Signs Temp Pulse Resp BP Pulse Ox 04/15/20 08:24 97 04/15/20 04:26 98.9 F 59 L 20 131/75 97 04/15/20 02:49 96 04/14/20 22:00 94 04/14/20 21:55 61 138/74 04/14/20 21:50 99.4 F 65 28 H 137/78 97 04/14/20 16:44 98.4 F 61 18 138/74 93 04/14/20 13:38 94 04/14/20 11:50 99.2 F 64 18 127/74 94 04/14/20 10:21 64 143/79 95 04/14/20 10:00 89 04/14/20 09:26 94 - Physical Examination Narrative exam: Deferred due to isolation protocol
--- NOTE | 2020-04-15 09:59 | Progress Note ---
Assessment and Plan Cultures: Blood culture no growth today SARS CoV2 PCR positive as an outpatient SARS Covid 2 IgG nonreactive Assessment: 52 years old male with history of with no significant past medical history, admitted on 04/08/2020 secondary to 5-day history of generalized malaise, cough, fever, shortness of breath, loss of smell and taste: #Severe sepsis: no fever x 48hr. Likely due to bilateral pneumonia. #Severe COVID pneumonia: Noted elevated inflammatory markers. Chest x-ray with bilateral airspace disease. Noted very high D-dimer >10,000. CTA shows acute b ilateral pulmonary embolism. Venous ultrasound no DVT. Markers worsening, D- dimer> 10,000, ferritin 926. #Acute hypoxemic respiratory failure: Initial O2 sats dropped to 75%. Not better. Remains on high flow nasal cannula 100%, 25L. #Elevated LFTs: from COVID #RICKY: from COVID, improving #Acute diarrhea: For COVID-19 infection. #Very elevated D-dimer: Should rule out DVT/PE #Cefepime allergy: On admission patient developed hives #Nonsustained V. tach: per cards Recommendations: -Close monitoring transferred to [facility] -Pulmonary on board -On full dose anticoagulation for pulmonary embolism -Continue dexamethasone 6 mg IV/PO twice daily D4 -Continue remdesivir total 5 days D5 of 5 -SARS-CoV-2 IgG negative, patient may benefit from Covid convalescent plasma - please order it -Monitor inflammatory markers - ferritin, Ddimer, CRP, LDH -Completed azithromycin -Monitor liver function test on Remdesivir -Continue anticoagulation per System Protocol -Prone positioning as possible All laboratory, cultures and imaging were reviewed. High risk evaluation, including intubation and Will follow Ave Morales MD [employer] Representative [facility] M [phone] O [phone] Subjective Principal diagnosis: COVID-19 Objective - Constitutional Vitals: Vital Signs Temp Pulse Resp BP Pulse Ox 98.9 F 59 L 20 131/75 97 04/15/20 04:26 04/15/20 04:26 04/15/20 04:26 04/15/20 04:26 04/15/20 08:24 Temperature -Last 24 Hours Temperature 98.9 F Temperature 99.4 F Temperature 98.4 F Temperature 99.2 F - Labs CBC & Chem 7: 04/13/20 05:54 04/14/20 05:46
[2020-04-15] MEDS: MIDODRINE 5 MG TAB PO SCH ×3 (11:03→16:23)
[2020-04-15] MEDS: dexAMETHasone 4 MG/ML VIAL IV SCH ×2 (11:04→22:08)
[2020-04-15] MEDS: METOPROLOL TARTRATE 25 MG TAB PO SCH ×2 (11:05→22:09)
[2020-04-15] MEDS: ENOXAPARIN 100 MG/1 ML INJ SUB-Q SCH ×2 (11:05→22:09)
[2020-04-15 11:30] LABS: Hematocrit 45.9 % (35.5-45.6); Hemoglobin 15.1 gm/dl (11.8-15.2); Mean Corpuscular HGB Conc 33 % (32-34); Mean Corpuscular Volume 89 fl (84-94); Platelet Count 326 K/mm3 (140-440); Red Blood Count 5.16 M/mm3 (3.65-5.03); Red Cell Distribution Width 14.2 % (13.2-15.2)
[2020-04-15 11:34] LABS: Alanine Aminotransferase 61 units/L (7-56); Albumin 2.9 g/dL (3.9-5); BUN/Creatinine Ratio 24; Blood Urea Nitrogen 26 mg/dL (9-20); Calcium 8.6 mg/dL (8.4-10.2); Hemolysis Index 28
--- NOTE | 2020-04-15 14:36 | Progress Note ---
Assessment and Plan - Patient Problems (1) Severe sepsis Current Visit: Yes Status: Acute Plan to address problem: Patient presented with tachypnea, leukocytosis, pneumonia on CXR, end organ dysfunction with RICKY and respiratory failure Secondary to COVID-19 pneumonia Infectious disease consulted 04/08 BC x2 no growth after 72 hours (2) Pneumonia due to COVID-19 virus Current Visit: Yes Status: Acute Plan to address problem: Pneumonia on CXR 04/09 COVID-19 antibody negative 04/12 Covid ID PCR positive S/p azithromycin for 4 days Continue dexamethasone (BID dosing 04/12-04/18) (IV Dexamethasone for 3 days) and remdesivir (04/10-04/15) Anticoagulation for VTE treatment Prone position as needed Supplemental oxygen as needed Infectious disease and pulmonology consulted Trend inflammatory markers Droplet/contact isolation precautions Pulmonary hygiene OOB 3 times daily and as needed 04/15 convalescent plasma ordered (3) Acute respiratory failure with hypoxia Current Visit: Yes Status: Acute Plan to address problem: Patient presented with hypoxia S/p BiPAP Currently on high flow nasal cannula Continue SPO2 monitoring Pulmonary hygiene Supplemental oxygen as needed, wean as tolerated (4) Pulmonary embolism Current Visit: Yes Status: Acute Plan to address problem: 04/12 CTA chest shows shows acute occlusive pulmonary embolism within the right lung base, occlusive pulmonary emboli but some within the left upper lobe segmental pulmonary artery, possible acute pulmonary embolism in the left lung base with no central saddle embolus. Extensive bilateral airspace disease with somewhat patchy distribution. Hepatic steatosis, right adrenal nodules may be adenomas Therapeutic anticoagulation with Lovenox Supplemental oxygen as needed Consider echo to evaluate for right heart strain if oxygenation is not improving (5) Non-sustained ventricular tachycardia Current Visit: Yes Status: Acute Plan to address problem: Patient had a 14 beat run of V. tach on 04/13 Cardiology consulted, appreciate recommendations Recommend continuation of conservative therapy with beta-hilaria Remote telemetry Patient has not had any more runs of V. tach since initiation of beta-hilaria (6) Transaminitis Current Visit: Yes Status: Resolved Plan to address problem: Secondary to COVID-19/sepsis Monitor LFTs with remdesivir therapy 04/08 AST: 107, ALT 69, alkaline phos 125 04/10 AST 50, ALT 49, alkaline phos 99 04/11 AST 76, ALT 89, alkaline [place] 144 04/12 AST 63, ALT 97, alkaline phos 156 04/15 AST 20, ALT 61, alk phos 109 (7) Elevated d-dimer Current Visit: Yes Status: Acute Plan to address problem: 04/08 D-dimer 574 04/12 D-dimer greater than 10,000 04/12 CTA chest shows acute occlusive pulmonary plasm in the right lung base, left upper lobe segmental pulmonary artery, possible acute pulmonary embolism in the left lung base 04/12 bilateral lower extremity Dopplers shows no acute SVT/DVT (8) DVT prophylaxis Current Visit: Yes Status: Acute Plan to address problem: SCDs to bilateral lower extremities while in bed 04/12 started on therapeutic anticoagulation History Interval history: This is a 55-year-old male with no significant medical history who presented to the emergency department on 04/08 with a 5-day history of generalized malaise, cough, fever, shortness of breath, loss of smell and taste and diarrhea. Patient is tested positive for COVID-19 at outpatient facility 3 days before admission. Upon arrival to the emergency department his SPO2 on room air was 85% and was subsequently placed on BiPAP. Work-up emergency department revealed sepsis (presented with hypoxia, hypotension, acute kidney injury and transaminitis likely secondary to bilateral pneumonia), bilateral pneumonia on CXR, acute kidney injury, diarrhea, acute hypoxic respiratory failure, transaminitis and the patient was placed on empiric antibiotics and started on steroids. In the emergency department he received 3.5 L of normal saline, azithromycin, cefepime and dexamethasone. Patient was admitted to the hospitalist service with a consult to nephrology, infectious disease and pulmonology. Patient still remains on high flow nasal cannula at 35 L, 100% FiO2. RT attempted to wean and he desatted to the high 80s. Today is his last day of remdesivir. ID suggests the use of convalescent plasma and we have ordered a type and cross and the plasma. 04/09: Remains on BiPAP with 80% FiO2 with SPO2 of 94%. Infectious disease has started the patient on remdesivir. Patient will continue his azithromycin and his ceftriaxone was stopped due to cefepime allergy. SARS CoV-2 IgG negative 04/10/2020. Patient currently with high flow nasal cannula 40 L/min O2 with FiO2 of 100%. Procalcitonin normal at 0.51. CRP elevated at 24.3, LDH 858 and ferritin 1068 and D-dimer 574. Trend inflammatory markers today. 04/11/2020. Patient currently with high flow nasal cannula 40 L/min O2 with FiO2 of 100%. Continue dexamethasone, remdesivir and prone positioning when possible. Continue to trend inflammatory markers. 04/12: Patient is on 25 L, 100% FiO2 high flow nasal cannula, D-dimer resulted as greater than 10,000 and CTA chest was obtained which showed small bilateral pulmonary embolism however bilateral lower extremities shows no acute DVT/SV. patient's 04/13: COVID-19 PCR was resent today. COVID-19 PCR positive,Patient still re hilario on high flow nasal cannula and he had a 14 beat of V. tach overnight. Stat potassium and magnesium ordered which is still pending at this time. Cardiology consulted 04/14: Remains on high flow nasal cannula. He states that he is symptomatically better. Potassium level this morning is within normal limits. Patient did not have any more runs of V. tach overnight. Hospitalist Physical - Constitutional Vitals: Temp Pulse Resp BP Pulse Ox 97.8 F 65 22 117/76 94 04/15/20 12:09 04/15/20 12:09 04/15/20 12:09 04/15/20 12:04/15/20 12:09 General appearance: Present: no acute distress, well-nourished - EENT Eyes: Present: PERRL, EOM intact ENT: hearing intact, clear oral mucosa - Neck Neck: Present: normal ROM - Respiratory Respiratory effort: normal Respiratory: bilateral: diminished - Cardiovascular Rhythm: regular Heart Sounds: Present: S1 & S2. Absent: systolic murmur, diastolic murmur - Extremities Extremities: no ischemia, pulses intact, pulses symmetrical, No edema, normal temperature, normal color, Full ROM Peripheral Pulses: within normal limits - Abdominal General gastrointestinal: soft, non-tender, non-distended, normal bowel sounds - Integumentary Integumentary: Present: clear, warm, dry - Psychiatric Psychiatric: appropriate mood/affect, cooperative - Neurologic Neurologic: CNII-XII intact, no focal deficits, moves all extremities - Allied Health Allied health notes reviewed: nursing Results - Labs CBC & Chem 7: 04/15/20 10:43 04/15/20 10:43 Labs: Laboratory Last Values WBC 12.9 K/mm3 (4.5-11.0) H 04/15/20 10:43 RBC 5.16 M/mm3 (3.65-5.03) H 04/15/20 10:43 Hgb 15.1 gm/dl (11.8-15.2) 04/15/20 10:43 Hct 45.9 % (35.5-45.6) H 04/15/20 10:43 MCV 89 fl (84-94) 04/15/20 10:43 MCH 29 pg (28-32) 04/15/20 10:43 MCHC 33 % (32-34) 04/15/20 10:43 RDW 14.2 % (13.2-15.2) 04/15/20 10:43 Plt Count 326 K/mm3 (140-440) 04/15/20 10:43 Lymph % (Auto) 4.8 % (13.4-35.0) L 04/10/20 04:57 [place] % (Auto) 9.5 % (0.0-7.3) H 04/10/20 04:57 Eos % (Auto) 0.0 % (0.0-4.3) 04/10/20 04:57 Baso % (Auto) 0.1 % (0.0-1.8) 04/10/20 04:57 Lymph # (Auto) 0.6 K/mm3 (1.2-5.4) L 04/10/20 04:57 [place] # (Auto) 1.2 K/mm3 (0.0-0.8) H 04/10/20 04:57 Eos # (Auto) 0.0 K/mm3 (0.0-0.4) 04/10/20 04:57 Baso # (Auto) 0.0 K/mm3 (0.0-0.1) 04/10/20 04:57 Add Manual Diff Complete 04/13/20 05:54 Total Counted 100 04/13/20 05:54 Seg Neutrophils % Trouble Lineman 04/13/20 05:54 Seg Neuts % (Manual) 92.0 % (40.0-70.0) H 04/13/20 05:54 Band Neutrophils % 3.0 % 04/12/20 08:17 Lymphocytes % (Manual) 5.0 % (13.4-35.0) L 04/13/20 05:54 Reactive Lymphs % (Man) 1.0 % 04/11/20 09:54 Monocytes % (Manual) 3.0 % (0.0-7.3) 04/13/20 05:54 Metamyelocytes % 1.0 % 04/12/20 08:17 Myelocytes % 1.0 % 04/12/20 08:17 Nucleated RBC % Not Reportable 04/13/20 05:54 Seg Neutrophils # 10.5 K/mm3 (1.8-7.7) H 04/10/20 04:57 Seg Neutrophils # Man 10.1 K/mm3 (1.8-7.7) H 04/13/20 05:54 Band Neutrophils # 0.0 K/mm3 04/13/20 05:54 Lymphocytes # (Manual) 0.6 K/mm3 (1.2-5.4) L 04/13/20 05:54 Abs React Lymphs (Man) 0.0 K/mm3 04/13/20 05:54 Monocytes # (Manual) 0.3 K/mm3 (0.0-0.8) 04/13/20 05:54 Eosinophils # (Manual) 0.0 K/mm3 (0.0-0.4) 04/13/20 05:54 Basophils # (Manual) 0.0 K/mm3 (0.0-0.1) 04/13/20 05:54 Metamyelocytes # 0.0 K/mm3 04/13/20 05:54 Myelocytes # 0.0 K/mm3 04/13/20 05:54 Promyelocytes # 0.0 K/mm3 04/13/20 05:54 Blast Cells # 0.0 K/mm3 04/13/20 05:54 WBC Morphology Not Reportable 04/13/20 05:54 Hypersegmented Neuts Not Reportable 04/13/20 05:54 Hyposegmented Neuts Not Reportable 04/13/20 05:54 Hypogranular Neuts Not Reportable 04/13/20 05:54 Smudge Cells Not Reportable 04/13/20 05:54 Toxic Granulation 1+ 04/13/20 05:54 Toxic Vacuolation Not Reportable 04/13/20 05:54 Dohle Bodies Not Reportable 04/13/20 05:54 Pelger-Huet Anomaly Not Reportable 04/13/20 05:54 Jason Rods Not Reportable 04/13/20 05:54 Platelet Estimate Consistent w auto 04/13/20 05:54 Clumped Platelets Not Reportable 04/13/20 05:54 Plt Clumps, EDTA Not Reportable 04/13/20 05:54 Large Platelets Not Reportable 04/13/20 05:54 Giant Platelets Not Reportable 04/13/20 05:54 Platelet Satelliting Not Reportable 04/13/20 05:54 Plt Morphology Comment Not Reportable 04/13/20 05:54 RBC Morphology Normal 04/13/20 05:54 Dimorphic RBCs Not Reportable 04/13/20 05:54 Polychromasia Not Reportable 04/13/20 05:54 Hypochromasia Not Reportable 04/13/20 05:54 Poikilocytosis Not Reportable 04/13/20 05:54 Anisocytosis Not Reportable 04/13/20 05:54 Microcytosis Not Reportable 04/13/20 05:54 Macrocytosis Not Reportable 04/13/20 05:54 Spherocytes Not Reportable 04/13/20 05:54 Pappenheimer Bodies Not Reportable 04/13/20 05:54 Sickle Cells Not Reportable 04/13/20 05:54 Target Cells Not Reportable 04/13/20 05:54 Tear Drop Cells Not Reportable 04/13/20 05:54 Ovalocytes Not Reportable 04/13/20 05:54 Helmet Cells Not Reportable 04/13/20 05:54 [place] Bodies Not Reportable 04/13/20 05:54 [place] Rings Not Reportable 04/13/20 05:54 [place] Cells Not Reportable 04/13/20 05:54 Bite Cells Not Reportable 04/13/20 05:54 Crenated Cell Not Reportable 04/13/20 05:54 Elliptocytes Not Reportable 04/13/20 05:54 Acanthocytes (Spur) Not Reportable 04/13/20 05:54 Rouleaux Not Reportable 04/13/20 05:54 Hemoglobin C Crystals Not Reportable 04/13/20 05:54 Schistocytes Not Reportable 04/13/20 05:54 Malaria parasites Not Reportable 04/13/20 05:54 Nehemias Bodies Not Reportable 04/13/20 05:54 Hem Pathologist Commnt No 04/13/20 05:54 PT 14.4 Sec. (12.2-14.9) 04/10/20 04:57 INR 1.14 (0.87-1.13) H 04/10/20 04:57 D-Dimer > 21930 ng/mlDDU (0-234) H 04/13/20 05:54 ABG pH 7.376 pH Units (7.350-7.450) 04/09/20 20:11 ABG pCO2 40.4 mm Hg 04/09/20 20:11 ABG pO2 67.1 mm Hg (80.0-90.0) L 04/09/20 20:11 ABG HCO3 23.2 mmol/L (20.0-26.0) 04/09/20 20:11 ABG O2 Saturation 93.2 % (95.0-99.0) L 04/09/20 20:11 ABG O2 Content 19.8 (0.0-44) 04/09/20 20:11 ABG Base Excess -1.8 mmol/L (-2.0-3.0) 04/09/20 20:11 ABG Hemoglobin 15.4 gm/dl (14.0-18.0) 04/09/20 20:11 ABG Carboxyhemoglobin 1.0 % (0.0-5.0) 04/09/20 20:11 ABG Methemoglobin 0.6 % (0.0-1.5) 04/09/20 20:11 Oxyhemoglobin 91.7 % (95.0-99.0) L 04/09/20 20:11 FiO2 80 % 04/09/20 20:11 Sodium 143 mmol/L (137-145) 04/15/20 10:43 Potassium 4.2 mmol/L (3.6-5.0) 04/15/20 10:43 Chloride 105.7 mmol/L (98-107) 04/15/20 10:43 Carbon Dioxide 31 mmol/L (22-30) H 04/15/20 10:43 Anion Gap 11 mmol/L 04/15/20 10:43 BUN 26 mg/dL (9-20) H 04/15/20 10:43 Creatinine 1.1 mg/dL (0.8-1.3) 04/15/20 10:43 Estimated GFR > 60 ml/min 04/15/20 10:43 BUN/Creatinine Ratio 24 % 04/15/20 10:43 Glucose 99 mg/dL (75-100) 04/15/20 10:43 POC Glucose 105 mg/dL (70-105) 04/13/20 16:20 Lactic Acid 1.50 mmol/L (0.7-2.0) 04/09/20 09:55 Calcium 8.6 mg/dL (8.4-10.2) 04/15/20 10:43 Ferritin 926.3 ng/mL (30.0-300.0) H 04/11/20 09:54 Total Bilirubin 0.50 mg/dL (0.1-1.2) 04/15/20 10:43 Direct Bilirubin 0.3 mg/dL (0-0.2) H 04/12/20 08:17 Indirect Bilirubin 0.5 mg/dL 04/12/20 08:17 AST 23 units/L (5-40) 04/15/20 10:43 ALT 61 units/L (7-56) H 04/15/20 10:43 Alkaline Phosphatase 109 units/L (35-129) 04/15/20 10:43 Lactate Dehydrogenase 815 units/L (91-180) H 04/11/20 09:54 C-Reactive Protein 5.70 mg/dL (0.00-1.30) H 04/11/20 09:54 Total Protein 6.3 g/dL (6.3-8.2) 04/15/20 10:43 Albumin 2.9 g/dL (3.9-5) L 04/15/20 10:43 Albumin/Globulin Ratio 0.9 % 04/15/20 10:43 Procalcitonin 0.51 ng/mL (<0.15) 04/08/20 23:06 Urine Color Yellow (Yellow) 04/09/20 Unknown Urine Turbidity Clear (Clear) 04/09/20 Unknown Urine pH 5.0 (5.0-7.0) 04/09/20 Unknown Ur Specific [place] 1.018 (1.003-1.030) 04/09/20 Unknown Urine Protein <15 mg/dl mg/dL (Negative) 04/09/20 Unknown Urine Glucose (UA) Neg mg/dL (Negative) 04/09/20 Unknown Urine Ketones Neg mg/dL (Negative) 04/09/20 Unknown Urine Blood Neg (Negative) 04/09/20 Unknown Urine Nitrite Neg (Negative) 04/09/20 Unknown Urine Bilirubin Neg (Negative) 04/09/20 Unknown Urine Urobilinogen < 2.0 mg/dL (<2.0) 04/09/20 Unknown Ur Leukocyte Esterase Neg (Negative) 04/09/20 Unknown Urine WBC (Auto) 8.0 /HPF (0.0-6.0) H 04/09/20 Unknown Urine RBC (Auto) 3.0 /HPF (0.0-6.0) 04/09/20 Unknown U Epithel Cells (Auto) 1.0 /HPF (0-13.0) 04/09/20 Unknown Hyaline Casts 2 /LPF 04/09/20 Unknown Urine Mucus Few /HPF 04/09/20 Unknown Urine Eosinophils None seen (None Seen) 04/09/20 Unknown Urine Creatinine 176.6 mg/dL (0.1-20.0) H 04/09/20 Unknown Urine Sodium 35 mmol/L 04/09/20 Unknown Coronavirus (PCR) Positive (Negative) A 04/12/20 Unknown SARS-CoV-2 IgG Ab Nonreactive (NonReactive) 04/09/20 09:55 Blood Type O POSITIVE 04/09/20 19:43 Antibody Screen Negative 04/09/20 19:43 [place]/IV: Voiding Method Urinal IV Catheter Type [Right INT / Saline Lock Forearm] IV Catheter Type [Right Wrist] Peripheral IV IV Catheter Type [Left INT / Saline Lock Antecubital] IV Catheter Type [Right INT / Saline Lock Antecubital] Active Medications - Current Medications Current Medications: Generic Name Dose Route Start Last Admin Trade Name Freq PRN Reason Stop Dose Admin Acetaminophen 650 mg 04/09/20 02:25 Acetaminophen 325 Mg Tab PO Q6H PRN Pain MILD(1-3)/Fever >100.5/SARKAR Dexamethasone 6 mg 04/12/20 11:00 04/15/20 11:04 Dexamethasone 4 Mg/Ml Vial IV 04/18/20 21:59 6 mg Q12HR GLORIA Administration Diphenhydramine HCl 25 mg 04/12/20 22:44 04/13/20 21:40 Diphenhydramine 25 Mg Cap PO 25 mg QHS PRN Administration Sleep Enoxaparin Sodium 100 mg 04/12/20 10:00 04/15/20 11:05 Enoxaparin 100 Mg/1 Ml Inj SUB-Q 100 mg Q12HR GLORIA Administration Protocol Guaifenesin 10 ml 04/10/20 13:00 04/14/20 05:17 Guaifenesin Dm 200/20 Mg Oral Liqd 10 Ml PO 10 ml Q4H PRN Administration Cough Hydrophilic Ointment 1 applic 04/11/20 08:00 Lip Therapy Vaseline TP DIRECT PRN Dry Lips Magnesium Hydroxide 30 ml 04/09/20 02:25 Magnesium Hydroxide (Mom) Oral Liqd Udc PO Q4H PRN Constipation Metoprolol Tartrate 25 mg 04/13/20 22:00 04/15/20 11:05 Metoprolol Tartrate 25 Mg Tab PO 25 mg BID GLORIA Administration Midodrine 5 mg 04/09/20 16:00 04/15/20 11:03 Midodrine 5 Mg Tab PO Not Given TID@0800,1200,1600 GLORIA Morphine Sulfate 2 mg 04/09/20 02:25 04/09/20 18:00 Morphine 2 Mg/1 Ml Inj IV 2 mg Q4H PRN Administration Pain, Moderate (4-6) Ondansetron HCl 4 mg 04/09/20 02:25 04/09/20 18:01 Ondansetron 4 Mg/2 Ml Inj IV 4 mg Q8H PRN Administration Nausea And Vomiting Sodium Chloride 10 ml 04/09/20 10:00 04/15/20 11:06 Sodium Chloride 0.9% 10 Ml Flush Syringe IV 10 ml BID GLORIA Administration Sodium Chloride 10 ml 04/09/20 02:25 Sodium Chloride 0.9% 10 Ml Flush Syringe IV PRN PRN LINE FLUSH Nutrition/Malnutrition Assess - Dietary Evaluation Nutrition/Malnutrition Findings: Nutrition Notes Start: 04/09/20 11:14 Freq: Status: Active Protocol: Document 04/13/20 16:01 CW (Rec: 04/13/20 16:11 CW [email or web address]) Co-Sign 04/13/20 16:01 MK Nutrition Notes Initial or Follow up Brief Note Current Diagnosis Acute Kidney Injury, Respiratory Failure Other Pertinent Diagnosis Sepsis, COVID-19 + Current Diet Regular Height 6 ft Weight 114.3 kg [place] Body Weight (kg) 80.90 BMI 34.2 Weight Status Obese Subjective/Other Information FU for MD diet education order . Pt is COVID postive. Pt answered room phone and reported eating 75% of lunch today. Per chart pt ate 100% breakfast and 75% lunch on . Pt is open to diet education and asks questions about low sodium. Gave RN pt diet education handouts. Per RN, pt preferences recorded. Pt does not report drinking ONS. #1 Nutrition Diagnosis Food and nutrition-related knowledge deficit Etiology RICKY As Evidenced by Signs and Symptoms pt had questions about sodium Nutrition Intervention Teaching Recipient Patient Learning Readiness Good Teaching Methods Discussion,Handout Education Handouts Provided AND RICKY Barriers to Learning Environmental RD phone number provided Yes Patient aware of follow up options Yes Actions To Overcome Barriers Collaboration with Other Providers Anticipated Discharge Needs: Regular Revisit per MD consult or patient Sign Off request:
[2020-04-16 08:54] LABS: Alanine Aminotransferase 55 units/L (7-56); Albumin 2.7 g/dL (3.9-5)
[2020-04-16 08:56] LABS: Bilirubin,Direct < 0.2 mg/dL (0-0.2)
--- NOTE | 2020-04-16 11:05 | Progress Note ---
Assessment and Plan Short burst of NSVT pt remained asymptomatic no further nonsustained ventricular tachycardia has been reported TSH is normal at 0.843 Coronavirus pneumonia Acute pulmonary embolism lower extremity duplex was negative for DVT Hypotension on midodrine Acute kidney injury -resolved Elevated transaminase Recommendations: Continue metoprolol for suppression of pNSVT. Otherwise, conservative cardiac management. Subjective Date of service: 04/16/20 Principal diagnosis: COVID-19 Interval history: No cardiac event on panel monitor overnight. Objective Vital Signs Temp Pulse Resp BP Pulse Ox 04/16/20 02:43 96 04/16/20 00:00 71 04/15/20 20:00 95 04/15/20 16:14 99.0 F 72 24 127/71 96 04/15/20 12:09 97.8 F 65 22 117/76 94 - Physical Examination Narrative exam: Deferred due to isolation protocol - Labs and Meds Cardiac Enzymes 04/15/20 04/16/20 Range/Units 10:43 07:43 AST 23 24 (5-40) units/L Lactate Dehydrogenase 526 H (91-180) units/L CBC 04/15/20 Range/Units 10:43 WBC 12.9 H (4.5-11.0) K/mm3 RBC 5.16 H (3.65-5.03) M/mm3 Hgb 15.1 (11.8-15.2) gm/dl Hct 45.9 H (35.5-45.6) % Plt Count 326 (140-440) K/mm3 Comprehensive Metabolic Panel 04/15/20 04/16/20 Range/Units 10:43 07:43 Sodium 143 (137-145) mmol/L Potassium 4.2 (3.6-5.0) mmol/L Chloride 105.7 (98-107) mmol/L Carbon Dioxide 31 H (22-30) mmol/L BUN 26 H (9-20) mg/dL Creatinine 1.1 (0.8-1.3) mg/dL Glucose 99 120 H (75-100) mg/dL Calcium 8.6 (8.4-10.2) mg/dL Direct Bilirubin < 0.2 (0-0.2) mg/dL Indirect Bilirubin 0.3 mg/dL AST 23 24 (5-40) units/L ALT 61 H 55 (7-56) units/L Alkaline Phosphatase 109 98 (35-129) units/L Total Protein 6.3 5.9 L (6.3-8.2) g/dL Albumin 2.9 L 2.7 L (3.9-5) g/dL
[2020-04-16] MEDS: MIDODRINE 5 MG TAB PO SCH ×2 (11:34)
[2020-04-16] MEDS: ENOXAPARIN 100 MG/1 ML INJ SUB-Q SCH ×2 (11:34→22:39)
[2020-04-16] MEDS: dexAMETHasone 4 MG/ML VIAL IV SCH ×2 (11:34→22:39)
[2020-04-16] MEDS: METOPROLOL TARTRATE 25 MG TAB PO SCH ×2 (11:34→22:40)
--- NOTE | 2020-04-16 13:04 | Progress Note ---
Assessment and Plan 52 years old male with history of with no significant past medical history, admitted on 04/08/2020 secondary to 5-day history of generalized malaise, cough, fever, shortness of breath, loss of smell and taste -Severe sepsis -Acute hypoxemic respiratory failure on HFOT 25L 100% -Bilateral Pneumonia -Severe COVID infection -Elevated LFTs -RICKY -Acute diarrhea, from COVID -Acidosis -Bilateral pulmonary embolism -Wean supplemental oxygen for O2 sats>90% -Awake proning, lateral decubitus positioning as tolerated - accuchecks with glycemic control per SSI (While critically ill target blood glucose of 140-180 mg/dL; avoid hypoglycemia) - Monitor liver function test , avoid hepatotoxic agents - Avoid nephrotoxins, renally dose all medications, conservative fluid managemen t - Avoid benzodiazepines, reduce the possibility of delirium - Maintenance of sleep-wake cycle - Aspiration precautions -CXR and ABG in am -Supportive transfusions to keep HgB >7g/dL - Monitor hemodynamics closely - continue other care per attending / other consultants COVID SPECIFIC INTERVENTIONS - SARS CoV-2 IgG negative, Convalescent plasma ordered bu [facility] service -s/p Remdesivir -On dexamethasone -Monitor inflammatory markers - ferritin, dimer, CRP, LDH per facility protocol -Anticoagulation per System Protocol based on d-dimer- on therapeutic anticoagulation for PE -Continue contact and airborne isolation per facility protocol CONDITION: CRITICAL PROGNOSIS: GUARDED CODE STATUS: FULL CODE The high probability of a clinically significant, sudden or life-threatening deterioration of the [respiratory, renal system(s) required my full and direct attention, intervention and personal management. The aggregate critical care time was [33] minutes without overlap. Time includes spent on; [x] Data Review and interpretation [x] Patient assessment and monitoring of vital signs [x] Documentation [x] Medication orders and management Subjective Date of service: 04/16/20 Principal diagnosis: COVID-19 Interval history: Follow up for: -Severe sepsis;Acute hypoxemic respiratory failure on HFOT; Acute bilateral pulmonary emboli;Bilateral Pneumonia;Severe COVID infection No adverse overnight events reported. Symptom improvement. Remains on high flow nasal cannula 100%, 10L, no fever. Nursing and respiratory staff consulted. Objective Vital Signs - 12hr 04/16/20 04/16/20 02:43 11:00 Pulse Rate 71 O2 Sat by Pulse 96 95 Oximetry Constitutional: no acute distress, alert, other (mild respiratory distress on high flow oxygen therapy) Eyes: non-icteric Neck: supple, no lymphadenopathy, no JVD, other (large short neck) Effort: mildly labored Ascultation: Bilateral: diminished breath sounds, rhonchi Cardiovascular: regular rate and rhythm, other (S1,S2) Gastrointestinal: normoactive bowel sounds, soft, non-tender, non-distended Integumentary: normal Extremities: no cyanosis, no edema, pulses normal Neurologic: normal mental status, non-focal exam, pupils equal and round, motor strength normal and Psychiatric: mood appropriate, affect normal CBC and BMP: 04/15/20 10:43 04/16/20 07:43 ABG, PT/INR, D-dimer: ABG ABG pH 7.376 pH Units (7.350-7.450) 04/09/20 20:11 ABG pCO2 40.4 mm Hg 04/09/20 20:11 ABG pO2 67.1 mm Hg (80.0-90.0) L 04/09/20 20:11 ABG O2 Saturation 93.2 % (95.0-99.0) L 04/09/20 20:11 PT/INR, D-dimer PT 14.4 Sec. (12.2-14.9) 04/10/20 04:57 INR 1.14 (0.87-1.13) H 04/10/20 04:57 D-Dimer 1874.60 ng/mlDDU (0-234) H 04/16/20 07:43 Abnormal lab findings: Abnormal Labs 04/08/20 04/08/20 04/08/20 23:06 23:06 23:06 WBC RBC 5.59 H Hgb 17.0 H Hct 48.5 H MCHC 35 H Lymph % (Auto) 4.5 L [place] % (Auto) 7.5 H Lymph # (Auto) 0.5 L [place] # (Auto) Seg Neutrophils % 87.4 H Seg Neuts % (Manual) Lymphocytes % (Manual) Nucleated RBC % Seg Neutrophils # 9.3 H Seg Neutrophils # Man Lymphocytes # (Manual) INR D-Dimer 574.04 H ABG pO2 ABG O2 Saturation Oxyhemoglobin Sodium 136 L Chloride Carbon Dioxide BUN 31 H Creatinine 1.9 H Glucose 132 H Ferritin Direct Bilirubin AST 107 H ALT 69 H Alkaline Phosphatase Lactate Dehydrogenase C-Reactive Protein Total Protein Albumin 3.5 L Urine WBC (Auto) Urine Creatinine Coronavirus (PCR) 04/08/20 04/08/20 04/09/20 23:06 23:06 09:55 WBC RBC Hgb Hct MCHC Lymph % (Auto) [place] % (Auto) Lymph # (Auto) [place] # (Auto) Seg Neutrophils % Seg Neuts % (Manual) Lymphocytes % (Manual) Nucleated RBC % Seg Neutrophils # Seg Neutrophils # Man Lymphocytes # (Manual) INR D-Dimer ABG pO2 ABG O2 Saturation Oxyhemoglobin Sodium Chloride Carbon Dioxide 17 L BUN 33 H Creatinine 2.0 H Glucose 131 H 135 H Ferritin 1068.0 H Direct Bilirubin AST ALT Alkaline Phosphatase Lactate Dehydrogenase 858 H C-Reactive Protein 24.30 H Total Protein Albumin Urine WBC (Auto) Urine Creatinine Coronavirus (PCR) 04/09/20 04/09/20 04/09/20 20:11 Unknown Unknown WBC RBC Hgb Hct MCHC Lymph % (Auto) [place] % (Auto) Lymph # (Auto) [place] # (Auto) Seg Neutrophils % Seg Neuts % (Manual) Lymphocytes % (Manual) Nucleated RBC % Seg Neutrophils # Seg Neutrophils # Man Lymphocytes # (Manual) INR D-Dimer ABG pO2 67.1 L ABG O2 Saturation 93.2 L Oxyhemoglobin 91.7 L Sodium Chloride Carbon Dioxide BUN Creatinine Glucose Ferritin Direct Bilirubin AST ALT Alkaline Phosphatase Lactate Dehydrogenase C-Reactive Protein Total Protein Albumin Urine WBC (Auto) 8.0 H Urine Creatinine 176.6 H Coronavirus (PCR) 04/10/20 04/10/20 04/10/20 04:57 04:57 04:57 WBC 12.3 H RBC Hgb Hct MCHC Lymph % (Auto) 4.8 L [place] % (Auto) 9.5 H Lymph # (Auto) 0.6 L [place] # (Auto) 1.2 H Seg Neutrophils % 85.6 H Seg Neuts % (Manual) Lymphocytes % (Manual) Nucleated RBC % Seg Neutrophils # 10.5 H Seg Neutrophils # Man Lymphocytes # (Manual) INR 1.14 H D-Dimer ABG pO2 ABG O2 Saturation Oxyhemoglobin Sodium 146 H Chloride 107.4 H Carbon Dioxide BUN 43 H Creatinine 1.4 H Glucose 137 H Ferritin Direct Bilirubin AST ALT Alkaline Phosphatase Lactate Dehydrogenase C-Reactive Protein Total Protein Albumin Urine WBC (Auto) Urine Creatinine Coronavirus (PCR) 04/10/20 04/11/20 04/11/20 04:57 09:54 09:54 WBC RBC Hgb Hct MCHC Lymph % (Auto) [place] % (Auto) Lymph # (Auto) [place] # (Auto) Seg Neutrophils % Seg Neuts % (Manual) Lymphocytes % (Manual) Nucleated RBC % Seg Neutrophils # Seg Neutrophils # Man Lymphocytes # (Manual) INR D-Dimer > 90112 H ABG pO2 ABG O2 Saturation Oxyhemoglobin Sodium Chloride Carbon Dioxide BUN Creatinine Glucose Ferritin Direct Bilirubin AST 50 H 76 H ALT 89 H Alkaline Phosphatase 134 H Lactate Dehydrogenase C-Reactive Protein Total Protein Albumin 3.2 L 3.0 L Urine WBC (Auto) Urine Creatinine Coronavirus (PCR) 04/11/20 04/11/20 04/11/20 09:54 09:54 09:54 WBC 11.8 H RBC 5.26 H Hgb 15.4 H Hct 46.1 H MCHC Lymph % (Auto) [place] % (Auto) Lymph # (Auto) [place] # (Auto) Seg Neutrophils % Seg Neuts % (Manual) 91.0 H Lymphocytes % (Manual) 6.0 L Nucleated RBC % 1.0 H Seg Neutrophils # Seg Neutrophils # Man 10.7 H Lymphocytes # (Manual) 0.7 L INR D-Dimer ABG pO2 ABG O2 Saturation Oxyhemoglobin Sodium Chloride 107.1 H Carbon Dioxide BUN 33 H Creatinine Glucose 111 H Ferritin 926.3 H Direct Bilirubin AST ALT Alkaline Phosphatase Lactate Dehydrogenase 815 H C-Reactive Protein 5.70 H Total Protein Albumin Urine WBC (Auto) Urine Creatinine Coronavirus (PCR) 04/12/20 04/12/20 04/12/20 08:17 08:17 08:17 WBC RBC 5.07 H Hgb Hct MCHC Lymph % (Auto) [place] % (Auto) Lymph # (Auto) [place] # (Auto) Seg Neutrophils % Seg Neuts % (Manual) 78.0 H Lymphocytes % (Manual) 10.0 L Nucleated RBC % Seg Neutrophils # Seg Neutrophils # Man 8.0 H Lymphocytes # (Manual) 1.0 L INR D-Dimer ABG pO2 ABG O2 Saturation Oxyhemoglobin Sodium Chloride Carbon Dioxide 31 H BUN 25 H Creatinine Glucose Ferritin Direct Bilirubin 0.3 H AST 63 H ALT 97 H Alkaline Phosphatase 156 H Lactate Dehydrogenase C-Reactive Protein Total Protein 6.1 L Albumin 3.3 L Urine WBC (Auto) Urine Creatinine Coronavirus (PCR) 04/12/20 04/13/20 04/13/20 Unknown 05:54 05:54 WBC RBC 5.21 H Hgb 15.6 H Hct 46.1 H MCHC Lymph % (Auto) [place] % (Auto) Lymph # (Auto) [place] # (Auto) Seg Neutrophils % Seg Neuts % (Manual) 92.0 H Lymphocytes % (Manual) 5.0 L Nucleated RBC % Seg Neutrophils # Seg Neutrophils # Man 10.1 H Lymphocytes # (Manual) 0.6 L INR D-Dimer > 69076 H ABG pO2 ABG O2 Saturation Oxyhemoglobin Sodium Chloride Carbon Dioxide BUN Creatinine Glucose Ferritin Direct Bilirubin AST ALT Alkaline Phosphatase Lactate Dehydrogenase C-Reactive Protein Total Protein Albumin Urine WBC (Auto) Urine Creatinine Coronavirus (PCR) Positive A 04/14/20 04/15/20 04/15/20 05:46 10:43 10:43 WBC 12.9 H RBC 5.16 H Hgb Hct 45.9 H MCHC Lymph % (Auto) [place] % (Auto) Lymph # (Auto) [place] # (Auto) Seg Neutrophils % Seg Neuts % (Manual) Lymphocytes % (Manual) Nucleated RBC % Seg Neutrophils # Seg Neutrophils # Man Lymphocytes # (Manual) INR D-Dimer ABG pO2 ABG O2 Saturation Oxyhemoglobin Sodium Chloride Carbon Dioxide 31 H BUN 25 H 26 H Creatinine Glucose 145 H Ferritin Direct Bilirubin AST ALT 61 H Alkaline Phosphatase Lactate Dehydrogenase C-Reactive Protein Total Protein Albumin 2.9 L Urine WBC (Auto) Urine Creatinine Coronavirus (PCR) 04/16/20 04/16/20 04/16/20 07:43 07:43 07:43 WBC RBC Hgb Hct MCHC Lymph % (Auto) [place] % (Auto) Lymph # (Auto) [place] # (Auto) Seg Neutrophils % Seg Neuts % (Manual) Lymphocytes % (Manual) Nucleated RBC % Seg Neutrophils # Seg Neutrophils # Man Lymphocytes # (Manual) INR D-Dimer 1874.60 H ABG pO2 ABG O2 Saturation Oxyhemoglobin Sodium Chloride Carbon Dioxide BUN Creatinine Glucose 120 H Ferritin 750.2 H Direct Bilirubin AST ALT Alkaline Phosphatase Lactate Dehydrogenase 526 H C-Reactive Protein Total Protein 5.9 L Albumin 2.7 L Urine WBC (Auto) Urine Creatinine Coronavirus (PCR) Chest x-ray: image reviewed CT scan - chest: image reviewed (Bilateral consolidations) Allied health notes reviewed: RT
--- NOTE | 2020-04-16 14:21 | Progress Note ---
Assessment and Plan Cultures: Blood culture no growth today SARS CoV2 PCR positive as an outpatient SARS Covid 2 IgG nonreactive Assessment: 52 years old male with history of with no significant past medical history, admitted on 04/08/2020 secondary to 5-day history of generalized malaise, cough, fever, shortness of breath, loss of smell and taste: #Severe sepsis: no fever x 48hr. Likely due to bilateral pneumonia. #Severe COVID pneumonia: Noted elevated inflammatory markers. Chest x-ray with bilateral airspace disease. Noted very high D-dimer >10,000. CTA shows acute b ilateral pulmonary embolism. Venous ultrasound no DVT. D-dimer> 10,000, ferritin 926. Markers improving. #Acute hypoxemic respiratory failure: Initial O2 sats dropped to 75%. Not better. Remains on high flow nasal cannula 100%, 25L. #Elevated LFTs: from COVID #RICKY: from COVID, improving #Acute diarrhea: For COVID-19 infection. #Very elevated D-dimer: Should rule out DVT/PE #Cefepime allergy: On admission patient developed hives #Nonsustained V. tach: per cards Recommendations: -Close monitoring consider transfering to [facility] -Pulmonary on board -On full dose anticoagulation for pulmonary embolism -Continue dexamethasone 6 mg IV/PO twice daily D4 -Completed remdesivir -SARS-CoV-2 IgG negative, patient may benefit from Covid convalescent plasma - ordered -Monitor inflammatory markers - ferritin, Ddimer, CRP, LDH -Continue anticoagulation per System Protocol -Prone positioning as possible All laboratory, cultures and imaging were reviewed. High risk evaluation, including intubation and Dr. Santiago rounding this weekend Will follow Ave Morales MD Infectious Diseases Regulatory Compliance Engineer [facility] M [phone] O [phone] Subjective Date of service: 04/16/20 (]) Principal diagnosis: COVID-19 Interval history: Remains on high flow nasal cannula 100%, 10L, no fever. Objective - Exam Narrative Exam: Physical Exam: reviewed ED and hospitalist notes. Deferred to prevent COVID-19 transmission. - Constitutional Vitals: Vital Signs Temp Pulse Resp BP Pulse Ox 99.0 F 71 24 127/71 95 04/15/20 16:14 04/16/20 11:00 04/15/20 16:14 04/15/20 16:14 04/16/20 11:00 Temperature -Last 24 Hours Temperature 99.0 F - Labs CBC & Chem 7: 04/15/20 10:43 04/16/20 07:43 Labs: Abnormal lab results 04/16/20 04/16/20 04/16/20 Range/Units 07:43 07:43 07:43 D-Dimer 1874.60 H (0-234) ng/mlDDU Glucose 120 H (75-100) mg/dL Ferritin 750.2 H (30.0-300.0) ng/mL Lactate Dehydrogenase 526 H (91-180) units/L Total Protein 5.9 L (6.3-8.2) g/dL Albumin 2.7 L (3.9-5) g/dL
--- NOTE | 2020-04-16 15:28 | Progress Note ---
Assessment and Plan 1. Acute kidney injury: Likely vasomotor nephropathy in the setting of hypotension and COVID-19 infection. Renal US ordered. Monitor renal function. Creatinine level is 1.1 from 0.9 from 1.1 from 1.4 from 2 from 1.9. Avoid nephrotoxic agents. Meds dosage based on GFR. 2. FEN: Metabolic acidosis, improved, monitor. Encouraged PO fluids. Monitor lytes and volume status. 3. Acute respiratory failure with hypoxia: 2/2 COVID PNA. On HFNC O2. 4. Severe sepsis, POA: 2/2 COVID PNA. Followed by ID. 5. Severe COVID pneumonia: S/p Remdesivir. On IV Decadron. Trend inflammatory markers. 6. PE: Lovenox. 7. Elevated LFTs: 2/2 COVID. Subjective: Patient was seen and examined at the bedside. Doing ok. Examination: General appearance: well-developed, appears stated age, on HFNC O2 HEENT: Pupils reacting to light Neck: Trachea midline Respiratory: ctab Cardiology: regular, S1S2, no murmur Gastrointestinal: normoactive bowel sounds, no tenderness, ND Integumentary: no obvious rash Neurologic: AOX4, able to move extremities Ext: no edema Subjective Date of service: 04/16/20 Principal diagnosis: COVID-19 Objective - Vital Signs Vital signs: Vital Signs - 12hr 04/16/20 04/16/20 04/16/20 05:16 11:00 12:27 Temperature 98.0 F 99.0 F Pulse Rate 59 L 71 63 Respiratory 18 24 Rate Blood Pressure 134/72 141/84 O2 Sat by Pulse 98 95 91 Oximetry - Lab 04/15/20 10:43 04/16/20 07:43 Most recent lab results ABG pH 7.376 pH Units (7.350-7.450) 04/09/20 20:11 ABG pCO2 40.4 mm Hg 04/09/20 20:11 ABG pO2 67.1 mm Hg (80.0-90.0) L 04/09/20 20:11 ABG HCO3 23.2 mmol/L (20.0-26.0) 04/09/20 20:11 ABG O2 Saturation 93.2 % (95.0-99.0) L 04/09/20 20:11 Calcium 8.6 mg/dL (8.4-10.2) 04/15/20 10:43 Urine Creatinine 176.6 mg/dL (0.1-20.0) H 04/09/20 Unknown Urine Sodium 35 mmol/L 04/09/20 Unknown Medications & Allergies - Medications Allergies/Adverse Reactions: Allergies cefepime Allergy (Verified 04/09/20 03:19) Hives Active Medications: Generic Name Dose Route Start Last Admin Trade Name Freq PRN Reason Stop Dose Admin Acetaminophen 650 mg 04/09/20 02:25 Acetaminophen 325 Mg Tab PO Q6H PRN Pain MILD(1-3)/Fever >100.5/SARKAR Dexamethasone 6 mg 04/12/20 11:00 04/16/20 11:34 Dexamethasone 4 Mg/Ml Vial IV 04/18/20 21:59 6 mg Q12HR GLORIA Administration Diphenhydramine HCl 25 mg 04/12/20 22:44 04/13/20 21:40 Diphenhydramine 25 Mg Cap PO 25 mg QHS PRN Administration Sleep Enoxaparin Sodium 100 mg 04/12/20 10:00 04/16/20 11:34 Enoxaparin 100 Mg/1 Ml Inj SUB-Q 100 mg Q12HR GLORIA Administration Protocol Guaifenesin 10 ml 04/10/20 13:00 04/14/20 05:17 Guaifenesin Dm 200/20 Mg Oral Liqd 10 Ml PO 10 ml Q4H PRN Administration Cough Hydrophilic Ointment 1 applic 04/11/20 08:00 Lip Therapy Vaseline TP DIRECT PRN Dry Lips Magnesium Hydroxide 30 ml 04/09/20 02:25 Magnesium Hydroxide (Mom) Oral Liqd Udc PO Q4H PRN Constipation Metoprolol Tartrate 25 mg 04/13/20 22:00 04/16/20 11:34 Metoprolol Tartrate 25 Mg Tab PO 25 mg BID GLORIA Administration Midodrine 5 mg 04/09/20 16:00 04/16/20 11:34 Midodrine 5 Mg Tab PO 5 mg TID@0800,1200,1600 GLORIA Administration Morphine Sulfate 2 mg 04/09/20 02:25 04/09/20 18:00 Morphine 2 Mg/1 Ml Inj IV 2 mg Q4H PRN Administration Pain, Moderate (4-6) Ondansetron HCl 4 mg 04/09/20 02:25 04/09/20 18:01 Ondansetron 4 Mg/2 Ml Inj IV 4 mg Q8H PRN Administration Nausea And Vomiting Sodium Chloride 10 ml 04/09/20 10:00 04/16/20 11:35 Sodium Chloride 0.9% 10 Ml Flush Syringe IV 10 ml BID GLORIA Administration Sodium Chloride 10 ml 04/09/20 02:25 Sodium Chloride 0.9% 10 Ml Flush Syringe IV PRN PRN LINE FLUSH
--- NOTE | 2020-04-16 17:38 | Progress Note ---
Assessment and Plan - Patient Problems (1) Severe sepsis Current Visit: Yes Status: Acute Plan to address problem: Patient presented with tachypnea, leukocytosis, pneumonia on CXR, end organ dysfunction with RICKY and respiratory failure Secondary to COVID-19 pneumonia Infectious disease consulted 04/08 BC x2 no growth after 72 hours (2) Pneumonia due to COVID-19 virus Current Visit: Yes Status: Acute Plan to address problem: Pneumonia on CXR 04/09 COVID-19 antibody negative 04/12 Covid ID PCR positive S/p azithromycin for 4 days Continue dexamethasone (BID dosing 04/12-04/18) (IV Dexamethasone for 3 days) and remdesivir (04/10-04/15) Anticoagulation for VTE treatment Prone position as needed Supplemental oxygen as needed Infectious disease and pulmonology consulted Trend inflammatory markers Droplet/contact isolation precautions Pulmonary hygiene OOB 3 times daily and as needed 04/15 convalescent plasma ordered (3) Acute respiratory failure with hypoxia Current Visit: Yes Status: Acute Plan to address problem: Patient presented with hypoxia S/p BiPAP Currently on high flow nasal cannula Continue SPO2 monitoring Pulmonary hygiene Supplemental oxygen as needed, wean as tolerated (4) Pulmonary embolism Current Visit: Yes Status: Acute Plan to address problem: 04/12 CTA chest shows shows acute occlusive pulmonary embolism within the right lung base, occlusive pulmonary emboli but some within the left upper lobe segmental pulmonary artery, possible acute pulmonary embolism in the left lung base with no central saddle embolus. Extensive bilateral airspace disease with somewhat patchy distribution. Hepatic steatosis, right adrenal nodules may be adenomas Therapeutic anticoagulation with Lovenox Supplemental oxygen as needed Consider echo to evaluate for right heart strain if oxygenation is not improving (5) Non-sustained ventricular tachycardia Current Visit: Yes Status: Acute Plan to address problem: Patient had a 14 beat run of V. tach on 04/13 Cardiology consulted, appreciate recommendations Recommend continuation of conservative therapy with beta-hilaria Remote telemetry Patient has not had any more runs of V. tach since initiation of beta-hilaria 04/16 TSH level 0.8.3 (6) Elevated d-dimer Current Visit: Yes Status: Acute Plan to address problem: 04/08 D-dimer 574 04/12 D-dimer greater than 10,000 and is now trending down 04/12 CTA chest shows acute occlusive pulmonary plasm in the right lung base, left upper lobe segmental pulmonary artery, possible acute pulmonary embolism in the left lung base 04/12 bilateral lower extremity Dopplers shows no acute SVT/DVT (7) DVT prophylaxis Current Visit: Yes Status: Acute Plan to address problem: SCDs to bilateral lower extremities while in bed 04/12 started on therapeutic anticoagulation History Interval history: This is a 55-year-old male with no significant medical history who presented to the emergency department on 04/08 with a 5-day history of generalized malaise, cough, fever, shortness of breath, loss of smell and taste and diarrhea. Patient is tested positive for COVID-19 at outpatient facility 3 days before admission. Upon arrival to the emergency department his SPO2 on room air was 85% and was subsequently placed on BiPAP. Work-up emergency department revealed sepsis (presented with hypoxia, hypotension, acute kidney injury and transaminitis likely secondary to bilateral pneumonia), bilateral pneumonia on CXR, acute kidney injury, diarrhea, acute hypoxic respiratory failure, transaminitis and the patient was placed on empiric antibiotics and started on steroids. In the emergency department he received 3.5 L of normal saline, azithromycin, cefepime and dexamethasone. Patient was admitted to the hospitalist service with a consult to nephrology, infectious disease and pulmonology. Today the patient was weaned from 25 L / 100% FiO2 to 15 L / 100% FiO2. RT to wean as tolerated to nasal cannula. Patient is s/p remdesivir and continues her steroid therapy. No acute events reported overnight. 04/09: Remains on BiPAP with 80% FiO2 with SPO2 of 94%. Infectious disease has started the patient on remdesivir. Patient will continue his azithromycin and his ceftriaxone was stopped due to cefepime allergy. SARS CoV-2 IgG negative 04/10/2020. Patient currently with high flow nasal cannula 40 L/min O2 with FiO2 of 100%. Procalcitonin normal at 0.51. CRP elevated at 24.3, LDH 858 and ferritin 1068 and D-dimer 574. Trend inflammatory markers today. 04/11/2020. Patient currently with high flow nasal cannula 40 L/min O2 with FiO2 of 100%. Continue dexamethasone, remdesivir and prone positioning when possible. Continue to trend inflammatory markers. 04/12: Patient is on 25 L, 100% FiO2 high flow nasal cannula, D-dimer resulted as greater than 10,000 and CTA chest was obtained which showed small bilateral pulmonary embolism however bilateral lower extremities shows no acute DVT/SV. patient's 04/13: COVID-19 PCR was resent today. COVID-19 PCR positive,Patient still remains on high flow nasal cannula and he had a 14 beat of V. tach overnight. Stat potassium and magnesium ordered which is still pending at this time. Cardiology consulted 04/14: Remains on high flow nasal cannula. He states that he is symptomatically better. Potassium level this morning is within normal limits. Patient did not have any more runs of V. tach overnight. 04/15: Patient still remains on high flow nasal cannula at 35 L, 100% FiO2. RT attempted to wean and he desatted to the high 80s. Today is his last day of remdesivir. ID suggests the use of convalescent plasma and we have ordered a type and cross and the plasma. Hospitalist Physical - Physical exam Narrative exam: Not conducted in efforts to conserve PPE and limit exposure to COVID-19 - Constitutional Vitals: Temp Pulse Resp BP Pulse Ox 99.0 F 63 24 141/84 91 04/16/20 12:27 04/16/20 12:27 04/16/20 12:27 04/16/20 12:27 04/16/20 12:27 Results - Labs CBC & Chem 7: 04/15/20 10:43 04/16/20 07:43 Labs: Laboratory Last Values WBC 12.9 K/mm3 (4.5-11.0) H 04/15/20 10:43 RBC 5.16 M/mm3 (3.65-5.03) H 04/15/20 10:43 Hgb 15.1 gm/dl (11.8-15.2) 04/15/20 10:43 Hct 45.9 % (35.5-45.6) H 04/15/20 10:43 MCV 89 fl (84-94) 04/15/20 10:43 MCH 29 pg (28-32) 04/15/20 10:43 MCHC 33 % (32-34) 04/15/20 10:43 RDW 14.2 % (13.2-15.2) 04/15/20 10:43 Plt Count 326 K/mm3 (140-440) 04/15/20 10:43 Lymph % (Auto) 4.8 % (13.4-35.0) L 04/10/20 04:57 [place] % (Auto) 9.5 % (0.0-7.3) H 04/10/20 04:57 Eos % (Auto) 0.0 % (0.0-4.3) 04/10/20 04:57 Baso % (Auto) 0.1 % (0.0-1.8) 04/10/20 04:57 Lymph # (Auto) 0.6 K/mm3 (1.2-5.4) L 04/10/20 04:57 [place] # (Auto) 1.2 K/mm3 (0.0-0.8) H 04/10/20 04:57 Eos # (Auto) 0.0 K/mm3 (0.0-0.4) 04/10/20 04:57 Baso # (Auto) 0.0 K/mm3 (0.0-0.1) 04/10/20 04:57 Add Manual Diff Complete 04/13/20 05:54 Total Counted 100 04/13/20 05:54 Seg Neutrophils % [employer] 04/13/20 05:54 Seg Neuts % (Manual) 92.0 % (40.0-70.0) H 04/13/20 05:54 Band Neutrophils % 3.0 % 04/12/20 08:17 Lymphocytes % (Manual) 5.0 % (13.4-35.0) L 04/13/20 05:54 Reactive Lymphs % (Man) 1.0 % 04/11/20 09:54 Monocytes % (Manual) 3.0 % (0.0-7.3) 04/13/20 05:54 Metamyelocytes % 1.0 % 04/12/20 08:17 Myelocytes % 1.0 % 04/12/20 08:17 Nucleated RBC % Not Reportable 04/13/20 05:54 Seg Neutrophils # 10.5 K/mm3 (1.8-7.7) H 04/10/20 04:57 Seg Neutrophils # Man 10.1 K/mm3 (1.8-7.7) H 04/13/20 05:54 Band Neutrophils # 0.0 K/mm3 04/13/20 05:54 Lymphocytes # (Manual) 0.6 K/mm3 (1.2-5.4) L 04/13/20 05:54 Abs React Lymphs (Man) 0.0 K/mm3 04/13/20 05:54 Monocytes # (Manual) 0.3 K/mm3 (0.0-0.8) 04/13/20 05:54 Eosinophils # (Manual) 0.0 K/mm3 (0.0-0.4) 04/13/20 05:54 Basophils # (Manual) 0.0 K/mm3 (0.0-0.1) 04/13/20 05:54 Metamyelocytes # 0.0 K/mm3 04/13/20 05:54 Myelocytes # 0.0 K/mm3 04/13/20 05:54 Promyelocytes # 0.0 K/mm3 04/13/20 05:54 Blast Cells # 0.0 K/mm3 04/13/20 05:54 WBC Morphology Not Reportable 04/13/20 05:54 Hypersegmented Neuts Not Reportable 04/13/20 05:54 Hyposegmented Neuts Not Reportable 04/13/20 05:54 Hypogranular Neuts Not Reportable 04/13/20 05:54 Smudge Cells Not Reportable 04/13/20 05:54 Toxic Granulation 1+ 04/13/20 05:54 Toxic Vacuolation Not Reportable 04/13/20 05:54 Dohle Bodies Not Reportable 04/13/20 05:54 Pelger-Huet Anomaly Not Reportable 04/13/20 05:54 Jason Rods Not Reportable 04/13/20 05:54 Platelet Estimate Consistent w auto 04/13/20 05:54 Clumped Platelets Not Reportable 04/13/20 05:54 Plt Clumps, EDTA Not Reportable 04/13/20 05:54 Large Platelets Not Reportable 04/13/20 05:54 Giant Platelets Not Reportable 04/13/20 05:54 Platelet Satelliting Not Reportable 04/13/20 05:54 Plt Morphology Comment Not Reportable 04/13/20 05:54 RBC Morphology Normal 04/13/20 05:54 Dimorphic RBCs Not Reportable 04/13/20 05:54 Polychromasia Not Reportable 04/13/20 05:54 Hypochromasia Not Reportable 04/13/20 05:54 Poikilocytosis Not Reportable 04/13/20 05:54 Anisocytosis Not Reportable 04/13/20 05:54 Microcytosis Not Reportable 04/13/20 05:54 Macrocytosis Not Reportable 04/13/20 05:54 Spherocytes Not Reportable 04/13/20 05:54 Pappenheimer Bodies Not Reportable 04/13/20 05:54 Sickle Cells Not Reportable 04/13/20 05:54 Target Cells Not Reportable 04/13/20 05:54 Tear Drop Cells Not Reportable 04/13/20 05:54 Ovalocytes Not Reportable 04/13/20 05:54 Helmet Cells Not Reportable 04/13/20 05:54 [place] Bodies Not Reportable 04/13/20 05:54 [place] Rings Not Reportable 04/13/20 05:54 [place] Cells Not Reportable 04/13/20 05:54 Bite Cells Not Reportable 04/13/20 05:54 Crenated Cell Not Reportable 04/13/20 05:54 Elliptocytes Not Reportable 04/13/20 05:54 Acanthocytes (Spur) Not Reportable 04/13/20 05:54 Rouleaux Not Reportable 04/13/20 05:54 Hemoglobin C Crystals Not Reportable 04/13/20 05:54 Schistocytes Not Reportable 04/13/20 05:54 Malaria parasites Not Reportable 04/13/20 05:54 Nehemias Bodies Not Reportable 04/13/20 05:54 Hem Pathologist Commnt No 04/13/20 05:54 PT 14.4 Sec. (12.2-14.9) 04/10/20 04:57 INR 1.14 (0.87-1.13) H 04/10/20 04:57 D-Dimer 1874.60 ng/mlDDU (0-234) H 04/16/20 07:43 ABG pH 7.376 pH Units (7.350-7.450) 04/09/20 20:11 ABG pCO2 40.4 mm Hg 04/09/20 20:11 ABG pO2 67.1 mm Hg (80.0-90.0) L 04/09/20 20:11 ABG HCO3 23.2 mmol/L (20.0-26.0) 04/09/20 20:11 ABG O2 Saturation 93.2 % (95.0-99.0) L 04/09/20 20:11 ABG O2 Content 19.8 (0.0-44) 04/09/20 20:11 ABG Base Excess -1.8 mmol/L (-2.0-3.0) 04/09/20 20:11 ABG Hemoglobin 15.4 gm/dl (14.0-18.0) 04/09/20 20:11 ABG Carboxyhemoglobin 1.0 % (0.0-5.0) 04/09/20 20:11 ABG Methemoglobin 0.6 % (0.0-1.5) 04/09/20 20:11 Oxyhemoglobin 91.7 % (95.0-99.0) L 04/09/20 20:11 FiO2 80 % 04/09/20 20:11 Sodium 143 mmol/L (137-145) 04/15/20 10:43 Potassium 4.2 mmol/L (3.6-5.0) 04/15/20 10:43 Chloride 105.7 mmol/L (98-107) 04/15/20 10:43 Carbon Dioxide 31 mmol/L (22-30) H 04/15/20 10:43 Anion Gap 11 mmol/L 04/15/20 10:43 BUN 26 mg/dL (9-20) H 04/15/20 10:43 Creatinine 1.1 mg/dL (0.8-1.3) 04/15/20 10:43 Estimated GFR > 60 ml/min 04/15/20 10:43 BUN/Creatinine Ratio 24 % 04/15/20 10:43 Glucose 120 mg/dL (75-100) H 04/16/20 07:43 POC Glucose 105 mg/dL (70-105) 04/13/20 16:20 Lactic Acid 1.50 mmol/L (0.7-2.0) 04/09/20 09:55 Calcium 8.6 mg/dL (8.4-10.2) 04/15/20 10:43 Ferritin 750.2 ng/mL (30.0-300.0) H 04/16/20 07:43 Total Bilirubin 0.50 mg/dL (0.1-1.2) 04/16/20 07:43 Direct Bilirubin < 0.2 mg/dL (0-0.2) 04/16/20 07:43 Indirect Bilirubin 0.3 mg/dL 04/16/20 07:43 AST 24 units/L (5-40) 04/16/20 07:43 ALT 55 units/L (7-56) 04/16/20 07:43 Alkaline Phosphatase 98 units/L (35-129) 04/16/20 07:43 Lactate Dehydrogenase 526 units/L (91-180) H 04/16/20 07:43 C-Reactive Protein 1.30 mg/dL (0.00-1.30) 04/16/20 07:43 Total Protein 5.9 g/dL (6.3-8.2) L 04/16/20 07:43 Albumin 2.7 g/dL (3.9-5) L 04/16/20 07:43 Albumin/Globulin Ratio 0.8 % 04/16/20 07:43 Procalcitonin 0.51 ng/mL (<0.15) 04/08/20 23:06 TSH 0.843 mlU/mL (0.270-4.200) 04/16/20 07:43 Urine Color Yellow (Yellow) 04/09/20 Unknown Urine Turbidity Clear (Clear) 04/09/20 Unknown Urine pH 5.0 (5.0-7.0) 04/09/20 Unknown Ur Specific [place] 1.018 (1.003-1.030) 04/09/20 Unknown Urine Protein <15 mg/dl mg/dL (Negative) 04/09/20 Unknown Urine Glucose (UA) Neg mg/dL (Negative) 04/09/20 Unknown Urine Ketones Neg mg/dL (Negative) 04/09/20 Unknown Urine Blood Neg (Negative) 04/09/20 Unknown Urine Nitrite Neg (Negative) 04/09/20 Unknown Urine Bilirubin Neg (Negative) 04/09/20 Unknown Urine Urobilinogen < 2.0 mg/dL (<2.0) 04/09/20 Unknown Ur Leukocyte Esterase Neg (Negative) 04/09/20 Unknown Urine WBC (Auto) 8.0 /HPF (0.0-6.0) H 04/09/20 Unknown Urine RBC (Auto) 3.0 /HPF (0.0-6.0) 04/09/20 Unknown U Epithel Cells (Auto) 1.0 /HPF (0-13.0) 04/09/20 Unknown Hyaline Casts 2 /LPF 04/09/20 Unknown Urine Mucus Few /HPF 04/09/20 Unknown Urine Eosinophils None seen (None Seen) 04/09/20 Unknown Urine Creatinine 176.6 mg/dL (0.1-20.0) H 04/09/20 Unknown Urine Sodium 35 mmol/L 04/09/20 Unknown Coronavirus (PCR) Positive (Negative) A 04/12/20 Unknown SARS-CoV-2 IgG Ab Nonreactive (NonReactive) 04/09/20 09:55 Blood Type O POSITIVE 04/15/20 16:50 Antibody Screen Negative 04/15/20 16:50 [place]/IV: Voiding Method Urinal IV Catheter Type [Right INT / Saline Lock Forearm] IV Catheter Type [Right Wrist] Peripheral IV IV Catheter Type [Left INT / Saline Lock Antecubital] IV Catheter Type [Right INT / Saline Lock Antecubital] Active Medications - Current Medications Current Medications: Generic Name Dose Route Start Last Admin Trade Name Freq PRN Reason Stop Dose Admin Acetaminophen 650 mg 04/09/20 02:25 Acetaminophen 325 Mg Tab PO Q6H PRN Pain MILD(1-3)/Fever >100.5/SARKAR Dexamethasone 6 mg 04/12/20 11:00 04/16/20 11:34 Dexamethasone 4 Mg/Ml Vial IV 04/18/20 21:59 6 mg Q12HR GLORIA Administration Diphenhydramine HCl 25 mg 04/12/20 22:44 04/13/20 21:40 Diphenhydramine 25 Mg Cap PO 25 mg QHS PRN Administration Sleep Enoxaparin Sodium 100 mg 04/12/20 10:00 04/16/20 11:34 Enoxaparin 100 Mg/1 Ml Inj SUB-Q 100 mg Q12HR GLORIA Administration Protocol Guaifenesin 10 ml 04/10/20 13:00 04/14/20 05:17 Guaifenesin Dm 200/20 Mg Oral Liqd 10 Ml PO 10 ml Q4H PRN Administration Cough Hydrophilic Ointment 1 applic 04/11/20 08:00 Lip Therapy Vaseline TP DIRECT PRN Dry Lips Magnesium Hydroxide 30 ml 04/09/20 02:25 Magnesium Hydroxide (Mom) Oral Liqd Udc PO Q4H PRN Constipation Metoprolol Tartrate 25 mg 04/13/20 22:00 04/16/20 11:34 Metoprolol Tartrate 25 Mg Tab PO 25 mg BID GLORIA Administration Midodrine 5 mg 04/09/20 16:00 04/16/20 11:34 Midodrine 5 Mg Tab PO 5 mg TID@0800,1200,1600 GLORIA Administration Morphine Sulfate 2 mg 04/09/20 02:25 04/09/20 18:00 Morphine 2 Mg/1 Ml Inj IV 2 mg Q4H PRN Administration Pain, Moderate (4-6) Ondansetron HCl 4 mg 04/09/20 02:25 04/09/20 18:01 Ondansetron 4 Mg/2 Ml Inj IV 4 mg Q8H PRN Administration Nausea And Vomiting Sodium Chloride 10 ml 04/09/20 10:00 04/16/20 11:35 Sodium Chloride 0.9% 10 Ml Flush Syringe IV 10 ml BID GLORIA Administration Sodium Chloride 10 ml 04/09/20 02:25 Sodium Chloride 0.9% 10 Ml Flush Syringe IV PRN PRN LINE FLUSH Nutrition/Malnutrition Assess - Dietary Evaluation Nutrition/Malnutrition Findings: Nutrition Notes Start: 04/09/20 11:14 Freq: Status: Active Protocol: Document 04/13/20 16:01 CW (Rec: 04/13/20 16:11 CW [email or web address]) Co-Sign 04/13/20 16:01 MK Nutrition Notes Initial or Follow up Brief Note Current Diagnosis Acute Kidney Injury, Respiratory Failure Other Pertinent Diagnosis Sepsis, COVID-19 + Current Diet Regular Height 6 ft Weight 114.3 kg [place] Body Weight (kg) 80.90 BMI 34.2 Weight Status Obese Subjective/Other Information FU for MD diet education order . Pt is COVID postive. Pt answered room phone and reported eating 75% of lunch today. Per chart pt ate 100% breakfast and 75% lunch on . Pt is open to diet education and asks questions about low sodium. Gave RN pt diet education handouts. Per RN, pt preferences recorded. Pt does not report drinking ONS. #1 Nutrition Diagnosis Food and nutrition-related knowledge deficit Etiology RICKY As Evidenced by Signs and Symptoms pt had questions about sodium Nutrition Intervention Teaching Recipient Patient Learning Readiness Good Teaching Methods Discussion,Handout Education Handouts Provided AND RICKY Barriers to Learning Environmental RD phone number provided Yes Patient aware of follow up options Yes Actions To Overcome Barriers Collaboration with Other Providers Anticipated Discharge Needs: Regular Revisit per MD consult or patient Sign Off request:
[2020-04-17] MEDS: diphenhydrAMINE 25 MG CAP PO PRN (00:02)
[2020-04-17 06:02] LABS: ABG Base Excess 1.7 mmol/L (-2.0-3.0); ABG HCO3 26.8 mmol/L (20.0-26.0); ABG Methemoglobin 0.5 % (0.0-1.5); ABG Oxygen Saturation 97.4 % (95.0-99.0); ABG PCO2 43.5 mm Hg; ABG PH 7.406 pH Units (7.350-7.450); ABG PO2 98.9 mm Hg (80.0-90.0)
[2020-04-17 07:28] LABS: Hematocrit 44.6 % (35.5-45.6); Hemoglobin 14.9 gm/dl (11.8-15.2); Mean Corpuscular HGB Conc 33 % (32-34); Mean Corpuscular Volume 89 fl (84-94); Platelet Count 292 K/mm3 (140-440); Red Blood Count 5.04 M/mm3 (3.65-5.03); Red Cell Distribution Width 14.1 % (13.2-15.2)
[2020-04-17 07:42] LABS: BUN/Creatinine Ratio 22; Blood Urea Nitrogen 22 mg/dL (9-20); Calcium 8.3 mg/dL (8.4-10.2); Hemolysis Index 31
[2020-04-17] MEDS: MIDODRINE 5 MG TAB PO SCH ×3 (07:56→13:33)
--- NOTE | 2020-04-17 07:57 | Progress Note ---
Assessment and Plan 52 years old male with history of with no significant past medical history, admitted on 04/08/2020 secondary to 5-day history of generalized malaise, cough, fever, shortness of breath, loss of smell and taste -Severe sepsis -Acute hypoxemic respiratory failure -Bilateral Pneumonia -Severe COVID infection -Elevated LFTs -RICKY -Acute diarrhea, from COVID -Acidosis -Bilateral pulmonary embolism Continue all care. Discharge planning Outpatient pulmonary follow up -Wean supplemental oxygen for O2 sats>90% -Awake proning, lateral decubitus positioning as tolerated - accuchecks with glycemic control per SSI (While critically ill target blood glucose of 140-180 mg/dL; avoid hypoglycemia) - Monitor liver function test , avoid hepatotoxic agents - Avoid nephrotoxins, renally dose all medications, conservative fluid management - Avoid benzodiazepines, reduce the possibility of delirium - Maintenance of sleep-wake cycle - Aspiration precautions -CXR and ABG as clinically indicated -Supportive transfusions to keep HgB >7g/dL - Monitor hemodynamics closely - continue other care per attending / other consultants COVID SPECIFIC INTERVENTIONS - SARS CoV-2 IgG negative, s/p Convalescent plasma -s/p Remdesivir -On dexamethasone -Monitor inflammatory markers - ferritin, dimer, CRP, LDH per facility protocol -Anticoagulation per System Protocol based on d-dimer- on therapeutic anticoagulation for PE -Continue contact and airborne isolation per facility protocol CONDITION: FAIR PROGNOSIS: FAIR CODE STATUS: FULL CODE Subjective Date of service: 04/17/20 Principal diagnosis: COVID-19 Interval history: Follow up for: -Severe sepsis;Acute hypoxemic respiratory failure on HFOT; Acute bilateral pulmonary emboli;Bilateral Pneumonia;Severe COVID infection No adverse overnight events reported. Symptom improvement. On 4L NC States he feels much better. s/p Convalescent plasma therapy Nursing and respiratory staff consulted. Objective Vital Signs - 12hr 04/16/20 04/16/20 04/17/20 21:06 22:40 05:44 Temperature 98.5 F Pulse Rate 76 57 L Respiratory 20 Rate Blood Pressure 135/65 139/87 O2 Sat by Pulse 92 94 Oximetry Constitutional: no acute distress, alert Eyes: non-icteric ENT: oropharynx moist Neck: supple, no lymphadenopathy, no JVD, other (large short neck) Effort: mildly labored Ascultation: Bilateral: diminished breath sounds, rhonchi Cardiovascular: regular rate and rhythm, other (S1,S2) Gastrointestinal: normoactive bowel sounds, soft, non-tender, non-distended Integumentary: normal Extremities: no cyanosis, no edema, pulses normal Neurologic: normal mental status, non-focal exam, pupils equal and round, CN II- XII normal, motor strength normal and Psychiatric: mood appropriate, affect normal CBC and BMP: 04/17/20 07:06 04/17/20 07:06 ABG, PT/INR, D-dimer: ABG ABG pH 7.406 pH Units (7.350-7.450) 04/17/20 05:40 ABG pCO2 43.5 mm Hg 04/17/20 05:40 ABG pO2 98.9 mm Hg (80.0-90.0) H 04/17/20 05:40 ABG O2 Saturation 97.4 % (95.0-99.0) 04/17/20 05:40 PT/INR, D-dimer PT 14.4 Sec. (12.2-14.9) 04/10/20 04:57 INR 1.14 (0.87-1.13) H 04/10/20 04:57 D-Dimer 1874.60 ng/mlDDU (0-234) H 04/16/20 07:43 Abnormal lab findings: Abnormal Labs 04/08/20 04/08/20 04/08/20 23:06 23:06 23:06 WBC RBC 5.59 H Hgb 17.0 H Hct 48.5 H MCHC 35 H Lymph % (Auto) 4.5 L [place] % (Auto) 7.5 H Lymph # (Auto) 0.5 L [place] # (Auto) Seg Neutrophils % 87.4 H Seg Neuts % (Manual) Lymphocytes % (Manual) Nucleated RBC % Seg Neutrophils # 9.3 H Seg Neutrophils # Man Lymphocytes # (Manual) INR D-Dimer 574.04 H ABG pO2 ABG HCO3 ABG O2 Saturation Oxyhemoglobin Sodium 136 L Chloride Carbon Dioxide BUN 31 H Creatinine 1.9 H Glucose 132 H Calcium Ferritin Direct Bilirubin AST 107 H ALT 69 H Alkaline Phosphatase Lactate Dehydrogenase C-Reactive Protein Total Protein Albumin 3.5 L Urine WBC (Auto) Urine Creatinine Coronavirus (PCR) 04/08/20 04/08/20 04/09/20 23:06 23:06 09:55 WBC RBC Hgb Hct MCHC Lymph % (Auto) [place] % (Auto) Lymph # (Auto) [place] # (Auto) Seg Neutrophils % Seg Neuts % (Manual) Lymphocytes % (Manual) Nucleated RBC % Seg Neutrophils # Seg Neutrophils # Man Lymphocytes # (Manual) INR D-Dimer ABG pO2 ABG HCO3 ABG O2 Saturation Oxyhemoglobin Sodium Chloride Carbon Dioxide 17 L BUN 33 H Creatinine 2.0 H Glucose 131 H 135 H Calcium Ferritin 1068.0 H Direct Bilirubin AST ALT Alkaline Phosphatase Lactate Dehydrogenase 858 H C-Reactive Protein 24.30 H Total Protein Albumin Urine WBC (Auto) Urine Creatinine Coronavirus (PCR) 04/09/20 04/09/20 04/09/20 20:11 Unknown Unknown WBC RBC Hgb Hct MCHC Lymph % (Auto) [place] % (Auto) Lymph # (Auto) [place] # (Auto) Seg Neutrophils % Seg Neuts % (Manual) Lymphocytes % (Manual) Nucleated RBC % Seg Neutrophils # Seg Neutrophils # Man Lymphocytes # (Manual) INR D-Dimer ABG pO2 67.1 L ABG HCO3 ABG O2 Saturation 93.2 L Oxyhemoglobin 91.7 L Sodium Chloride Carbon Dioxide BUN Creatinine Glucose Calcium Ferritin Direct Bilirubin AST ALT Alkaline Phosphatase Lactate Dehydrogenase C-Reactive Protein Total Protein Albumin Urine WBC (Auto) 8.0 H Urine Creatinine 176.6 H Coronavirus (PCR) 04/10/20 04/10/20 04/10/20 04:57 04:57 04:57 WBC 12.3 H RBC Hgb Hct MCHC Lymph % (Auto) 4.8 L [place] % (Auto) 9.5 H Lymph # (Auto) 0.6 L [place] # (Auto) 1.2 H Seg Neutrophils % 85.6 H Seg Neuts % (Manual) Lymphocytes % (Manual) Nucleated RBC % Seg Neutrophils # 10.5 H Seg Neutrophils # Man Lymphocytes # (Manual) INR 1.14 H D-Dimer ABG pO2 ABG HCO3 ABG O2 Saturation Oxyhemoglobin Sodium 146 H Chloride 107.4 H Carbon Dioxide BUN 43 H Creatinine 1.4 H Glucose 137 H Calcium Ferritin Direct Bilirubin AST ALT Alkaline Phosphatase Lactate Dehydrogenase C-Reactive Protein Total Protein Albumin Urine WBC (Auto) Urine Creatinine Coronavirus (PCR) 04/10/20 04/11/20 04/11/20 04:57 09:54 09:54 WBC RBC Hgb Hct MCHC Lymph % (Auto) [place] % (Auto) Lymph # (Auto) [place] # (Auto) Seg Neutrophils % Seg Neuts % (Manual) Lymphocytes % (Manual) Nucleated RBC % Seg Neutrophils # Seg Neutrophils # Man Lymphocytes # (Manual) INR D-Dimer > 87261 H ABG pO2 ABG HCO3 ABG O2 Saturation Oxyhemoglobin Sodium Chloride Carbon Dioxide BUN Creatinine Glucose Calcium Ferritin Direct Bilirubin AST 50 H 76 H ALT 89 H Alkaline Phosphatase 134 H Lactate Dehydrogenase C-Reactive Protein Total Protein Albumin 3.2 L 3.0 L Urine WBC (Auto) Urine Creatinine Coronavirus (PCR) 04/11/20 04/11/20 04/11/20 09:54 09:54 09:54 WBC 11.8 H RBC 5.26 H Hgb 15.4 H Hct 46.1 H MCHC Lymph % (Auto) [place] % (Auto) Lymph # (Auto) [place] # (Auto) Seg Neutrophils % Seg Neuts % (Manual) 91.0 H Lymphocytes % (Manual) 6.0 L Nucleated RBC % 1.0 H Seg Neutrophils # Seg Neutrophils # Man 10.7 H Lymphocytes # (Manual) 0.7 L INR D-Dimer ABG pO2 ABG HCO3 ABG O2 Saturation Oxyhemoglobin Sodium Chloride 107.1 H Carbon Dioxide BUN 33 H Creatinine Glucose 111 H Calcium Ferritin 926.3 H Direct Bilirubin AST ALT Alkaline Phosphatase Lactate Dehydrogenase 815 H C-Reactive Protein 5.70 H Total Protein Albumin Urine WBC (Auto) Urine Creatinine Coronavirus (PCR) 04/12/20 04/12/20 04/12/20 08:17 08:17 08:17 WBC RBC 5.07 H Hgb Hct MCHC Lymph % (Auto) [place] % (Auto) Lymph # (Auto) [place] # (Auto) Seg Neutrophils % Seg Neuts % (Manual) 78.0 H Lymphocytes % (Manual) 10.0 L Nucleated RBC % Seg Neutrophils # Seg Neutrophils # Man 8.0 H Lymphocytes # (Manual) 1.0 L INR D-Dimer ABG pO2 ABG HCO3 ABG O2 Saturation Oxyhemoglobin Sodium Chloride Carbon Dioxide 31 H BUN 25 H Creatinine Glucose Calcium Ferritin Direct Bilirubin 0.3 H AST 63 H ALT 97 H Alkaline Phosphatase 156 H Lactate Dehydrogenase C-Reactive Protein Total Protein 6.1 L Albumin 3.3 L Urine WBC (Auto) Urine Creatinine Coronavirus (PCR) 04/12/20 04/13/20 04/13/20 Unknown 05:54 05:54 WBC RBC 5.21 H Hgb 15.6 H Hct 46.1 H MCHC Lymph % (Auto) [place] % (Auto) Lymph # (Auto) [place] # (Auto) Seg Neutrophils % Seg Neuts % (Manual) 92.0 H Lymphocytes % (Manual) 5.0 L Nucleated RBC % Seg Neutrophils # Seg Neutrophils # Man 10.1 H Lymphocytes # (Manual) 0.6 L INR D-Dimer > 15732 H ABG pO2 ABG HCO3 ABG O2 Saturation Oxyhemoglobin Sodium Chloride Carbon Dioxide BUN Creatinine Glucose Calcium Ferritin Direct Bilirubin AST ALT Alkaline Phosphatase Lactate Dehydrogenase C-Reactive Protein Total Protein Albumin Urine WBC (Auto) Urine Creatinine Coronavirus (PCR) Positive A 04/14/20 04/15/20 04/15/20 05:46 10:43 10:43 WBC 12.9 H RBC 5.16 H Hgb Hct 45.9 H MCHC Lymph % (Auto) [place] % (Auto) Lymph # (Auto) [place] # (Auto) Seg Neutrophils % Seg Neuts % (Manual) Lymphocytes % (Manual) Nucleated RBC % Seg Neutrophils # Seg Neutrophils # Man Lymphocytes # (Manual) INR D-Dimer ABG pO2 ABG HCO3 ABG O2 Saturation Oxyhemoglobin Sodium Chloride Carbon Dioxide 31 H BUN 25 H 26 H Creatinine Glucose 145 H Calcium Ferritin Direct Bilirubin AST ALT 61 H Alkaline Phosphatase Lactate Dehydrogenase C-Reactive Protein Total Protein Albumin 2.9 L Urine WBC (Auto) Urine Creatinine Coronavirus (PCR) 04/16/20 04/16/20 04/16/20 07:43 07:43 07:43 WBC RBC Hgb Hct MCHC Lymph % (Auto) [place] % (Auto) Lymph # (Auto) [place] # (Auto) Seg Neutrophils % Seg Neuts % (Manual) Lymphocytes % (Manual) Nucleated RBC % Seg Neutrophils # Seg Neutrophils # Man Lymphocytes # (Manual) INR D-Dimer 1874.60 H ABG pO2 ABG HCO3 ABG O2 Saturation Oxyhemoglobin Sodium Chloride Carbon Dioxide BUN Creatinine Glucose 120 H Calcium Ferritin 750.2 H Direct Bilirubin AST ALT Alkaline Phosphatase Lactate Dehydrogenase 526 H C-Reactive Protein Total Protein 5.9 L Albumin 2.7 L Urine WBC (Auto) Urine Creatinine Coronavirus (PCR) 04/17/20 04/17/20 04/17/20 05:40 07:06 07:06 WBC 12.1 H RBC 5.04 H Hgb Hct MCHC Lymph % (Auto) [place] % (Auto) Lymph # (Auto) [place] # (Auto) Seg Neutrophils % Seg Neuts % (Manual) Lymphocytes % (Manual) Nucleated RBC % Seg Neutrophils # Seg Neutrophils # Man Lymphocytes # (Manual) INR D-Dimer ABG pO2 98.9 H ABG HCO3 26.8 H ABG O2 Saturation Oxyhemoglobin Sodium Chloride Carbon Dioxide BUN 22 H Creatinine Glucose 132 H Calcium 8.3 L Ferritin Direct Bilirubin AST ALT Alkaline Phosphatase Lactate Dehydrogenase C-Reactive Protein Total Protein Albumin Urine WBC (Auto) Urine Creatinine Coronavirus (PCR) Chest x-ray: image reviewed Allied health notes reviewed: RT
--- NOTE | 2020-04-17 08:59 | XRay Report ---
CHEST 1 VIEW 04/17/2020 7:40 AM INDICATION / CLINICAL INFORMATION: Pneumonia, resp failure, COVID. COMPARISON: 04/08/2020 FINDINGS: SUPPORT DEVICES: None. HEART / MEDIASTINUM: No significant abnormality. LUNGS / PLEURA: There are diffuse bilateral pulmonary opacities. There is been slight improvement. No pneumothorax. ADDITIONAL FINDINGS: No significant additional findings. IMPRESSION: 1. Slight interval improvement. Signer Name: César Owusu MD Signed: 04/17/2020 8:54 AM Workstation Name: [id number]
[2020-04-17] MEDS ORDERED: DEXAMETHASONE 4 MG TAB PO SCH (10:00)
[2020-04-17] MEDS: dexAMETHasone 4 MG/ML VIAL IV SCH (10:29)
[2020-04-17] MEDS: METOPROLOL TARTRATE 25 MG TAB PO SCH (10:30)
[2020-04-17] MEDS: ENOXAPARIN 100 MG/1 ML INJ SUB-Q SCH (10:30)
[2020-04-17 12:22] VITALS: BP 141/84
--- NOTE | 2020-04-17 13:18 | Discharge Summary ---
Providers - Providers Date of Admission: 04/09/20 00:21 Date of discharge: 04/17/20 Attending physician: KASSANDRA HU 04/09/20 02:27 Consult to Dietitian/Nutrition [CONS] Routine Physician Instructions: Reason For Exam: Reason for Consult: Diet education Consult to Physician [CONS] Routine Comment: Consulting Provider: CHAN MCKEON Physician Instructions: Reason For Exam: Pneumonia with Covid 19 04/09/20 02:31 Consult to Physician [CONS] Routine Comment: Consulting Provider: RADHA EAST Physician Instructions: Reason For Exam: Pneumonia,hypoxia- covid 19 positive 04/09/20 02:38 Consult to Physician [CONS] Routine Comment: Consulting Provider: REINALDO VEE Physician Instructions: Reason For Exam: Renal Failure 04/09/20 07:51 Consult to Physician [CONS] Routine Comment: Consulting Provider: YANA MANNING Physician Instructions: Reason For Exam: Pneumonia, COVID-19 04/13/20 12:18 Consult to Physician [CONS] Routine Comment: Consulting Provider: BRIAN GARCÍA Physician Instructions: Reason For Exam: 14 beat run of [facility] Primary care physician: EARLY LEARNING TEACHER Hospitalization Condition: Critical Hospital course: 55-year-old male with no significant medical history who presented to the emergency department on 04/08 with a 5-day history of generalized malaise, cough, fever, shortness of breath, loss of smell and taste and diarrhea. Patient is tested positive for COVID-19 at outpatient facility 3 days before admission. Upon arrival to the emergency department his SPO2 on room air was 85% and was subsequently placed on BiPAP. Work-up emergency department revealed sepsis (presented with hypoxia, hypotension, acute kidney injury and transaminitis likely secondary to bilateral pneumonia), bilateral pneumonia on CXR, acute kidney injury, diarrhea, acute hypoxic respiratory failure, transaminitis and the patient was placed on empiric antibiotics and started on steroids. In the emergency department he received 3.5 L of normal saline, azithromycin, cefepime and dexamethasone. Patient was admitted to the hospitalist service with a consult to nephrology, infectious disease and pulmonology. Today the patient was weaned from 25 L / 100% FiO2 to 15 L / 100% FiO2. RT to wean as tolerated to nasal cannula. Patient is s/p remdesivir and continues her steroid therapy. No acute events reported overnight. 04/09: Remains on BiPAP with 80% FiO2 with SPO2 of 94%. Infectious disease has started the patient on remdesivir. Patient will continue his azithromycin and his ceftriaxone was stopped due to cefepime allergy. SARS CoV-2 IgG negative 04/10/2020. Patient currently with high flow nasal cannula 40 L/min O2 with FiO2 of 100%. Procalcitonin normal at 0.51. CRP elevated at 24.3, LDH 858 and ferritin 1068 and D-dimer 574. Trend inflammatory markers today. 04/11/2020. Patient currently with high flow nasal cannula 40 L/min O2 with FiO2 of 100%. Continue dexamethasone, remdesivir and prone positioning when possible. Continue to trend inflammatory markers. 04/12: Patient is on 25 L, 100% FiO2 high flow nasal cannula, D-dimer resulted as greater than 10,000 and CTA chest was obtained which showed small bilateral pulmonary embolism however bilateral lower extremities shows no acute DVT/SV. patient's 04/13: COVID-19 PCR was resent today. COVID-19 PCR positive,Patient still remains on high flow nasal cannula and he had a 14 beat of V. tach overnight. Stat potassium and magnesium ordered which is still pending at this time. Cardiology consulted 04/14: Remains on high flow nasal cannula. He states that he is symptomatically better. Potassium level this morning is within normal limits. Patient did not have any more runs of V. tach overnight. 04/15: Patient still remains on high flow nasal cannula at 35 L, 100% FiO2. RT attempted to wean and he desatted to the high 80s. Today is his last day of remdesivir. ID suggests the use of convalescent plasma and we have ordered a type and cross and the plasma. 04/16. Remains on high flow oxygen. I discussed details about convalescent plasma with patient and spouse and they agree with plasma. 04/17. His oxygen sats has improved. He is on 5L oxygen. Discussed with Deisi PITTS who requests for transfer of patient to the [facility] where he will continue treatment. Informed patient about the development and he agrees. Disposition: [id number] ANOTHER TYPE HLTHCARE Time spent for discharge: 40 mins - Discharge Diagnoses (1) Acute respiratory failure with hypoxia Status: Acute (2) Bilateral pneumonia Status: Acute (3) Non-sustained ventricular tachycardia Status: Acute (4) Pneumonia due to COVID-19 virus Status: Acute (5) Pulmonary embolism Status: Acute Core Measure Documentation - Palliative Care Palliative Care/ Comfort Measures: Not Applicable - Core Measures Any of the following diagnoses?: none Exam - Constitutional Vitals: Temp Pulse Resp BP Pulse Ox 98.0 F 68 18 141/84 95 04/17/20 11:59 04/17/20 11:59 04/17/20 11:59 04/17/20 11:59 04/17/20 11:59 General appearance: Present: no acute distress, well-nourished - EENT Eyes: Present: PERRL ENT: hearing intact, clear oral mucosa - Neck Neck: Present: supple, normal ROM - Respiratory Respiratory effort: normal Respiratory: bilateral: CTA - Cardiovascular Heart Sounds: Present: S1 & S2. Absent: rub, click - Extremities Extremities: pulses symmetrical, No edema Peripheral Pulses: within normal limits - Abdominal General gastrointestinal: Present: soft, non-tender, non-distended, normal bowel sounds Male genitourinary: Present: normal - Integumentary Integumentary: Present: clear, warm, dry - Musculoskeletal Musculoskeletal: gait normal, strength equal bilaterally - Psychiatric Psychiatric: appropriate mood/affect, intact judgment & insight - Neurologic Neurologic: CNII-XII intact, moves all extremities Plan Follow up with: PRIMARY CARE, [Primary Care Provider] - 3-5 Days
--- NOTE | 2020-04-17 13:32 | Progress Note ---
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 Subjective Date of service: 04/17/20 Principal diagnosis: COVID-19 Interval history: Patient is comfortable, no cardiac complaints. Telemetry shows normal sinus rhythm, no further ventricular ectopy has been reported. Objective Vital Signs Temp Pulse Resp BP Pulse Ox 04/17/20 11:59 98.0 F 68 18 141/84 95 04/17/20 05:44 98.5 F 57 L 20 139/87 94 04/16/20 22:40 76 135/65 04/16/20 21:06 92 04/16/20 18:52 99.0 F 76 24 135/65 94 04/16/20 17:20 94 04/16/20 15:25 96 - Physical Examination Narrative exam: Full physical exam is deferred due to COVID-19 infection. General: No Apparent Distress - Labs and Meds CBC 04/17/20 Range/Units 07:06 WBC 12.1 H (4.5-11.0) K/mm3 RBC 5.04 H (3.65-5.03) M/mm3 Hgb 14.9 (11.8-15.2) gm/dl Hct 44.6 (35.5-45.6) % Plt Count 292 (140-440) K/mm3 Comprehensive Metabolic Panel 04/17/20 Range/Units 07:06 Sodium 139 (137-145) mmol/L Potassium 4.9 (3.6-5.0) mmol/L Chloride 105.3 (98-107) mmol/L Carbon Dioxide 30 (22-30) mmol/L BUN 22 H (9-20) mg/dL Creatinine 1.0 (0.8-1.3) mg/dL Glucose 132 H (75-100) mg/dL Calcium 8.3 L (8.4-10.2) mg/dL - Allied health notes Allied health notes reviewed: RT
--- NOTE | 2020-04-17 14:49 | Progress Note ---
Assessment and Plan 1. Acute kidney injury: Likely vasomotor nephropathy in the setting of hypotension and COVID-19 infection. Renal US ordered. Monitor renal function. Creatinine level improved. Avoid nephrotoxic agents. Meds dosage based on GFR. 2. FEN: Metabolic acidosis, improved, monitor. Encouraged PO fluids. Monitor lytes and volume status. 3. Acute respiratory failure with hypoxia: 2/2 COVID PNA. On HFNC O2. 4. Severe sepsis, POA: 2/2 COVID PNA. Followed by ID. 5. Severe COVID pneumonia: S/p Remdesivir. On IV Decadron. Trend inflammatory markers. 6. PE: Lovenox. 7. Elevated LFTs: 2/2 COVID. Subjective: Patient was not examined today. However the examination findings from other providers noted. The current and previous medical records are reviewed in detail as are laboratory and imaging data reviewed when appropriate. Medications being given are also reviewed. In addition the case has been discussed with the attending hospitalist and the nurse when needed. New renal recommendations as above. Examination: Subjective Date of service: 04/17/20 Principal diagnosis: COVID-19 Objective - Vital Signs Vital signs: Vital Signs - 12hr 04/17/20 04/17/20 05:44 11:59 Temperature 98.5 F 98.0 F Pulse Rate 57 L 68 Respiratory 20 18 Rate Blood Pressure 139/87 141/84 O2 Sat by Pulse 94 95 Oximetry - Lab 04/17/20 07:06 04/17/20 07:06 Most recent lab results ABG pH 7.406 pH Units (7.350-7.450) 04/17/20 05:40 ABG pCO2 43.5 mm Hg 04/17/20 05:40 ABG pO2 98.9 mm Hg (80.0-90.0) H 04/17/20 05:40 ABG HCO3 26.8 mmol/L (20.0-26.0) H 04/17/20 05:40 ABG O2 Saturation 97.4 % (95.0-99.0) 04/17/20 05:40 Calcium 8.3 mg/dL (8.4-10.2) L 04/17/20 07:06 Urine Creatinine 176.6 mg/dL (0.1-20.0) H 04/09/20 Unknown Urine Sodium 35 mmol/L 04/09/20 Unknown Medications & Allergies - Medications Allergies/Adverse Reactions: Allergies cefepime Allergy (Verified 04/09/20 03:19) Hives Active Medications: Generic Name Dose Route Start Last Admin Trade Name Freq PRN Reason Stop Dose Admin Acetaminophen 650 mg 04/09/20 02:25 04/17/20 00:02 Acetaminophen 325 Mg Tab PO 650 mg Q6H PRN Administration Pain MILD(1-3)/Fever >100.5/SARKAR Dexamethasone 6 mg 04/12/20 11:00 04/17/20 10:29 Dexamethasone 4 Mg/Ml Vial IV 04/18/20 21:59 6 mg Q12HR GLORIA Administration Diphenhydramine HCl 25 mg 04/12/20 22:44 04/17/20 00:02 Diphenhydramine 25 Mg Cap PO 25 mg QHS PRN Administration Sleep Enoxaparin Sodium 100 mg 04/12/20 10:00 04/17/20 10:30 Enoxaparin 100 Mg/1 Ml Inj SUB-Q 100 mg Q12HR GLORIA Administration Protocol Guaifenesin 10 ml 04/10/20 13:00 04/14/20 05:17 Guaifenesin Dm 200/20 Mg Oral Liqd 10 Ml PO 10 ml Q4H PRN Administration Cough Hydrophilic Ointment 1 applic 04/11/20 08:00 Lip Therapy Vaseline TP DIRECT PRN Dry Lips Magnesium Hydroxide 30 ml 04/09/20 02:25 Magnesium Hydroxide (Mom) Oral Liqd Udc PO Q4H PRN Constipation Metoprolol Tartrate 25 mg 04/13/20 22:00 04/17/20 10:30 Metoprolol Tartrate 25 Mg Tab PO 25 mg BID GLORIA Administration Midodrine 5 mg 04/09/20 16:00 04/17/20 13:33 Midodrine 5 Mg Tab PO Not Given TID@0800,1200,1600 [facility] Morphine Sulfate 2 mg 04/09/20 02:25 04/09/20 18:00 Morphine 2 Mg/1 Ml Inj IV 2 mg Q4H PRN Administration Pain, Moderate (4-6) Ondansetron HCl 4 mg 04/09/20 02:25 04/09/20 18:01 Ondansetron 4 Mg/2 Ml Inj IV 4 mg Q8H PRN Administration Nausea And Vomiting Sodium Chloride 10 ml 04/09/20 10:00 04/17/20 10:32 Sodium Chloride 0.9% 10 Ml Flush Syringe IV 10 ml BID GLORIA Administration Sodium Chloride 10 ml 04/09/20 02:25 Sodium Chloride 0.9% 10 Ml Flush Syringe IV PRN PRN LINE FLUSH
== END 2020-04-17 16:25 | DRG 871 ==
LOC: ED 21:30 → IMCU 04-09 00:21 → 3A 04-09 19:45
PROVIDERS: ADMIT Internal Medicine Geriatric Medicine; ATTEND Internal Medicine
PROC: XW033E5 Introduction of Remdesivir Anti-infective into Peripheral Vein, Percutaneous Approach, New Technology Group 5 (ICD-10-PCS; principal; 2020-04-09)
PROC: 4A033R1 Measurement of Arterial Saturation, Peripheral, Percutaneous Approach (ICD-10-PCS; 2020-04-09)
PROC: 5A09357 Assistance with Respiratory Ventilation, Less than 24 Consecutive Hours, Continuous Positive Airway Pressure (ICD-10-PCS; 2020-04-11)
DX: A41.89 Other specified sepsis (principal); U07.1 COVID-19; J96.01 Acute respiratory failure with hypoxia; J12.89 Other viral pneumonia; N17.0 Acute kidney failure with tubular necrosis; I26.99 Other pulmonary embolism without acute cor pulmonale; I47.2 Ventricular tachycardia; R65.20 Severe sepsis without septic shock; Z88.8 Allergy status to other drugs, medicaments and biological substances; R19.7 Diarrhea, unspecified
CPT/HCPCS: 36415; 36600; 71045; 71275; 80048; 80053; 80076; 81001; 82140; 82570; 82728; 82803; 82947; 82962; 83615; 84145; 84300; 84443; 85007; 85025; 85027; 85379; 85610; 86140; 86850; 86900; 86901; 87040; 89050; 93005; 93970; 94660; 94760; 96361; 96365; 96366; 96367; 96368; 96372; 96375; G0378; J0456; J0692; J1100; J1170; J1200; J1644; J1650; J2270; J2405; J7030; J7050; Q9967; U0003